=== PATIENT | female | born 1970 | race Caucasian/White ===

== ENCOUNTER → 2025-05-15 | Outpatient (CLI) | payer OTHER, SELFPAY ==
--- NOTE | 2025-05-15 14:20 | US_ITS ---
PROCEDURE: KIDNEY AND BLADDER 05/15/2025 REASON FOR EXAM: UTI TECHNIQUE: KIDNEY AND BLADDER COMPARISON: None FINDINGS: Kidneys: Normal renal sizes, parenchymal thicknesses, and echotextures. [place]: No hydronephrosis Cysts or Masses: No cysts or large solid renal masses. RIGHT Kidney Size: 11.2 cm x 5.5 cm x 4.2 cm Volume: 136.56 mL Cortical Thickness (if discernible): 11 mm (>6mm is normal) LEFT Kidney Size: 10.8 cm x 6.1 cm x 5.1 cm Volume: 174.59 mL Cortical Thickness (if discernible): 12.8 mm (>6mm is normal) The urinary bladder is unremarkable. US/Kidney and Bladder IMPRESSION: NORMAL RENAL ULTRASOUND. Reading Location: [id number]
--- OUTSIDE RECORDS SUMMARY | 2025-05-15 18:30 | XMS RPT_ITS | CCD ---
Author Organization [facility] Care Team Providers Care Report Programmer Name Role Phone Karengiovanni Brant Engle Unavailable Unavailable Newbill, Brnat Avilezel Unavailable Unavailable Klonaris, Sam A Unavailable Unavailable Newbill, Brant Engle Unavailable Unavailable Klonaris, Sam A Unavailable Unavailable Newbill, Brant Engle Unavailable Unavailable Tizzano, Jorge P Unavailable Unavailable Klonaris, Sam A Unavailable Unavailable Tizzano, Jorge P Unavailable Unavailable Klonaris, Sam A Unavailable Unavailable Tizzano, Jorge P Unavailable Unavailable Tizzano, Jorge P Unavailable Unavailable Klonaris, Sam A Unavailable Unavailable Tizzano, Jorge P Unavailable Unavailable Klonaris, Sam A Unavailable Unavailable Tizzano, Jorge P Unavailable Unavailable Tizzano, Jorge P Unavailable Unavailable Tizzano, Jorge P Unavailable Unavailable Klonaris, Sam A Unavailable Unavailable Newbill, Brant Engle Unavailable Unavailable Newbill, Brant Engle Unavailable Unavailable Klonaris, Sam A Unavailable Unavailable Newbill, Brant Engle Unavailable Unavailable Klonaris, Sam A Unavailable Unavailable Newbill, Brant Engle Unavailable Unavailable Tizzano, Jorge P Unavailable Unavailable Klonaris, Sam A Unavailable Unavailable Unavailable Primary Care Provider Unavailabl e Klonaris Sam TURPIN Primary Care Provider Tito SPOT WELDER LINE.Angy TURPIN Primary Care Provider Angy Francis CNP Primary Care Provider IAN MORTON Admitting Unavaila ble ANGY FRANCIS Primary Care UnavailIAN Maldonado Admitting Unavaila ble IAN MORTON Attending Unavaila ble KLSAM ELLISON Primary Care Unavailable Tito SPOT WELDER LINE.Angy TURPIN [facility] Primary Care Provider IAN MORTON Attending Unavaila ble KLONARIS, SAM Primary Care Unavailable IAN MORTON Attending Unavaila ble KLONARIS, SAM Primary Care Unavailable KLONARIS, SAM Primary Care Unavailable IAN MORTON Attending Unavaila ble IAN MORTON Attending Unavaila ble TITO, [facility] Primary Care Unavailabl e IAN MORTON Attending Unavaila ble TITO, [facility] Primary Care Unavailabl e IAN MORTON Referring Unavaila ble TITO, [facility] Primary Care Unavailabl e IAN MORTON Admitting Unavaila ble TITO, [facility] Primary Care Unavailabl e IAN MORTON Referring Unavaila ble IAN MORTON Admitting Unavaila ble IAN MORTON Referring Unavaila ble TITO, [facility] Primary Care Unavailabl e IAN MORTON Admitting Unavaila ble IAN MORTON Referring Unavaila ble KLONARIS, SAM Primary Care Unavailable IAN MORTON Attending Unavaila ble TITO, [facility] Primary Care Unavailabl e IAN MORTON Referring Unavaila ble TITO, [facility] Primary Care Unavailabl e IAN MORTON Attending Unavaila ble TITO, [facility] Primary Care Unavailabl e IAN MORTON Referring Unavaila ble TITO, [facility] Primary Care Unavailabl e IAN MORTON Attending Unavaila ble TITO, [facility] Primary Care Unavailabl e IAN MORTON Referring Unavaila ble TITO, [facility] Primary Care Unavailabl e IAN MORTON Attending Unavaila ble TITO, [facility] Primary Care Unavailabl e IAN MORTON Attending Unavaila ble TITO, [facility] Primary Care Unavailabl e IAN MORTON Admitting Unavaila ble IAN MORTON Referring Unavaila ble TITO, [facility] Primary Care Unavailabl e IAN MORTON Attending Unavaila ble TITO, ANGY CHANELL Primary Care Unavailabl e Tito SPOT WELDER LINE.BREAD WRAPPING MACHINE FEEDERAngy Primary Care Provider Tito SPOT WELDER LINE.BREAD WRAPPING MACHINE FEEDERAngy Primary Care Provider TITOHOLLEYE Cisco Primary Care Unavailable COOPERRIDER II, FARTUN H Attending Unavailabl e COOPERRIDER II, FARTUN H Referring Unavailabl e CLDYE BLANCO Attending Unavailable TITO, ANGY M Primary Care Unavailable CLYDE BLANCO Attending Unavailable TITO, ANGY M Primary Care Unavailable Tito SPOT WELDER LINE-BREAD WRAPPING MACHINE FEEDER, Angy Gary Primary Care Prov ider ANGY FRANCIS Attending Unavailable TITO, ANGY M Primary Care Unavailable TITO, ANGY M Attending Unavailable SELF Referring Unavailable TITO, ANGY M Primary Care Unavailable TITO, ANGY M Referring Unavailable TITO, ANGY M Primary Care Unavailable TITO, ANGY M Primary Care Unavailable LISA CONRAD Attending Unavailable TITO, ANGY M Primary Care Unavailable TITO, ANGY M Referring Unavailable TITO, ANGY M Primary Care Unavailable TITO, ANGY M Referring Unavailable TITO, ANGY M Referring Unavailable TITO, ANGY M Primary Care Unavailable TITO, ANGY CHANELL Primary Care Unavailabl e RICO EATON Attending Unavailable TITO, ANGY CHANELL Primary Care UnavailRICO Juarze Attending Unavailable [facility] Doctor, Out of Primary Care Provider Unavai lena [facility] Doctor, Out of Referring Provider Unavailab milly Encarnacion MD, Dr. Vizcarra Attending Provider [phone] Carmita Encarnacion Attending Unavailable [facility] Doctor, Out of Primary Care Unavailable [facility] Doctor, Out of Referring Unavailable Carmita Encarnacion Referring Unavailable [facility] Doctor, Out of Primary Care Unavailable Carmita Encarnacion Attending Unavailable Allergies Allergy Classification Reported Allergen(s) Allergy Type Date of Onset Reaction(s) Facility (1 source) meloxicam; Translations: [Mobic] Drug Allergy [facility] Repository (20 sources) meloxicam; Translations: [MELOXICAM] Drug Allergy 6 Swelling, Other (See Comments) [facility] Work Phone: (1 source) meloxicam Drug Allergy [facility] Repository Medications Current Medications Medication Drug Class(es) Dates Sig (Normalized) Sig (Original) amoxicillin 875 mg / clavulanate 125 mg oral tablet (1 source) Penicillin-class Antibacterial Start: 02-21-2025 End: 02-28-2025 take 1 tablet by mouth twice daily amoxicillin-clav ulanate (Augmentin) 875-125 mg tablet Indications: Acute cystitis with hematuria Take 1 tablet by mouth 2 times a day for 7 days. 14 tablet 02/21/2025 02/28/2025 Active ascorbic acid 500 mg oral tablet (9 sources) Vitamin C take 1 tablet by mouth once daily ascorbic acid, vitamin C, (VITAMIN C) 500 MG tablet Take 1 (one) tablet (500 mg total) by mouth daily Evening . 0 Active benoxinate hydrochloride 4 mg/ml / fluorescein sodium 3 mg/ml ophthalmic solution (2 sources) Diagnostic Dye Start: 11-15-2024 End: 11-15-2024 fluorescein-nelda xinate 0.3-0.4 % 1 Drop (FLURESS) Start: 11-15-2024 End: 11-15-2024 1 Drop, BOTH EYES, DIRECT ED, Starting on 11/15/24 at 1100, Until 11/15/24 at 2259, Administer for applanation tonometry. In the event of a Fluress shortage, administer Samantha-Fluor 1 drop into both eyes as directed for applanation tonometry cephalexin 250 mg oral capsule (1 source) Cephalosporin Antibacterial Start: 05-08-2025 take 1 capsule by mouth once Cephalexin 250 mg capsule Active 250 mg PO ONCE 30 May 08, 2025 12:00am immediately after intercourse cholecalciferol 0.025 mg oral tablet (11 sources) Vitamin D take 1 tablet by mouth once daily cholecalciferol, vitamin D3, 1,000 unit tablet Take 1 (one) tablet (1,000 Units total) by mouth daily Evening . 0 Active End: 02-09-2022 cholecalciferol, vitamin D3, 400 unit Tab Take by mouth daily . 0 02/09/2022 Discontinued collagen/biotin/ascorbic aci d (COLLAGEN 1500 PLUS C ORAL) (9 sources) collagen/biotin/ ascorbic acid (COLLAGEN 1500 PLUS C ORAL) Take by mouth Morning . 0 Active collagen/biotin/ ascorbic acid (COLLAGEN 1500 PLUS C ORAL) Take by mouth . 0 Active estradiol 0.1 mg/ml vaginal cream (1 source) Estrogen Start: 05-08-2025 Estradiol 0.01 % (0.1 mg/gram) cream Active 1 g VAGINAL 3 TIMES A WEEK 42.5 90 3 May 08, 2025 12:00am LORazepam 0.5 mg oral tablet (2 sources) Benzodiazepine Start: 12-17-2024 End: 12-24-2024 take 1 tablet by mouth twice daily as needed LORazepam (ATIVAN) 0.5 mg Indications: Anticipatory anxiety Take 1 tablet by mouth two times a day as needed (prior to flying) for up to 7 days. 12 tablet 12/17/2024 12/24/2024 Active Start: 05-30-2022 End: 06-01-2022 take 1 tablet by mouth twice daily as needed LORazepam (ATIVAN) 0.5 mg Indications: Anticipatory anxiety Take 1 tablet by mouth twice daily as needed (prior to flying) for up to 2 days. 4 tablet 0 05/30/2022 06/01/2022 Active Comment on above: Take 1 tablet by wilfredo twice daily as needed (prior to flying) for up to 2 days. multivitamin (THERAGRAN) per tablet (9 sources) take 1 tablet by mouth once daily multivitamin (THERAGRAN) per tablet Take 1 (one) tablet by mouth daily Evening . 0 Active take 1 tablet by mouth once andres y multivitamin (THERAGRAN) per tablet Take 1 tablet by mouth daily Evening . 0 Active take 1 tablet by mouth once andres y multivitamin (THERAGRAN) per tablet Take 1 tablet by mouth daily . 0 Active nitrofurantoin, macrocrystals 25 mg / nitrofurantoin, monohydrate 75 mg oral capsule (3 sources) Nitrofuran Antibacterial Start: 04-04-2025 End: 04-11-2025 take 1 capsule by mouth twice daily nitrofurantoin, macrocrystal-monohydrate, (Macrobid) 100 mg capsule Indications: Acute cystitis with hematuria Take 1 capsule (100 mg) by mouth 2 times a day for 7 days. 14 capsule 04/04/2025 04/11/2025 Active Start: 03-03-2025 End: 03-10-2025 take 1 capsule by mouth twice daily nitrofurantoin monohydrate and macrocrystal (MACROBID) 100 mg capsule Indications: Acute cystitis with hematuria Take 1 capsule by mouth two times a day for 7 days. 14 capsule 03/03/2025 03/10/2025 omega-3 fatty acids/fish oil (fish oil-omega-3 fatty acids) 300-1,000 mg capsule (9 sources) take 2 capsules by m outh once daily omega-3 fatty acids/fish oil (fish oil-omega-3 fatty acids) 300-1,000 mg capsule Take 2 (two) capsules by mouth daily evening . 0 Active take 1 capsule by mouth once hsirley ly omega-3 fatty acids/fish oil (fish oil-omega-3 fatty acids) 300-1,000 mg capsule Take 2 g by mouth daily evening . 0 Active take 1 capsule by mouth once shirley ly omega-3 fatty acids/fish oil (fish oil-omega-3 fatty acids) 300-1,000 mg capsule Take 2 g by mouth daily . 0 Active phenylephrine hydrochloride 25 mg/ml ophthalmic solution (2 sources) alpha-1 Adrenergic Agonist Start: 11-20-2024 End: 11-21-2024 PHENYLephrine 2.5 % 1 Drop (AK-DILATE, NOLA-SYNEPHRINE) proparacaine hydrochloride 5 mg/ml ophthalmic solution (3 sources) Local Anesthetic Start: 11-20-2024 End: 11-22-2024 proparacaine 0.5 % 1 Drop (ALCAINE) tropicamide 10 mg/ml ophthalmic solution (7 sources) Anticholinergic Start: 11-20-2024 End: 11-21-2024 tropicamide 1 % 1 Drop (MYDRIACYL) Start: 11-15-2024 End: 11-15-2024 tropicamide 1 % 1 Drop (MYDR IACYL) Start: 11-15-2024 End: 11-15-2024 1 Drop, BOTH EYES, DIRECT ED, Starting on 11/15/24 at 1100, Until 11/15/24 at 2259, Administer for dilation Start: 05-30-2024 End: 05-31-2024 tropicamide 0.5 % 1 Drop (MY DRIACYL) Start: 05-30-2024 End: 05-31-2024 1 Drop, BOTH EYES, DIRECT ED, Starting on 05/30/24 at 1630, Until 05/31/24 at 0429, Administer for dilation Start: 05-12-2022 End: 05-12-2022 tropicamide 0.5 % 1 Drop (OFELIA FRANCOIS) Completed/Discontinued Medications Medication Drug Class(es) Dates Sig (Normalized) Sig (Original) diclofenac sodium 0.01 mg/mg topical gel (20 sources) Nonsteroidal Anti-inflammatory Drug Start: 05-11-2020 End: 01-09-2024 apply 2 g topically four times daily diclofenac sodium (VOLTAREN) 1 % topical gel Indications: Pain in joint, multiple sites , Neck pain , Chronic left shoulder pain , Primary osteoarthritis of left shoulder APPLY 2 GRAMS TO AFFECTED AREA FOUR TIMES DAILY. 200 g 0 05/11/2020 01/09/2024 Discontinued Start: 05-11-2020 diclofenac sod ium 1 % Gel As needed . 0 05/11/2020 Active Comment on above: APPLY 2 GRAMS TO AFF ECTED AREA FOUR TIMES DAILY. ibuprofen 200 mg oral tablet (20 sources) Nonsteroidal Anti-inflammatory Drug End: 2024 take 1 tablet by mouth every six hours as needed ibuprofen (MOTRIN) 200 mg tablet Take 200 mg by mouth every 6 hours as needed. 01/29/2025 Discontinued Comment on above: Take 200 mg by mouth every 6 hours as needed. methylPREDNISolone (2 sources) Corticosteroid Start: 2021 End: 2021 methylPREDNISolone (MEDROL DOSEPACK) 4 mg tablet Follow package directions . 21 tablet 0 11/24/2021 11/30/2021 Start: 11-24-2021 End: 11-30-2021 methylPREDNISolone (MEDROL D OSEPACK) 4 mg tablet Follow package directions . 21 tablet 0 11/24/2021 11/30/2021 Active multivitamin tablet (17 sources) End: 01-29-2025 multivitamin tablet Take 1 t ablet by mouth. 01/29/2025 Discontinued multivitamin tab let Take 1 tablet by mouth. Active multivitamin tab let Take 1 tablet by mouth. 0 Active Comment on above: Take 1 tablet by . naproxen 500 mg oral tablet (14 sources) Nonsteroidal Anti-inflammatory Drug Start: 0 End: 4 take 1 tablet by mouth twice daily as needed for pain naproxen (NAPROSYN) 500 mg tablet Indications: Chronic left shoulder pain , Chronic neck pain Take 1 tablet by mouth twice daily as needed (FOR PAIN - TAKE WITH FOOD.). 60 tablet 1 10/22/2019 01/09/2024 Discontinued Comment on above: Take 1 tablet by wilfredo twice daily as needed (FOR PAIN - TAKE WITH FOOD.). omega-3 fatty acids/fish oil (FISH OIL-OMEGA-3 FATTY ACIDS) 300-1,000 mg cap (17 sources) End: 5 omega-3 fatty acids/fish oil (FISH OIL-OMEGA-3 FATTY ACIDS) 300-1,000 mg cap Take 2 capsules by mouth. 01/29/2025 Discontinued omega-3 fatty ac ids/fish oil (FISH OIL-OMEGA-3 FATTY ACIDS) 300-1,000 mg cap Take 2 capsules by mouth. Active omega-3 fatty ac ids/fish oil (FISH OIL-OMEGA-3 FATTY ACIDS) 300-1,000 mg cap Take 2 capsules by mouth. 0 Active Comment on above: Take 2 capsules by m out. polymyxin b 11298 unt/ml / trimethoprim 1 mg/ml ophthalmic solution (6 sources) Dihydrofolate Reductase Inhibitor Antibacterial, Polymyxin-class Antibacterial Start: 5 End: 5 take 1 drop(s) into the eye(s) four times daily polymyxin B-trimethoprim (POLYTRIM) 10,000 unit- 1 mg/mL ophthalmic solution Use 1 Drop in the right eye four times daily. 10 mL 11/21/2024 01/29/2025 Discontinued Start: 11-20-2024 End: 11-21-2024 take 1 drop(s) into the eye(s) every two hours polymyxin B-trimethoprim (POLYTRIM) 10,000 unit- 1 mg/mL ophthalmic solution Use 1 Drop in the right eye every 2 hours. 10 mL 11/20/2024 11/21/2024 Discontinued sertraline 50 mg oral tablet (1 source) Serotonin Reuptake Inhibitor Start: 02-07-2021 End: 12-15-2021 take 1 tablet by mouth once daily sertraline (ZOLOFT) 50 mg tablet Take 1 tablet by mouth once daily. 30 tablet 2 02/07/2021 12/15/2021 Discontinued Comment on above: Take 1 tablet by wilfredo once daily. triamcinolone acetonide 40 mg/ml injectable suspension (2 sources) Corticosteroid Start: 04-30-2017 End: 04-30-2017 triamcinolone acetonide (KENALOG-40) injection 20 mg Start: 04-30-2017 End: 04-30-2017 triamcinolone acetonide (SANDEE ALOG-40) injection 20 mg 20 mg, Intra-articular, Once, 04/30/17 at 1230, For 1 dose, [facility] [id number] Problems Active Problems Problem Classification Problem Date Documented Da te Episodic/Chronic Acquired foot deformities (20 sources) Hammer toe; Translations: [Other hammer toe(s) (acquired), left foot] Onset: 01-24-2022 Chronic Anxiety disorders (20 sources) Anxiety; Translations: [Anxiety disorder, unspecified] Onset: 09-27-2016 Chronic Genitourinary symptoms and ill-defined conditions (5 sources) Dysuria; Translations: [Dysuria] Onset: 03-03-2025 03-22-2025 Episodic Heart valve disorders (1 source) Abnormal cardiac rate; Translations: [Unspecified abnormalities of heart beat] Episodic Inflammation; infection of eye (except that caused by tuberculosis or sexually transmitteddisease) (2 sources) Acute infectious conjunctivitis; Translations: [Unspecified acute conjunctivitis, right eye] 11-20-2024 Episodic Malaise and fatigue (1 source) Fatigue; Translations: [Other fatigue] Episodic Nonmalignant breast conditions (2 sources) Large breast; Translations: [Hypertrophy of breast] Episodic Nutritional deficiencies (4 sources) Vitamin D deficiency; Translations: [Vitamin D deficiency, unspecified] Onset: 01-29-2025 Chronic Other bone disease and musculoskeletal deformities (3 sources) Osteopenia; Translations: [Other specified disorders of bone density and structure, unspecified site] 01-29-2025 Episodic Other bone disease and musculoskeletal deformities (1 source) Other specified disorders of bone density and structure, unspecified site; Translations: [Osteopenia, unspecified location] Onset: 01-29-2025 Episodic Other connective tissue disease (5 sources) Pain in left foot; Translations: [Pain in left foot] Episodic Other eye disorders (1 source) Optic disc cup finding; Translations: [Other disorders of optic disc, bilateral] Chronic Other eye disorders (3 sources) Posterior vitreous detachment of right eye; Translations: [Vitreous degeneration, right eye] 11-15-2024 Chronic Other eye disorders (2 sources) Bilateral vitreous floaters; Translations: [Other vitreous opacities, bilateral] 11-20-2024 Chronic Other eye disorders (1 source) Dry eyes; Translations: [Dry eye syndrome of bilateral lacrimal glands] 05-30-2024 Episodic Other gastrointestinal disorders (1 source) Other constipation; Translations: [Chronic constipation] Onset: 03-03-2025 Episodic Other gastrointestinal disorders (1 source) Chronic constipation; Translations: [Other constipation] 03-03-2025 Episodic Other non-traumatic joint disorders (2 sources) Hip pain; Translations: [Pain in right hip] 01-09-2024 Episodic Other nutritional; endocrine; and metabolic disorders (8 sources) Obese class I; Translations: [Obesity, unspecified] Onset: 02-09-2022 02-09-2022 Chronic Other nutritional; endocrine; and metabolic disorders (1 source) Obesity; Translations: [Class 2 obesity without serious comorbidity with body mass index (BMI) of 36.0 to 36.9 in adult, unspecified obesity type] 01-29-2025 Chronic Other screening for suspected conditions (not mental disorders or infectious disease) (20 sources) Patient encounter status; Translations: [Encounter for screening mammogram for malignant neoplasm of breast] Onset: 05-24-2024 Episodic Residual codes; unclassified (3 sources) General well-being finding; Translations: [Personal history of other specified conditions] Episodic Residual codes; unclassified (2 sources) Other specified postprocedural states; Translations: [Other specified postprocedural states] Onset: 08-24-2022 Episodic Residual codes; unclassified (3 sources) Postmenopausal state; Translations: [Asymptomatic menopausal state] 01-29-2025 Episodic Residual codes; unclassified (1 source) Acquired absence of both cervix and uterus; Translations: [S/P hysterectomy] Onset: 03-03-2025 Episodic Residual codes; unclassified (1 source) Asymptomatic menopausal state; Translations: [Post-menopausal] Onset: 01-29-2025 Episodic Spondylosis; intervertebral disc disorders; other back problems (1 source) Cervical radiculopathy Chronic Spondylosis; intervertebral disc disorders; other back problems (1 source) Backache; Translations: [Dorsalgia, unspecified] Episodic Urinary tract infections (10 sources) Acute cystitis; Translations: [Acute cystitis with hematuria] Onset: 02-21-2025 02-21-2025 Episodic Past or Other Problems Problem Classification Problem Date Documented Date Episodic/Chronic Blindness and vision defects (20 sources) Regular astigmatism; Translations: [Regular astigmatism, unspecified eye] Onset: 05-04-2014 05-03-2018 Episodic Other connective tissue disease (1 source) Soft tissue lesion of shoulder region Episodic Other connective tissue disease (4 sources) Metatarsalgia of left foot; Translations: [Metatarsalgia, left foot] Onset: 12-08-2021 Episodic Other connective tissue disease (20 sources) Spasm; Translations: [Other muscle spasm] Onset: 09-27-2016 09-27-2016 Episodic Other connective tissue disease (2 sources) Pain in left foot; Translations: [Pain in left foot] Onset: 03-02-2022 Episodic Other connective tissue disease (1 source) Metatarsalgia, left foot; Translations: [Metatarsalgia, left foot] Onset: 12-08-2021 Episodic Other non-traumatic joint disorders (2 sources) Shoulder pain Episodic Residual codes; unclassified (2 sources) Personal history of other specified conditions; Translations: [Personal history of other specified conditions] Onset: 03-02-2022 Episodic Unclassified (1 source) Patient encounter status 01-29-2025 Results Test Name Value Interpretation Reference Range Facility MR/Chyna 05-08-2025 /[facility] [address] [place] [address], [address] [place] [address] OFFICE VISIT Date of Service: 05/08/25 MR#: [id number] Acct: [id number] Name: NAN FREY Rep #: [id number] : 1970 Provider: Dr. Carmita Flores i, MD Age/Sex: 55/F Location: [facility] Status: Signed Intake Vital Signs 05/08/25 11:43 Height 5 ft 8.5 in Weight: 235 lb BMI 35.2 BP 148/80 H Pulse 80 Temp 98 F Intake Visit Reasons: new- pressure and discomfort Chief Complaint: Pressure and discomfort [employer] Required: No Is patient in pain?: No Allergies meloxicam Allergy (Mild, Verified 05/08/25 13:24) Swelling Have you fallen in the past year?: No [facility] Medical History (Updated 05/12/25 @ 00:[address] Carmita Encarnacion MD) Constipation Overactive bladder Vaginal atrophy Urinary tract infection Back problem Osteopenia Hammer toe History of gallium scan Surgical History (Updated 05/08/25 @ 11:59 by Mary Engle) History of tonsillectomy and adenoidectomy History of laparoscopy H/O section History of hysterectomy HPI HPI Urology Chief Complaint: Pressure and discomfort Details: NAN FREY, is a 55 F. She is here for evaluation and management of urinary tract infections and urgency/frequency. The frequency started prior to the infections. She is voiding about 10 times during the day, 0-1 times at night. There is no urge incontinence where she cannot make it to the bathroom. There is no stress incontinence with cough, laugh, sneeze, lifting, etc. She is using no pads in 24 hours. She has had 3 urinary tract infections in the 3 months. She had recurrent symptoms a week or 2 after finishing antibiotics. She has not had visible blood in her urine. She is sexually active. She does think the infections are related to intercourse. There is no sensation of vaginal bulging. There is a heaviness and achey feeling. She has the following issues with chronic bowel function: chronic constipation. There is no pelvic pain. ROS Const Constitutional: No chills, fatigue, fever(s), headache(s), night sweats, weakness, weight change, abnormal sleep pattern or change in appetite Eyes Eyes: No change in vision ENT ENT: No headache(s) or dry mouth Resp Respiratory: No cough, chest congestion, shortness of breath or wheezing Cardio Cardiology: Positive for other (No chest pain.); No shortness of breath, irregular heart rhythm or lightheadedness Gastro GI: Positive for other (No nausea.); No abdominal pain, change in bowel habits, constipation, diarrhea or vomiting Musc Musculoskeletal: No abnormal gait Skin Skin: No yellowing of the eye, lesions, itchy eyes, rash or skin ulcer Neuro Neurology: No abnormal gait, confusion, dizziness, weakness, headache(s) or memory loss Psych Psychiatric: No abnormal sleep pattern, No change in appetite, No confusion and No memory loss Endo Endocrine: No fatigue, increased thirst/drinking or weight change Aller/Imm Allergy/Immunologic: No itchy eyes or wheezing Eleazar/Lymp Hematologic/Lymphatic: No easy bleeding, easy bruising or enlarged lymph nodes Exam Const General: cooperative, healthy appearing, comfortable and no acute distress [facility] Head: normocephalic and atraumatic Ears: hearing grossly normal bilaterally and external ears normal Nose: external nose normal Eyes General: appearance normal, both eyes and all related structures Neck Neck: normal visual inspection and trachea midline Chest Chest palpation inspection: normal inspection of the chest Resp Effort Inspection: normal respiratory effort, able to speak in complete sentences and symmetric chest movement Cardio Rate: regular rate GI Inspection: normal to inspection Palpation: soft and nontender General: No CVA tenderness Skin General: no rashes or lesions noted Neuro General: patient alert, patient awake, patient oriented x3 and CN's II-XI intact bilaterally Extrem General: normal to inspection Psych Appearance: grossly normal and well kempt Mental Status: mental status grossly normal Results POC UA Auto w/o Microscopy Office Urine Color YELLOW Last Edit by Mary Engle on 05/08/25 13:25 Office Urine Clarity Clear Last Edit by Mary Engle on 05/08/25 13:25 Office Urine Glucose Negative Last Edit by Mary Engle on 05/08/25 13:25 Office Urine Ketones Negative Last Edit by Mary Engle on 05/08/25 13:25 Office Urine Bilirubin Negative Last Edit by Mary Engle on 05/08/25 13:25 Office Urine Urobilinogen Negative Last Edit by Mary Engle on 05/08/25 13:25 Off Ur Spec Otto 1.015 Last Edit by Mary Engle on 05/08/25 13:25 Office Urine pH Last Edit by Mary Engle on 05/08/25 13:25 Office Urine Protein Last Edit by Mary Engle on 05/08/25 13:25 Office Urine Blood Negative Last Ed (more content not included)... Normal [facility] CULTURE, URINE, ROUTINEon CULTURE, URINE, ROUTINE SEE NOTE Normal [facility] Comment on above: Result Comment: CULTURE, URINE, ROUTINE Micro Number: [id number] Test Status: Final Specimen Source: Not given Specimen Quality: Adequate Result: No Growth Performed By: #### 3 95 #### [facility] [address] [facility], [address] [place] [address] Rifle Case Repairer: Tonio Crespo MD POCT UA (nonautomated w/o mi croscopy) manually resultedon 04-04-2025 Appearance (U) Cloudy Abnormal Clear [facility] Work Phone: [phone] Glucose Test strip (U) [Mass/Vol] Negative NEGATIVE mg/dl [facility] Work Phone: [phone] Hemoglobin Ql (U) SMALL (1+) Abnormal NEGATIVE [facility] Work Phone: [phone] Interpretation and review of laboratory results Abnormal [facility] Work Phone: [phone] Leukocyte esterase Test strip Ql (U) SMALL (1+) Abnormal NEGATIVE [facility] Work Phone: [phone] Nitrite Ql (U) Negative NEGATIVE [facility] Work Phone: [phone] pH (U) 6.0 [pH] No Reference Range Established [facility] Work Phone: [phone] POC Bilirubin, Urine Negative NEGATIVE [facility] Work Phone: [phone] POC Color, Urine Light-Yellow Straw, Yellow, Light-Yellow [facility] Work Phone: [phone] POC Ketones, Urine Negative NEGATIVE mg/dl [facility] Work Phone: [phone] POC Protein, Urine Negative NEGATIVE mg/dl [facility] Work Phone: [phone] POC Specific Otto, Urine <=1.005 1.005 - 1.035 [facility] Work Phone: [phone] POC Urobilinogen, Urine 0.2 0.2, 1.0 EU/DL [facility] Work Phone: [phone] [facility] Work Phone: [phone] BACTERIAL CULTURE, URINEOrde red By: Li Wong on 03-05-2025 Bacteria identified Cx Nom (U) No growth (<1,000 CFU/ml) [facility] Bacteria identified Cx Nom ( U)Ordered By: Li Wong on 03-05-2025 Interpretation and review of laboratory results Normal [facility] Bacteria Ur Culton 5 Bacteria identified Cx Nom (U) CULTURE, URINE: No growth (<1,000 CFU/ml) Normal [facility] Comment on above: Performed By: #### 6 30-4 ####[facility] [id number] [address] [facility] CNOVon 03-03-2025 CNOV Office Visit (FRANCHESKA WILKINSON) NAN FREY ([id number]) 1970 [facility] Date Time Provider Department 03/03/25 3:40 PM LISA CONRAD During your visit today, we recorded the following information about you: Temperature Pulse Respiration Blood pressure 97.4 degrees 65/minute 19/minute 122/68 Weight Height 106.6 kg 1.702 m Lisa Conrad APRN.BREAD WRAPPING MACHINE FEEDER 03/22/2025 8:59 PM Signed Subjective The patient consented to the use of Okan software for draft documentation of the visit consistent with [facility]?s Notice of Privacy Practices. UTI Nan Frey is a 54-year-old female presenting with dysuria and urinary frequency. Nan was diagnosed with a UTI at Urgent Care in [place] approximately 10 days ago and was prescribed Augmentin for 7 days, which she completed. She reports feeling well until this morning when she experienced dysuria and urinary frequency. She describes the pain as occurring towards the end of micturition and notes a sensation of bladder pressure. She denies hematuria, abdominal pain, nausea, or emesis. She reports chronic lower back pain and constipation, with no recent changes in these symptoms. She has a history of recurrent UTIs, with the last episode occurring in March of the previous year. She also reports pelvic pressure and dyspareunia, which she attributes to a hysterectomy performed 25 years ago. She has an upcoming appointment with a urogynecologist in April to address these concerns. She denies current use of prophylactic antibiotics post-coitus, a regimen she found effective in the past. She recently underwent a colonoscopy in August, which was reportedly normal. She occasionally uses Miralax for constipation but does not take it regularly. She also reports sporadic episodes of postprandial cramping and diarrhea, occurring 3-4 times after eating certain foods, but denies consistent symptoms. I reviewed past medical, surgical, social, and family histories today and updated chart. Allergies, chronic medications, and supplements were also reviewed. PAST MEDICAL HISTORY Diagnosis Date Anxiety state NEGATIVE HISTORY OF No TB, DM, CA, heart dis, pnuemonia PAST SURGICAL HISTORY Procedure Laterality Date CHOLECYSTECTOMY HYSTEROSCOPY, DIAGNOSTIC (SEPARATE 1998 Hysteroscopy PAST SURGICAL HISTORY OF 1995, 1999 C-Sect x 2 TONSILLECTOMY HX Bilateral 09/24/2003 TOTAL ABDOMINAL HYSTERECT W/WO RMVL TUBE OVARY 2000 Hysterectomy, LEVI ALLERGIES Mobic [Meloxicam] MEDICATIONS No prescriptions on file. FAMILY HISTORY Problem Relation Age of Onset Hypertension Mother Hypertension Father Lipids Father other (stomach cancer) Father Esoph Ca (?) other (barretts es) Father Tremor Father other (memory probl) Father Hypertension Brother Dementia Paternal Grandmother 90s Heart Attack Paternal Grandfather 58 Social History Tobacco Use Smoking status: Former Current packs/day: 0.00 Types: Cigarettes Quit date: 04/29/2006 Years since quittin.9 Smokeless tobacco: Never Tobacco comments: quit 2006 Vaping Use Vaping status: Never Used Substance Use Topics Alcohol use: Not Currently Comment: very rarely Drug use: Never Review of Systems Genitourinary: Positive for dysuria. Gastrointestinal: (+) constipation, (+) abdominal cramping, (+) diarrhea, (-) abdominal pain, (-) nausea, (-) vomiting Genitourinary: (+) dysuria, (+) urinary frequency, (+) suprapubic pressure, (+) postcoital discomfort, (-) gross hematuria Musculoskeletal: (+) low back pain Objective BP 122/68 Pulse 65 Temp (Src) 97.4 (Oral) Resp 19 Ht 5' 7 (1.70m) Wt 235 lb (106.6kg) SpO2 96% BMI 36.80 kg/(m2). Physical Exam Constitutional: Appearance: Normal appearance. She is not toxic-appearing. HENT: Mouth/Throat: Lips: [place]. Mouth: Mucous membranes are moist. Pharynx: Oropharynx is clear. Eyes: General: No scleral icterus. Cardiovascular: Rate and Rhythm: Normal rate and regular rhythm. Heart sounds: Normal heart sounds. No murmur heard. Pulmonary: Effort: Pulmonary effort is normal. Breath sounds: Normal breath sounds. No wheezing or rales. Abdominal: General: Bowel sounds are normal. There is no distension or abdominal bruit. Palpations: Abdomen is soft. There is no hepatomegaly, splenomegaly or mass. Tenderness: There is no abdominal tenderness. There is no right CVA tenderness or left CVA tenderness. Musculoskeletal: Right lower leg: No edema. Left lower leg: No edema. Skin: General: Skin is warm and dry. Findings: No bruising or rash. Neurological: General: No focal deficit present. Mental Status: She is alert and oriented to person, place, and time. Sensory: Sensation is intact. Motor: Motor function is intact. Coordination: Coordination is intact. Psychiatric: Attention and Pe (more content not included)... Normal [facility] UA DIP, URINE (POC)on 2024 BILIRUBIN UA (POCT) Negative Negative [facility] CLARITY UA (POCT) Clear [facility] COLOR UA (POCT) Light yellow [facility] GLUCOSE UA (POCT) Negative Negative mg/dL [facility] Hemoglobin Ql (U) Large Abnormal Negative [facility] Interpretation and review of laboratory results Abnormal [facility] KETONE UA (POCT) Negative Negative mg/dL [facility] LEUKOCYTES UA (POCT) Small Abnormal Negative [facility] NITRITE UA (POCT) Negative [facility] PH UA (POCT) 6 4.5 - 8.0 [facility] Protein Ql (U) Negative Negative mg/dL [facility] SPECIFIC GRAVITY UA (POCT) <=1.005 Abnormal 1.005 - 1.030 [facility] UROBILINOGEN UA (POCT) 0.2 Normal E.U./dL [facility] Location:[facility], [address] [place] [address], [id number] [place] [address] POINT OF CARE [facility] BD DXA - AXIAL SKELETONon BD DXA - AXIAL SKELETON * * *Final Report* * * DATE OF EXAM: Feb 25 2025 4:48PM LDX 0804 - BD DXA - AXIAL SKELETON / PROCEDURE REASON: multiple diagnoses * * * * Physician Interpretation * * * * EXAMINATION: DXA BONE DENSITOMETRY BD DXA - AXIAL SKELETON PATIENT DEMOGRAPHICS: Age: 54 years, Gender: Female SCANNER INFORMATION: DXA Model: [facility] [employer] [id number] Date Scanned: 02/25/2025 4:48 PM CLINICAL HISTORY: DIAGNOSTIC Osteopenia, unspecified location Post-menopausal . RISK FACTORS FOR OSTEOPOROSIS AND ASSOCIATED FRACTURES REPORTED BY THIS PATIENT: Please refer to Bone Health Questionnaire in the EMR CURRENT THERAPY: Please refer to Bone Health Questionnaire in the EMR TECHNICAL LIMITATIONS: Degenerative disease of the spine RESULTS: Lumbar spine (L1, L2): 1.082 g/cm2, T-score -0.7, Z-score -1.0 Lumbar spine: 2022: 1.069 g/cm2 No statistically significant change Left Femoral Neck: 0.820 g/cm2, T-score -1.6, Z-score -1.3 Left Total Hip: 0.913 g/cm2, T-score -0.7, Z-score -0.9 Left Total Hip: 2022: 0.907 g/cm2 No statistically significant change CHANGE IS STATISTICALLY SIGNIFICANT IN THE SPINE OR HIP IF GREATER THAN OR EQUAL TO 0.04 g/cm2 VERTEBRAL FRACTURE ASSESSMENT Not performed. TRABECULAR BONE ASSESSMENT TBS not performed: not ordered IMPRESSION: THE LOWEST T-SCORE IS -1.6 IN THE RIGHT HIP 1) DIAGNOSIS (based on BMD alone): OSTEOPENIA Caution: Medical conditions other than osteoporosis may cause low bone density, such as osteomalacia or renal osteodystrophy. Clinical correlation is necessary. 2) FRACTURE RISK (based on FRAX): 10-year absolute fracture risk: - major osteoporotic fracture = 6.4 % - hip fracture = 0.5 % - A diagnosis of Osteoporosis, a 10 year probability of hip fracture greater than or equal to 3% or a 10 year probability of any major osteoporosis-related fracture greater than or equal to 20% should be considered for treatment. - DXA scanner generated FRAX calculations may slightly differ from online FRAX calculations due to differences in software versions. - All recommendations and calculations are to be considered as guidelines and should not replace sound clinical judgement - Caution: Fracture risk may be increased independent of BMD in patients with corticosteroid use, age greater than 65 years, or a history of prior fragility fracture. RECOMMENDATIONS: Follow-up in 2 years or as clinically indicated. Patients that are taking corticosteroids, are transplant recipients or have hyperparathyroidism should have annual follow-up. Follow-up scans should always be done on the same machine for accurate comparison. FOR MORE INFORMATION ABOUT DIAGNOSIS AND TREATMENT: [facility] Center for Osteoporosis and Metabolic Bone Disease:? www.ccf.org/arthritis/osteo National Osteoporosis Foundation:? www.nof.org International Society of Clinical Densitometry www.iscd.org Risk Assessor: JIM Transcribe Date/Time: Feb 28 2025 5:34P Dictated by : CHARO SCHMIDT MD This examination was interpreted and the report reviewed and electronically signed by: CHARO SCHMIDT MD on Feb 28 2025 5:35PM EST [id number] -1.6 Normal [facility] NANCY SCREENING W TOMOon 02-25 NANCY SCREENING W GINGER * * *Final Report* * * DATE OF EXAM: Feb 25 2025 4:45PM LDW 0582 - NANCY SCREENING W GINGER / PROCEDURE REASON: Encounter for screening mammogram for malignant neoplasm of breast * * * * Physician Interpretation * * * * [place] [address] #[id number] - NANCY SCREENING W GINGER HISTORY: 54 year-old patient seen for screening. No current complaints. Patient states no personal history of breast cancer. COMPARISON STUDIES: The present examination has been compared to prior imaging studies dated 07/06/2020 (mammogram), 12/21/2021 (mammogram), 01/10/2023 (mammogram) and 01/23/2024 (mammogram). MAMMOGRAM TECHNIQUE: The study was acquired using full field digital technology and interpreted from soft copy. Digital Breast Tomosynthesis (DBT) images were obtained and used to assist in the interpretation of this examination. MAMMOGRAM FINDINGS: There are scattered areas of fibroglandular density. No suspicious masses, calcifications or other abnormalities are seen in either breast. There are no significant interval changes. IMPRESSION: There is no mammographic evidence of malignancy in either breast. Routine screening mammogram is recommended. Annual mammogram will be due in 1 year. BI-RADS Category 1: Negative RISK: Based on the Tyrer-Cuzick (TC) risk assessment model, this patient has a 3.0% lifetime risk of developing breast cancer, meaning they are at average risk for developing breast cancer. However, this is only an estimate based on available history provided on the patient's questionnaire. We encourage all patients to talk with their providers about these results, further recommendations for managing breast health, and appropriate supplemental screening options if the patient has dense breast tissue. Interpreting Radiologist: Lilian Isaac M.D. Electronically signed on: 02/26/2025 Risk Assessor: MISSY Transcribe Date/Time: Feb 25 2025 4:11P Dictated by : LILIAN ISAAC MD This examination was interpreted and the report reviewed and electronically signed by: LILIAN ISAAC MD on Feb 26 2025 7:30AM EST [id number] Normal [facility] POCT UA (nonautomated w/o mi croscopy) manually resultedon 02-21-2025 Appearance (U) Cloudy Abnormal Clear [facility] Work Phone: Glucose Test strip (U) [Mass/Vol] Negative NEGATIVE mg/dl [facility] Work Phone: Hemoglobin Ql (U) LARGE (3+) Abnormal NEGATIVE [facility] Work Phone: Interpretation and review of laboratory results Abnormal [facility] Work Phone: Leukocyte esterase Test strip Ql (U) LARGE (3+) Abnormal NEGATIVE [facility] Work Phone: Nitrite Ql (U) Negative NEGATIVE [facility] Work Phone: pH (U) 5.5 [pH] No Reference Range Established [facility] Work Phone: POC Bilirubin, Urine Negative NEGATIVE [facility] Work Phone: POC Color, Urine Yellow Straw, Yellow, Light-Yellow [facility] Work Phone: POC Ketones, Urine Negative NEGATIVE mg/dl [facility] Work Phone: POC Protein, Urine 30 (1+) Abnormal NEGATIVE mg/dl [facility] Work Phone: POC Specific Otto, Urine 1.010 1.005 - 1.035 [facility] Work Phone: POC Urobilinogen, Urine 0.2 0.2, 1.0 EU/DL [facility] Work Phone: [facility] Work Phone: 25(OH)D3 [facility] 2024 25-hydroxyvitamin D3 [Mass/Vol] 62.4 ng/mL Normal >=30.0 [facility] Comment on above: Order Comment: Speci men Type: BLOOD SPECIMEN Ordering Facility: [facility] Address: [address] [place] [address] Result Comment: Clas sification of 25 [place] Vitamin D status: Deficiency: <= 20.0 ng/ml. Insufficiency: 21.0-29.0 ng/ml. Sufficiency: >= 30.0 ng/ml. Performed By: #### 1 989-3 #### [facility] CLIA [id number] [address] [place] [address] [place] CBC panel Auto (Bld)on 02-06 Erythrocyte distribution width (RBC) [Ratio] 12.5 % Normal 11.5-15.0 [facility] Comment on above: Order Comment: Speci men Type: BLOOD SPECIMEN Ordering Facility: [facility] Address: [address] [place] [address] Performed By: #### 5 8410-2 #### [facility] CLIA [id number] [address] [place] [address] [place] Hematocrit (Bld) [Volume fraction] 40.1 % Normal 36.0-46.0 [facility] Comment on above: Order Comment: Speci men Type: BLOOD SPECIMEN Ordering Facility: [facility] Address: [address] [place] [address] Performed By: #### 5 8410-2 #### [facility] CLIA [id number] [address] [place] [address] [place] Hemoglobin (Bld) [Mass/Vol] 13.3 g/dL Normal 11.5-15.5 [facility] Comment on above: Order Comment: Speci men Type: BLOOD SPECIMEN Ordering Facility: [facility] Address: [address] [place] [address] Performed By: #### 5 8410-2 #### [facility] CLIA [id number] [address] [place], [place] [address] [place] [address] [place] MCH (RBC) [Entitic mass] 29.0 pg Normal 26.0-34.0 [facility] Comment on above: Order Comment: Speci men Type: BLOOD SPECIMEN Ordering Facility: [facility] Address: [address] [place] [address] Performed By: #### 5 8410-2 #### [facility] CLIA [id number] [address] [place] [address] [place] MCHC (RBC) [Mass/Vol] 33.2 g/dL Normal 30.5-36.0 [facility] Comment on above: Order Comment: Speci men Type: BLOOD SPECIMEN Ordering Facility: [facility] Address: [address] [place] [address] Performed By: #### 5 8410-2 #### [facility] CLIA [id number] [address] [place] [id number] [place] MCV (RBC) [Entitic vol] 87.6 fL Normal 80.0-100.0 [facility] Comment on above: Order Comment: Speci men Type: BLOOD SPECIMEN Ordering Facility: [facility] Address: [address] [place] [address] Performed By: #### 5 8410-2 #### [facility] CLIA [id number] [address] [place] [address] [place] Platelet mean volume (Bld) [Entitic vol] 9.3 fL Normal 9.0-12.7 [facility] Comment on above: Order Comment: Speci men Type: BLOOD SPECIMEN Ordering Facility: [facility] Address: [address] [place] [address] Performed By: #### 5 8410-2 #### [facility] CLIA [id number] [address] [place] [address] [place] Platelets (Bld) [#/Vol] 270 10*3/uL Normal 150-400 [facility] Comment on above: Order Comment: Speci men Type: BLOOD SPECIMEN Ordering Facility: [facility] Address: [address] [place] [address] Performed By: #### 5 8410-2 #### [facility] CLIA [id number] [address] [place] [address] [place] RBC (Bld) [#/Vol] 4.58 10*6/uL Normal 3.90-5.20 [facility] Comment on above: Order Comment: Speci men Type: BLOOD SPECIMEN Ordering Facility: [facility] Address: [address] [place] [address] Performed By: #### 5 8410-2 #### [facility] CLIA [id number] [address] [place] [address] [place] WBC (Bld) [#/Vol] 6.38 10*3/uL Normal 3.70-11.00 [facility] Comment on above: Order Comment: Speci men Type: BLOOD SPECIMEN Ordering Facility: [facility] Address: [address] [place] [address] Performed By: #### 5 8410-2 #### [facility] CLIA [id number] [address] [place] [address] [facility] [place] Comprehensive metabolic 2000 panelon 02-06-2025 Albumin [Mass/Vol] 4.2 g/dL Normal 3.9-4.9 [facility] Comment on above: Order Comment: Speci men Type: BLOOD SPECIMEN Ordering Facility: [facility] Address: [address] [place] [address] Performed By: #### 2 4323-8, 54768-4 #### [facility] CLIA [id number] [address] [place] [address] [place] ALP [Catalytic activity/Vol] 107 U/L Normal 34-123 [facility] Comment on above: Order Comment: Speci men Type: BLOOD SPECIMEN Ordering Facility: [facility] Address: [address] [place], [place] [address] Performed By: #### 2 4323-8, 77648-8 #### [facility] CLIA [id number] [address] [place] [address] [place] ALT With P-5'-P [Catalytic activity/Vol] 25 U/L Normal 7-38 [facility] Comment on above: Order Comment: Speci men Type: BLOOD SPECIMEN Ordering Facility: [facility] Address: [address] [place], [place] [address] Performed By: #### 2 4323-8, 12999-9 #### [facility] CLIA [id number] [address] [place] [address] [place] Anion gap [Moles/Vol] 11 mmol/L Normal 8-15 [facility] Comment on above: Order Comment: Speci men Type: BLOOD SPECIMEN Ordering Facility: [facility] Address: [address] [place] [address] Performed By: #### 2 4323-8, 91573-7 #### [facility] CLIA [id number] [address] [place] [address] [place] AST With P-5'-P [Catalytic activity/Vol] 27 U/L Normal 13-35 [facility] Comment on above: Order Comment: Speci men Type: BLOOD SPECIMEN Ordering Facility: [facility] Address: [address] [place] [address] Performed By: #### 2 4323-8, 52036-9 #### [facility] CLIA [id number] [address] [place] [address] [place] Bilirubin [Mass/Vol] 0.4 mg/dL Normal 0.2-1.3 [facility] Comment on above: Order Comment: Speci men Type: BLOOD SPECIMEN Ordering Facility: [facility] Address: [address] [place] [address] Performed By: #### 2 4323-8, 80407-2 #### [facility] CLIA [id number] [address] [place] [address] [place] Calcium [Mass/Vol] 9.7 mg/dL Normal 8.5-10.2 [facility] Comment on above: Order Comment: Speci men Type: BLOOD SPECIMEN Ordering Facility: [facility] Address: [address] [place] [address] Performed By: #### 2 4323-8, 64203-2 #### [facility] CLIA [id number] [address] [place] [address] [place] Chloride [Moles/Vol] 105 mmol/L Normal 98-107 [facility] Comment on above: Order Comment: Speci men Type: BLOOD SPECIMEN Ordering Facility: [facility] Address: [address] [place] [address] Performed By: #### 2 4323-8, 75824-3 #### [facility] CLIA [id number] [address] [place] [address] [place] CO2 [Moles/Vol] 26 mmol/L Normal 22-30 [facility] Comment on above: Order Comment: Speci men Type: BLOOD SPECIMEN Ordering Facility: [facility] Address: [address] [place] [address] Performed By: #### 2 4323-8, 65026-7 #### [facility] [facility] CLIA [id number] [address] [place] [address] [place] Creatinine [Mass/Vol] 0.90 mg/dL Normal 0.58-0.96 [facility] Comment on above: Order Comment: Candi sosa Type: BLOOD SPECIMEN Ordering Facility: [facility] Address: [address] [place] [address] Performed By: #### 2 4323-8, 19442-0 #### [facility] CLIA [id number] [address] [place] [address] [place] Creatinine and Glomerular filtration rate.predicted panel (S/P/Bld) 76 mL/min/1.73m??? Normal >=60 [facility] Comment on above: Order Comment: Candi sosa Type: BLOOD SPECIMEN Ordering Facility: [facility] Address: [address] [place] [address] Result Comment: Lucrecia mated Glomerular Filtration Rate (eGFR) is calculated using the 2020 CKD-EPI creatinine equation. This equation utilizes serum creatinine, sex, and age as parameters. The creatinine assay has traceable calibration to isotope dilution-mass spectrometry. Refer to KDIGO guidelines for clinical interpretation. In patients with unstable renal function, e.g. those with acute kidney injury, the eGFR may not accurately reflect actual GFR. Performed By: #### 2 4323-8, 21998-9 #### [facility] CLIA [id number] [address] [place] [address] [place] Glucose [Mass/Vol] 94 mg/dL Normal 74-99 [facility] Comment on above: Order Comment: Candi sosa Type: BLOOD SPECIMEN Ordering Facility: [facility] Address: [address] [place] [address] Result Comment: The [place] Diabetes Association (ADA) provides guidance for cutoff values for fasting glucose and random glucose. The ADA defines fasting as no caloric intake for at least 8 hours. Fasting plasma glucose results between 100 to 125 mg/dL indicate increased risk for diabetes (prediabetes). Fasting plasma glucose results greater than or equal to 126 mg/dL meet the criteria for diagnosis of diabetes. In the absence of unequivocal hyperglycemia, results should be confirmed by repeat testing. In a patient with classic symptoms of hyperglycemia or hyperglycemic crisis, random plasma glucose results greater than or equal to 200 mg/dL meet the criteria for diagnosis of diabetes. Reference: Standards of Medical Care in Diabetes 2016, [place] Diabetes Association. Diabetes Care. 2016.39(Suppl 1). Performed By: #### 2 4323-8, 83146-9 #### [facility] CLIA [id number] [address] [place] [address] [place] Potassium [Moles/Vol] 4.8 mmol/L Normal 3.7-5.1 [facility] Comment on above: Order Comment: Speci men Type: BLOOD SPECIMEN Ordering Facility: [facility] Address: [address] [place] [address] Performed By: #### 2 4323-8, 08489-1 #### [facility] CLIA [id number] [address] [place] [address] [place] Protein [Mass/Vol] 7.1 g/dL Normal 6.3-8.0 [facility] Comment on above: Order Comment: Speci men Type: BLOOD SPECIMEN Ordering Facility: [facility] Address: [address] [place] [address] Performed By: #### 2 4323-8, 88593-1 #### [facility] CLIA [id number] [address] [place] [address] [place] Sodium [Moles/Vol] 142 mmol/L Normal 136-144 [facility] Comment on above: Order Comment: Speci men Type: BLOOD SPECIMEN Ordering Facility: [facility] Address: [address] [place] [address] Performed By: #### 2 4323-8, 25825-4 #### [facility] CLIA [id number] [address] [place] [address] [place] Urea nitrogen [Mass/Vol] 13 mg/dL Normal 7-21 [facility] Comment on above: Order Comment: Speci men Type: BLOOD SPECIMEN Ordering Facility: [facility] Address: [address] [place] [address] Performed By: #### 2 4323-8, 21310-0 #### [facility] CLIA [id number] [address] [place] [address] [facility] Lipid 1996 panelon 5 Cholesterol [Mass/Vol] 188 mg/dL Normal <200 [facility] Comment on above: Order Comment: Candi sosa Type: BLOOD SPECIMEN Ordering Facility: [facility] Address: [address] [place] [address] Result Comment: <200 mg/dL, Desirable 200-239 mg/dL, Borderline high >239 mg/dL, High Performed By: #### 2 4323-8, 04480-7 #### [facility] CLIA [id number] [address] [place] [address] [facility] Cholesterol in HDL [Mass/Vol] 64 mg/dL Normal >39 [facility] Comment on above: Order Comment: Candi sosa Type: BLOOD SPECIMEN Ordering Facility: [facility] Address: [address] [place] [address] Result Comment: 40-5 9 mg/dL, Acceptable >59 mg/dL, High: Negative risk factor for coronary heart disease <40 mg/dL, Low: Positive risk factor for coronary heart disease Performed By: #### 2 4323-8, 29285-6 #### [facility] CLIA [id number] [address] [place], [place] [address] [place] [address] Cholesterol in LDL [Mass/Vol] 112 mg/dL High <100 [facility] Comment on above: Order Comment: Candi ian Type: BLOOD SPECIMEN Ordering Facility: [facility] Address: [address] [place] [address] Result Comment: <100 mg/dL, Optimal 100-129 mg/dL, Near optimal/above optimal 130-159 mg/dL, Borderline high 160-189 mg/dL, High >189 mg/dL, Very high Secondary prevention optimal LDL Cholesterol levels are recommended to be <70 mg/dL LDL cholesterol is calculated using the Aldana-NIH equation. Performed By: #### 2 4323-8, 60274-5 #### [facility] CLIA [id number] [address] [place] [address] [facility] Cholesterol in LDL/Cholesterol in HDL [Mass ratio] 1.75 {ratio} Normal <2.54 [facility] Comment on above: Order Comment: Candi sosa Type: BLOOD SPECIMEN Ordering Facility: [facility] Address: [address] [place] [address] Result Comment: Debi castillo: 1. National Cholesterol Education Program ATP III Guideline At-A-Glance Quick Desk Reference: National Heart, Lung, and Blood [place]. National Institutes of Health. 2001: NIH Publication No. 01-3305. 2. An International Atherosclerosis Society position paper: global recommendations for the management of dyslipidemia: executive summary, Atherosclerosis. 2014: 232(2):410-413. Performed By: #### 2 4323-8, 36104-0 #### [employer] [facility] CLIA [id number] [address] [place] [address] [place] Cholesterol in VLDL [Mass/Vol] 11 mg/dL Normal <30 [facility] Comment on above: Order Comment: Candi sosa Type: BLOOD SPECIMEN Ordering Facility: [facility] Address: [address] [place] [address] Performed By: #### 2 4323-8, 54982-4 #### [employer] [facility] CLIA [id number] [address] [place] [address] [place] Cholesterol non HDL [Mass/Vol] 124 mg/dL Normal <130 [facility] Comment on above: Order Comment: Candi sosa Type: BLOOD SPECIMEN Ordering Facility: [facility] Address: [address] [place] [address] Result Comment: <130 mg/dL, Optimal 130-159 mg/dL, Near optimal/above optimal 160-189 mg/dL, Borderline high 190-219 mg/dL, High >219 mg/dL, Very high Secondary prevention optimal non HDL Cholesterol levels are recommended to be <100 mg/dL Performed By: #### 2 4323-8, 03542-2 #### [employer] [facility] CLIA [id number] [address] [place] [address] [place] Cholesterol.total /Cholesterol in HDL [Mass ratio] 2.94 {ratio} Normal <5.10 [facility] Comment on above: Order Comment: Candi sosa Type: BLOOD SPECIMEN Ordering Facility: [facility] Address: [address] [place] [id number] Performed By: #### 2 4323-8, 28375-5 #### [facility] CLIA [id number] [address] [place] [address] [facility] [place] FASTING TIME 12 hrs Normal [facility] Comment on above: Order Comment: Speci men Type: BLOOD SPECIMEN Ordering Facility: [facility] Address: [address] [place] [address] Performed By: #### 2 4323-8, 91097-8 #### [facility] CLIA [id number] [address] [place] [address] [facility] Triglyceride [Mass/Vol] 67 mg/dL Normal <150 [facility] Comment on above: Order Comment: Candi sosa Type: BLOOD SPECIMEN Ordering Facility: [facility] Address: [address] [place] [address] Result Comment: <150 mg/dL, Normal 150-199 mg/dL, Borderline high 200-499 mg/dL, High >499 mg/dL, Very high Performed By: #### 2 4323-8, 03909-6 #### [facility] CLIA [id number] [address] [place] [address] [facility] CNOVon 01-29-2025 CNOV Office Visit (AGINTM LW) NAN FREY ([id number]) 1970 F [facility] Date Time Provider Department 01/29/25 2:40 PM ANGY FRANCIS During your visit today, we recorded the following information about you: Temperature Pulse Blood pressure Weight 97.9 degrees 73/minute 118/78 105.9 kg Height 1.702 m Angy Francis, SPOT WELDER [employer].BREAD WRAPPING MACHINE FEEDER 01/29/2025 4:16 PM Signed This note was created using [email or web address]. Subjective Nan Frey is a 54 year old female here today for WAE. Patient denies changes in health since last office visit. Reports feeling well. Denies concerns or complaints today. I reviewed patients past medical, surgical, social, and family histories today and updated chart. Allergies, chronic medications, and supplements were also reviewed and list is now up to date. Annual Wellness Exam: - No changes in health since last visit. - Recent trip to [place]. - Plans to visit [place] and [place] in June. - Denies fevers, chills, cough, dyspnea, chest pain, palpitations, edema, headaches, dizziness, skin lesions, bruising, bleeding, nausea, emesis, diarrhea, hematochezia, hematuria, abdominal pain, dysphagia, heartburn, sore throat, voice changes, or night sweats. - Denies varicose veins. - No longer taking multivitamin or omega-3 fish oil. - Takes ibuprofen PRN. Allergies: - Takes Xyzal daily for sneezing and pruritus oculi. Colonoscopy: - Last colonoscopy in August; polyps removed by Dr. Neely. Skin Cancer Screening: - Last screening was last year; needs to reschedule upcoming appointment. DEXA Scan: - Last DEXA scan in December 2022 showed osteopenia. Hysterectomy: - Total hysterectomy at age 30 due to endometriosis; ovaries removed. Weight Management: - Weight: 233 lbs. - Gained back 60 lbs of the 80 lbs lost 7-8 years ago. - Previously ran 15 miles/week; no longer running due to joint pain in feet and hips. - Increased steps and monitored diet in September; lost 5 lbs in 3 months but became discouraged. - Currently not exercising regularly; only walking and doing house cleaning and mowing. Neck Pain: - Chronic neck pain managed with animal care worker and monthly massage therapy. - Occasional numbness and tingling associated with neck pain. Hip Pain: - Persistent hip pain; previous X-ray showed no abnormalities. - No significant changes in health status since last visit. - No fevers, chills, cough, shortness of breath, chest pain, palpitations, or edema. - No headaches, dizziness, or unusual skin lesions. - No bruising, bleeding, nausea, vomiting, diarrhea, or hematuria. - No dysphagia, heartburn, sore throat, or voice changes. - No night sweats. - No significant joint pain; managed with chiropractic and massage therapy. - No significant edema; advised use of compression socks if needed. Preventative; she is due for her mammogram. She is not exercising. She reports she is trying to walk. Colonoscopy 08/29/24, follow up [address] Neely. ALLERGIES Allergen Reactions Mobic [Meloxicam] Swelling legs Current Outpatient Medications Medication Sig Dispense Refill polymyxin B-trimethoprim (POLYTRIM) 10,000 unit- 1 mg/mL ophthalmic solution Use 1 Drop in the right eye four times daily. (Patient not taking: Reported on 12/17/2024) 10 mL 0 multivitamin tablet Take 1 tablet by mouth. (Patient not taking: Reported on 05/30/2024) omega-3 fatty acids/fish oil (FISH OIL-OMEGA-3 FATTY ACIDS) 300-1,000 mg cap Take 2 capsules by mouth. (Patient not taking: Reported on 05/30/2024) ibuprofen (MOTRIN) 200 mg tablet Take 200 mg by mouth every 6 hours as needed. (Patient not taking: Reported on 05/30/2024) No current facility-administered medications for this visit. ACTIVE PROBLEM LIST Regular Astigmatism Presbyopia Hypermetropia Anxiety Spasm of Muscle PAST MEDICAL HISTORY Diagnosis Date Anxiety state NEGATIVE HISTORY OF No TB, DM, CA, heart dis, pnuemonia PAST SURGICAL HISTORY Procedure Laterality Date CHOLECYSTECTOMY HYSTEROSCOPY, DIAGNOSTIC (SEPARATE 1998 Hysteroscopy PAST SURGICAL HISTORY OF 1995, 1999 C-Sect x 2 TONSILLECTOMY HX Bilateral 09/24/2003 TOTAL ABDOMINAL HYSTERECT W/WO RMVL TUBE OVARY 2001 Hysterectomy, LEVI Social History Tobacco Use Smoking status: Former Current packs/day: 0.00 Types: Cigarettes Quit date: 04/29/2006 Years since quittin.7 Smokeless tobacco: Never Tobacco comments: quit 2006 Vaping Use Vaping status: Never Used Substance Use Topics Alcohol use: No Comment: very rarely Drug use: No Family History Problem Relation Age of Onset Hypertension Mother Hypertension Father Lipids Father other (stomach cancer) Father Esoph Ca (?) other (barretts es) Father Tremor Father other (memory probl) Father Hypertension Brother Dementia Paternal Grandmother 90s Heart Attack (more content not included)... Normal [facility] CNOVon 12-17-2024 [facility] Office Visit (AGINTM LW) NAN FREY ([id number]) 1970 F [facility] Date Time Provider Department 12/17/24 2:20 PM ANGY FRANCIS AGINTMLW During your visit today, we recorded the following information about you: Pulse Respiration Blood pressure Weight 83/minute 18/minute 124/78 106.3 kg Height 1.74 m Angy Francis, GORGE.BREAD WRAPPING MACHINE FEEDER 12/17/2024 2:43 PM Signed This note was created using [employer]imated [employer]. Subjective Nan Frey is a 54 year old female here today for acute visit for requesting medication for upcoming flight. In the past she was given ativan that she takes prior to flying. She will be flying to [place] which is a 11 hours. She is leaving 12/25/24. She reports getting very anxious when flying. States she is normally anxious but worsens when flying. ALLERGIES Allergen Reactions Mobic [Meloxicam] Swelling legs Current Outpatient Medications Medication Sig Dispense Refill polymyxin B-trimethoprim (POLYTRIM) 10,000 unit- 1 mg/mL ophthalmic solution Use 1 Drop in the right eye four times daily. 10 mL 0 multivitamin tablet Take 1 tablet by mouth. (Patient not taking: Reported on 05/30/2024) omega-3 fatty acids/fish oil (FISH OIL-OMEGA-3 FATTY ACIDS) 300-1,000 mg cap Take 2 capsules by mouth. (Patient not taking: Reported on 05/30/2024) ibuprofen (MOTRIN) 200 mg tablet Take 200 mg by mouth every 6 hours as needed. (Patient not taking: Reported on 05/30/2024) No current facility-administered medications for this visit. ACTIVE PROBLEM LIST Regular Astigmatism Presbyopia Hypermetropia Anxiety Spasm of Muscle PAST MEDICAL HISTORY Diagnosis Date Anxiety state NEGATIVE HISTORY OF No TB, DM, CA, heart dis, pnuemonia PAST SURGICAL HISTORY Procedure Laterality Date CHOLECYSTECTOMY HYSTEROSCOPY, DIAGNOSTIC (SEPARATE 1998 Hysteroscopy PAST SURGICAL HISTORY OF 1995, 1999 C-Sect x 2 TONSILLECTOMY HX Bilateral 09/24/2003 TOTAL ABDOMINAL HYSTERECT W/WO RMVL TUBE OVARY 2000 Hysterectomy, LEVI Social History Tobacco Use Smoking status: Former Current packs/day: 0.00 Types: Cigarettes Quit date: 04/29/2006 Years since quittin.6 Smokeless tobacco: Never Tobacco comments: quit 2006 Vaping Use Vaping status: Never Used Substance Use Topics Alcohol use: No Comment: very rarely Drug use: No Family History Problem Relation Age of Onset Hypertension Mother Hypertension Father Lipids Father other (stomach cancer) Father Esoph Ca (?) other (barretts es) Father Tremor Father other (memory probl) Father Hypertension Brother Dementia Paternal Grandmother 90s Heart Attack Paternal Grandfather 58 Review of Systems Constitutional: Negative for chills, fatigue and fever. Respiratory: Negative for cough, shortness of breath and wheezing. Cardiovascular: Negative for chest pain, palpitations and leg swelling. Neurological: Negative for dizziness and headaches. Psychiatric/Behavioral: Negative for dysphoric mood. The patient is nervous/anxious. Objective 12/17/24 1416 BP: 124/78 Pulse: 83 Resp: 18 SpO2: 100% Weight: 106.3 kg (234 lb 6.4 oz) Height: 174 cm (5' 8.5) There were no vitals taken for this visit. Physical Exam Vitals and nursing note reviewed. Constitutional: General: She is not in acute distress. Appearance: She is not ill-appearing. HENT: Head: Normocephalic and atraumatic. Cardiovascular: Rate and Rhythm: Normal rate and regular rhythm. Pulses: Normal pulses. Heart sounds: Normal heart sounds. No murmur heard. Pulmonary: Effort: Pulmonary effort is normal. No respiratory distress. Breath sounds: Normal breath sounds. No wheezing or rhonchi. Skin: General: Skin is warm and dry. Neurological: Mental Status: She is alert and oriented to person, place, and time. Psychiatric: Mood and Affect: Mood normal. Behavior: Behavior normal. Thought Content: Thought content normal. Judgment: Judgment normal. Assessment and Plan ASSESSMENT/PLAN: 1. 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 Will given ativan for flight - [facility] All prescriptions have been APPROPRIATELY filled. No suspicious activity was identified. 12/17/2024 by Angy Francis APRN.BREAD WRAPPING MACHINE FEEDER - LORAZEPAM 0.5 MG TABLET Angy Francis APRN.BREAD WRAPPING MACHINE FEEDER Referring Provider: SELF [200] Allergies As of Date: 12/17/2024 Noted Allergy Reaction MOBIC (MELOXICAM) 05/19/2016 7 - Swelling Comments: legs Date Reviewed: 12/17/2024 Reviewed by: Angy Francis APRN.DYANA - Fully Assessed Reason for Visit: Medication Request [138] Cmt: Pt here for Ativan for flight Visit Diagnosis:Anticipatory anxiety [F41.8] Order(s):LORazepam (ATIVAN) 0.5 mgTake 1 tablet by mouth two times a day as needed (prior to flying) for up to 7 days.Disp: 12 tabletRfl: 0 Prescriptions as of 12/17 (more content not included)... Normal [facility] OCT MACULA CIRRUS OU (BOTH E YES)on 11-20-2024 [facility] Radiology Study observation (narrative) [facility] CNPNon 05-29-2024 ESTELA Telephone (ANY) NAN FREY ([id number]) 1970 F [facility] Date Time Provider Department 05/29/24 ANGY FRANCIS During your visit today, we recorded the following information about you: Fatoumata Palomares MA 05/29/2024 9:55 AM Signed ----- Message from Angy Francis APRN.BREAD WRAPPING MACHINE FEEDER sent at 05/26/2024 9:06 AM EDT ----- Creatinine continues to improve. Recommend we continue to monitor. She soul continue to avoid NSAIDS. Tylenol products only for QIU, pain etc. We recheck again with routine labs in Feb Fatoumata Palomares MA 05/29/2024 9:56 AM Signed Patient is informed Fatoumata Palomares MA Allergies As of Date: 05/29/2024 Noted Allergy Reaction MOBIC (MELOXICAM) 05/19/2016 7 - Swelling Comments: legs Date Reviewed: 05/04/2023 Reviewed by: Martine Pelaez COA - Fully Assessed Reason for Visit: Results [95] Prescriptions as of 05/29/2024 - multivitamin tablet Take 1 tablet by mouth. - omega-3 fatty acids/fish oil (FISH OIL-OMEGA-3 FATTY ACIDS) 300-1,000 mg cap Take 2 capsules by mouth. - ibuprofen (MOTRIN) 200 mg tablet Take 200 mg by mouth every 6 hours as needed. Problem List As Of Date 05/29/2024 Noted Resolved Regular astigmatism [H52.229] 05/04/2014 Presbyopia [H52.4] 05/04/2014 Hypermetropia [H52.00] 04/29/2015 Anxiety [F41.9] 09/27/2016 Spasm of muscle [M62.838] 09/27/2016 Encounter Status:Closed by FATOUMATA PALOMARES on 05/29/24 Normal [facility] Basic metabolic 2000 panelon 05-24-2024 Anion gap [Moles/Vol] 9 mmol/L Normal 8-15 [facility] Comment on above: Order Comment: Specfabiola sosa Type: BLOOD SPECIMEN Ordering Facility: [facility] Address: [address] [place] [address] Performed By: #### 2 4321-2 #### [facility] CLIA [id number] [address] [place] [address] [place] Calcium [Mass/Vol] 9.4 mg/dL Normal 8.5-10.2 [facility] Comment on above: Order Comment: Candi sosa Type: BLOOD SPECIMEN Ordering Facility: [facility] Address: [address] [place] [address] Performed By: #### 2 4321-2 #### [facility] CLIA [id number] [address] [place] [address] [place] Chloride [Moles/Vol] 107 mmol/L Normal 98-107 [facility] Comment on above: Order Comment: Candi men Type: BLOOD SPECIMEN Ordering Facility: [facility] Address: [address] [place] [address] Performed By: #### 2 4321-2 #### [facility] CLIA [id number] [address] [place] [address] [place] CO2 [Moles/Vol] 29 mmol/L Normal 22-30 [facility] Comment on above: Order Comment: Speci men Type: BLOOD SPECIMEN Ordering Facility: [facility] Address: [address] [place] [address] Performed By: #### 2 4321-2 #### [facility] CLIA [id number] [address] [place] [address] [place] Creatinine [Mass/Vol] 0.97 mg/dL High 0.58-0.96 [facility] Comment on above: Order Comment: Speci men Type: BLOOD SPECIMEN Ordering Facility: [facility] Address: [address] [place] [address] Performed By: #### 2 4321-2 #### [facility] CLIA [id number] [address] [place] [address] [facility] Creatinine and Glomerular filtration rate.predicted panel (S/P/Bld) 69 mL/min/1.73m??? Normal >=60 [facility] Comment on above: Order Comment: Speci men Type: BLOOD SPECIMEN Ordering Facility: [facility] Address: [address] [place] [address] Result Comment: Lucrecia mated Glomerular Filtration Rate (eGFR) is calculated using the 2020 CKD-EPI creatinine equation. This equation utilizes serum creatinine, sex, and age as parameters. The creatinine assay has traceable calibration to isotope dilution-mass spectrometry. Refer to KDIGO guidelines for clinical interpretation. In patients with unstable renal function, e.g. those with acute kidney injury, the eGFR may not accurately reflect actual GFR. Performed By: #### 2 4321-2 #### [facility] CLIA [id number] [address] [place] [address] [place] Glucose [Mass/Vol] 87 mg/dL Normal 74-99 [facility] Comment on above: Order Comment: Candi sosa Type: BLOOD SPECIMEN Ordering Facility: [facility] Address: [address] [place] [address] Result Comment: The [place] Diabetes Association (ADA) provides guidance for cutoff values for fasting glucose and random glucose. The ADA defines fasting as no caloric intake for at least 8 hours. Fasting plasma glucose results between 100 to 125 mg/dL indicate increased risk for diabetes (prediabetes). Fasting plasma glucose results greater than or equal to 126 mg/dL meet the criteria for diagnosis of diabetes. In the absence of unequivocal hyperglycemia, results should be confirmed by repeat testing. In a patient with classic symptoms of hyperglycemia or hyperglycemic crisis, random plasma glucose results greater than or equal to 200 mg/dL meet the criteria for diagnosis of diabetes. Reference: Standards of Medical Care in Diabetes 2016, [place] Diabetes [employer]. Diabetes Care. 2016.39(Suppl 1). Performed By: #### 2 4321-2 #### [facility] CLIA [id number] [address] [place] [address] [place] Potassium [Moles/Vol] 4.7 mmol/L Normal 3.7-5.1 [facility] Comment on above: Order Comment: Candi sosa Type: BLOOD SPECIMEN Ordering Facility: [facility] Address: [address] [place] [address] Performed By: #### 2 4321-2 #### [facility] CLIA [id number] [address] [place] [address] [place] Sodium [Moles/Vol] 145 mmol/L High 136-144 [facility] Comment on above: Order Comment: Candi sosa Type: BLOOD SPECIMEN Ordering Facility: [facility] Address: [address] [place] [address] Performed By: #### 2 4321-2 #### [facility] CLIA [id number] [address] [place] [address] [place] Urea nitrogen [Mass/Vol] 14 mg/dL Normal 7-21 [facility] Comment on above: Order Comment: Speci men Type: BLOOD SPECIMEN Ordering Facility: [facility] Address: [address] [place] [address] Performed By: #### 2 4321-2 #### [facility] CLIA [id number] [address] [place] [id number] [facility] 05-16-2024 [facility] NAN FREY ([id number]) 1970 [facility] Date Time Provider Department 05/16/24 ANGY FRANCIS During your visit today, we recorded the following information about you: Fatoumata Palomares MA 05/16/2024 7:13 AM Signed ----- Message from Katie Vieyra MA sent at 02/14/2024 3:10 PM EDT ----- Kidneys stable. Recheck in 3 months. DEBRA Perry Charlene M, APRN.[facility] 05/16/2024 3:54 PM Signed Addended by: ANGY FRANCIS on: 05/16/2024 03:54 PM Modules accepted: Orders Fatoumata Palomares MA 05/16/2024 5:17 PM Signed Patient is informed Fatoumata Palomares MA Allergies As of Date: 05/16/2024 Noted Allergy Reaction MOBIC (MELOXICAM) 05/19/2016 7 - Swelling Comments: legs Date Reviewed: 05/04/2023 Reviewed by: Martine Pelaez COA - Fully Assessed Reason for Visit: Lab Orders [8768] Primary Visit Diagnosis:Elevated serum creatinine [R79.89] Order(s):BASIC METABOLIC PANEL [SQBMP] Order #: [id number] FUTURE Prescriptions as of 05/16/2024 - multivitamin tablet Take 1 tablet by mouth. - omega-3 fatty acids/fish oil (FISH OIL-OMEGA-3 FATTY ACIDS) 300-1,000 mg cap Take 2 capsules by mouth. - ibuprofen (MOTRIN) 200 mg tablet Take 200 mg by mouth every 6 hours as needed. Problem List As Of Date 05/16/2024 Noted Resolved Regular astigmatism [H52.229] 05/04/2014 Presbyopia [H52.4] 05/04/2014 Hypermetropia [H52.00] 04/29/2015 Anxiety [F41.9] 09/27/2016 Spasm of muscle [M62.838] 09/27/2016 Encounter Status:Closed by FATOUMATA PALOMARES on 05/16/24 Normal [facility] NANCY SCREENING W Akanksha 01-10 [facility] CBC panel Auto (Bld)on 11-06 Erythrocyte distribution width (RBC) [Ratio] 12.2 % 11.5 - 15.0 % [facility] Hematocrit (Bld) [Volume fraction] 40.9 % 36.0 - 46.0 % [facility] Hemoglobin (Bld) [Mass/Vol] 13.6 g/dL 11.5 - 15.5 g/dL [facility] MCH (RBC) [Entitic mass] 29.1 pg 26.0 - 34.0 pg [facility] MCHC (RBC) [Mass/Vol] 33.3 g/dL 30.5 - 36.0 g/dL [facility] MCV (RBC) [Entitic vol] 87.6 fL 80.0 - 100.0 fL [facility] Platelet mean volume (Bld) [Entitic vol] 9.9 fL 9.0 - 12.7 fL [facility] Platelets (Bld) [#/Vol] 253 10*3/uL 150 - 400 k/uL [facility] RBC (Bld) [#/Vol] 4.67 10*6/uL 3.90 - 5.2 0 m/uL [facility] WBC (Bld) [#/Vol] 5.49 10*3/uL 3.70 - 11. 00 k/uL [facility] Comprehensive metabolic 2000 panelon 11-06-2022 Albumin [Mass/Vol] 4.7 g/dL 3.9 - 4.9 g/dL [facility] ALP [Catalytic activity/Vol] 79 U/L 34 - 123 U/L [facility] ALT With P-5'-P [Catalytic activity/Vol] 15 U/L 7 - 38 U/L [facility] Anion gap [Moles/Vol] 10 mmol/L 9 - 18 mmol/L [facility] AST With P-5'-P [Catalytic activity/Vol] 26 U/L 13 - 35 U/L [facility] Bilirubin [Mass/Vol] 0.3 mg/dL 0.2 - 1.3 mg/dL [facility] Calcium [Mass/Vol] 9.8 mg/dL 8.5 - 10.2 mg/dL [facility] Chloride [Moles/Vol] 105 mmol/L 97 - 105 mmol/L [facility] CO2 [Moles/Vol] 27 mmol/L 22 - 30 mmol/L [facility] Creatinine [Mass/Vol] 0.89 mg/dL 0.58 - 0.96 mg/dL [facility] Estimated Glomerular Filtration Rate 78 mL/min/1.73m >=60 mL/min/1.73m [facility] Glucose [Mass/Vol] 99 mg/dL 74 - 99 mg/dL [facility] Potassium [Moles/Vol] 4.2 mmol/L 3.7 - 5.1 mmol/L [facility] Protein [Mass/Vol] 7.1 g/dL 6.3 - 8.0 g/dL [facility] Sodium [Moles/Vol] 142 mmol/L 136 - 144 mmol/L [facility] Urea nitrogen [Mass/Vol] 14 mg/dL 7 - 21 mg/dL [facility] Lipid 1996 panelon 3 Cholesterol [Mass/Vol] 172 mg/dL <200 mg/dL [facility] Cholesterol in HDL [Mass/Vol] 67 mg/dL >39 mg/dL [facility] Cholesterol in LDL [Mass/Vol] 92 mg/dL <100 mg/dL [facility] Cholesterol in LDL/Cholesterol in HDL [Mass ratio] 1.37 {ratio} <2.54 [facility] Cholesterol in VLDL [Mass/Vol] 13 mg/dL <30 mg/dL [facility] Cholesterol non HDL [Mass/Vol] 105 mg/dL <130 mg/dL [facility] Cholesterol.total /Cholesterol in HDL [Mass ratio] 2.57 {ratio} <5.10 [facility] Fasting Time 10 hrs [facility] Triglyceride [Mass/Vol] 66 mg/dL <150 mg/dL [facility] TSH BLDon 11-06-2022 TSH Qn 2.200 m[IU]/L 0.270 - 4.200 mIU/L [facility] XR FOOT LEFT 3+ VIEWS (STAND MISTY)on 08-24-2022 XR FOOT LEFT 3+ VIEWS (STANDARD) Xray 3 views left - There is arthrodesis of the 2nd proximal interphalangeal joint that has occured Dictated by: IAN MORTON on [place] Aug 24, 2022 4:22:36 PM EST Transcribed by: IAN MORTON on [facility] Aug 24, 2022 4:22:36 PM EST Finalized by: IAN MORTON on [facility] Aug 24, 2022 4:22:36 PM EST [facility] Comment on above: Order Comment: Injur y/Trauma or Illness?:Illness/Other How long have you had these symptoms (acute/chronic)?:Acute Reason for exam?:post op History of cancer?:no Surgeries, chemotherapy, or radiation?:no Type of Exam?:Subsequent/Follow-up Additional signs and symptoms?:no XR FOOT LEFT 3+ VIEWS (STAND MISTY)on 06-29-2022 XR FOOT LEFT 3+ VIEWS (STANDARD) Xray 3 view - the 2nd toe proximal phalangeal joint is 60 % fused Dictated by: IAN MORTON on [facility] Jun 29, 2022 4:39:38 PM EDT Transcribed by: IAN MORTON on [facility] Jun 29, 2022 4:39:38 PM EDT Finalized by: IAN MORTON on [facility] Jun 29, 2022 4:39:38 PM EDT Normal [facility] Comment on above: Order Comment: Injur y/Trauma or Illness?:Illness/Other How long have you had these symptoms (acute/chronic)?:Chronic Reason for exam?:post op pain History of cancer?:no Surgeries, chemotherapy, or radiation?:no Type of Exam?:Subsequent/Follow-up Additional signs and symptoms?:no XR FOOT LEFT 3+ VIEWS (STAND MISTY)on 05-18-2022 XR FOOT LEFT 3+ VIEWS (STANDARD) Xray 3 views left - There is partially fused 2nd proximal interphalangeal joint . Dictated by: IAN MORTON on [place] May 18, 2022 4:30:40 PM EDT Transcribed by: IAN MORTON on SunMay 18, 2022 4:30:40 PM EDT Finalized by: IAN MORTON on [place] May 18, 2022 4:30:40 PM EDT [facility] Comment on above: Order Comment: Injur y/Trauma or Illness?:Injury/Trauma How long have you had these symptoms (acute/chronic)?:Acute Reason for exam?:LEFT FOOT PAIN History of cancer?:no Surgeries, chemotherapy, or radiation?:no Type of Exam?:Initial Mechanism of injury?:UNK XR Foot Left 3+ Views (Stand misty)on 05-18-2022 Xray 3 views left - There is partially fused 2nd proximal interphalangeal joint . [employer] [facility] Radiology Study observation (narrative) [facility] XR FOOT LEFT 3+ VIEWS (STAND MISTY)on 04-20-2022 XR FOOT LEFT 3+ VIEWS (STANDARD) Xray 3 views - The 2nd PIPJ fusion is partial healed Dictated by: IAN MORTON on SunApr 20, 2022 4:13:45 PM EDT Transcribed by: IAN MORTON on SunApr 20, 2022 4:13:45 PM EDT Finalized by: IAN MORTON on [place] Apr 20, 2022 4:13:45 PM EDT [facility] Comment on above: Order Comment: Injur y/Trauma or Illness?:Illness/Other How long have you had these symptoms (acute/chronic)?:Chronic Reason for exam?:left foot pain History of cancer?:no Surgeries, chemotherapy, or radiation?:no Type of Exam?:Subsequent/Follow-up Additional signs and symptoms?:unk XR Foot Left 3+ Views (Stand misty)on 04-20-2022 Xray 3 views - The 2 nd PIPJ fusion is partial healed [employer] [facility] Radiology Study observation (narrative) [facility] XR FOOT LEFT 3+ VIEWS (STAND MISTY)on 03-23-2022 XR FOOT LEFT 3+ VIEWS (STANDARD) X-rays 3 views left foot: There is a fusion occurring at the second proximal interphalangeal joint with pin fixation. Dictated by: IAN MORTON on SunMar 23, 2022 4:54:33 PM EDT Transcribed by: IAN MORTON on SunMar 23, 2022 4:54:33 PM EDT Finalized by: IAN MORTON on SunMar 23, 2022 4:54:33 PM EDT [facility] Comment on above: Order Comment: Injur y/Trauma or Illness?:Illness/Other How long have you had these symptoms (acute/chronic)?:Acute Reason for exam?:post op left foot History of cancer?:no Surgeries, chemotherapy, or radiation?:no Type of Exam?:Subsequent/Follow-up Additional signs and symptoms?:post op pain XR Foot Left 3+ Views (Stand misty)on 03-23-2022 X-rays 3 views left foot: There is a fusion occurring at the second proximal interphalangeal joint with pin fixation. [employer] [facility] Radiology Study observation (narrative) [facility] XR FOOT LEFT 3+ VIEWS (STAND MISTY)on 03-09-2022 XR FOOT LEFT 3+ VIEWS (STANDARD) X-rays 3 views left foot: There is a second proximal interphalangeal joint fusion with pin fixation healing. Dictated by: IAN MORTON on SunMar 09, 2022 5:30:15 PM EDT Transcribed by: IAN MORTON on SunMar 09, 2022 5:30:15 PM EDT Finalized by: IAN MORTON on [place] Mar 09, 2022 5:30:15 PM EDT [facility] Comment on above: Order Comment: Injur y/Trauma or Illness?:Illness/Other How long have you had these symptoms (acute/chronic)?:Chronic Reason for exam?:POST OP LEFT FOOT History of cancer?:no Surgeries, chemotherapy, or radiation?:no Type of Exam?:Subsequent/Follow-up Additional signs and symptoms?:UNK XR Foot Left 3+ Views (Stand misty)on 03-09-2022 X-rays 3 views left foot: There is a second proximal interphalangeal joint fusion with pin fixation healing. [employer] [facility] Radiology Study observation (narrative) [facility] XR FOOT LEFT 3+ VIEWS (STAND MISTY)on 03-02-2022 XR FOOT LEFT 3+ VIEWS (STANDARD) Xray 3 views left foot- there has been a 2nd toe arthrodesis with k wire fixation Dictated by: IAN MORTON on SunMar 02, 2022 11:40:09 AM EDT Transcribed by: IAN MORTON on SunMar 02, 2022 11:40:09 AM EDT Finalized by: IAN MORTON on SunMar 02, 2022 11:40:09 AM EDT Normal [facility] Comment on above: Order Comment: Injur y/Trauma or Illness?:Illness/Other How long have you had these symptoms (acute/chronic)?:Chronic Reason for exam?:post op left foot History of cancer?:no Surgeries, chemotherapy, or radiation?:no Type of Exam?:Subsequent/Follow-up Additional signs and symptoms?:unk XR Foot Left 3+ Views (Stand misty)on 03-02-2022 Xray 3 views left fo ot- there has been a 2nd toe arthrodesis with k wire fixation [facility] Radiology Study observation (narrative) [facility] XR OR FOOT LEFT 2 VIEWSon XR OR FOOT LEFT 2 VIEWS EXAMINATION: XR OR FOOT LEFT 2 VIEWS HISTORY: ORDERING SYSTEM PROVIDED HISTORY: Repair hammertoe 2nd toe left foot, TECHNOLOGIST PROVIDED HISTORY: Illness/Other Reason for exam: Repair hammertoe 2nd toe left foot Encounter Type: Initial Additional signs and symptoms: Fluoro dose in mGy: .03 ORDERING SYSTEM PROVIDED DIAGNOSIS CODES: Z01.818 Preop testing M20.42 Hammertoe of left foot COMPARISON: Left foot radiographs 11/24/2021 TECHNIQUE: Fluoro Dose Ka,r mGy: Fluoro dose in Ka,r mGy: 0.03 2 images were submitted. FINDINGS: Operative fluoroscopy/radiography was utilized during arthrodesis of left foot 2nd hammertoe with K-wire fixation. 2 images were submitted. Please see operative report for full details. IMPRESSION: Operative fluoroscopy/radiography was utilized during arthrodesis of left foot 2nd hammertoe with K-wire fixation. 2 images were submitted. Please see operative report for full details. Workstation ID: [id number] Dictated by: TORI WILSON on SunFeb 22, 2022 1:59:51 PM EDT Transcribed by: TOIR WILSON on SunFeb 22, 2022 1:59:51 PM EDT Finalized by: TORI WILSON on SunFeb 22, 2022 1:59:51 PM EDT Normal [facility] Comment on above: Order Comment: Injur y/Trauma or Illness?:Illness/Other How long have you had these symptoms (acute/chronic)?:Acute Reason for exam?:Repair hammertoe 2nd toe left foot Type of Exam?:Initial Additional signs and symptoms?: Fluoro time in minutes:.03 .03 minute or 2 seconds Fluoro dose in mGy?:.03 .031 mGy/min CBC panel Auto (Bld)on 12-21 Erythrocyte distribution width (RBC) [Ratio] 12.5 % 11.5 - 15.0 % [facility] Hematocrit (Bld) [Volume fraction] 41.0 % 36.0 - 46.0 % [facility] Hemoglobin (Bld) [Mass/Vol] 13.6 g/dL 11.5 - 15.5 g/dL [facility] MCH (RBC) [Entitic mass] 29.3 pg 26.0 - 34.0 pg [facility] MCHC (RBC) [Mass/Vol] 33.2 g/dL 30.5 - 36.0 g/dL [facility] MCV (RBC) [Entitic vol] 88.4 fL 80.0 - 100.0 fL [facility] Platelet mean volume (Bld) [Entitic vol] 9.6 fL 9.0 - 12.7 fL [facility] Platelets (Bld) [#/Vol] 250 10*3/uL 150 - 400 k/uL [facility] RBC (Bld) [#/Vol] 4.64 10*6/uL 3.90 - 5.2 0 m/uL [facility] WBC (Bld) [#/Vol] 6.55 10*3/uL 3.70 - 11. 00 k/uL [facility] Comprehensive metabolic 2000 panelon 12-21-2021 Albumin [Mass/Vol] 4.6 g/dL 3.9 - 4.9 g/dL [facility] ALP [Catalytic activity/Vol] 79 U/L 34 - 123 U/L [facility] ALT With P-5'-P [Catalytic activity/Vol] 20 U/L 7 - 38 U/L [facility] Anion gap [Moles/Vol] 9 mmol/L 9 - 18 mmol/L [facility] AST With P-5'-P [Catalytic activity/Vol] 26 U/L 13 - 35 U/L [facility] Bilirubin [Mass/Vol] 0.5 mg/dL 0.2 - 1.3 mg/dL [facility] Calcium [Mass/Vol] 9.8 mg/dL 8.5 - 10.2 mg/dL [facility] Chloride [Moles/Vol] 104 mmol/L 97 - 105 mmol/L [facility] CO2 [Moles/Vol] 28 mmol/L 22 - 30 mmol/L [facility] Creatinine [Mass/Vol] 0.89 mg/dL 0.58 - 0.96 mg/dL [facility] Estimated Glomerular Filtration Rate 78 mL/min/1.73m >=60 mL/min/1.73m [facility] Glucose [Mass/Vol] 94 mg/dL 74 - 99 mg/dL [facility] Potassium [Moles/Vol] 4.5 mmol/L 3.7 - 5.1 mmol/L [facility] Protein [Mass/Vol] 7.2 g/dL 6.3 - 8.0 g/dL [facility] Sodium [Moles/Vol] 141 mmol/L 136 - 144 mmol/L [facility] Urea nitrogen [Mass/Vol] 12 mg/dL 7 - 21 mg/dL [facility] LIPID PANEL BASICon 12-22-19 Cholesterol [Mass/Vol] 178 mg/dL <200 mg/dL [facility] Cholesterol in HDL [Mass/Vol] 63 mg/dL >39 mg/dL [facility] Cholesterol in LDL [Mass/Vol] 101 mg/dL High <100 mg/dL [facility] Cholesterol in LDL/Cholesterol in HDL [Mass ratio] 1.60 {ratio} <2.54 [facility] Cholesterol in VLDL [Mass/Vol] 14 mg/dL <30 mg/dL [facility] Cholesterol non HDL [Mass/Vol] 115 mg/dL <130 mg/dL [facility] Cholesterol.total /Cholesterol in HDL [Mass ratio] 2.83 {ratio} <5.10 [facility] Fasting Time 12 hrs [facility] Triglyceride [Mass/Vol] 71 mg/dL <150 mg/dL [facility] TSH BLDon 12-21-2021 TSH Qn 2.420 m[IU]/L 0.270 - 4.200 mIU/L [facility] XR FOOT LEFT 3+ VIEWS (STAND MISTY)on 11-24-2021 XR FOOT LEFT 3+ VIEWS (STANDARD) X-rays 3 views left foot: Patient is got a contracted second metatarsal phalangeal joint and proximal interphalangeal joint consistent with hammertoe deformity. No signs of fracture or tumor or arthritis Dictated by: IAN MORTON on [facility] Nov 24, 2021 5:08:36 PM EST Transcribed by: IAN MORTON on [facility] Nov 24, 2021 5:08:36 PM EST Finalized by: IAN MORTON on [facility] Nov 24, 2021 5:08:36 PM EST Normal [facility] Comment on above: Order Comment: Injur y/Trauma or Illness?:Illness/Other How long have you had these symptoms (acute/chronic)?:Chronic Reason for exam?:pain History of cancer?:no Surgeries, chemotherapy, or radiation?:no Type of Exam?:Initial Additional signs and symptoms?:no XR FOOT 3V AP/LAT/OBL RTon 0 12-13-2020 XR FOOT 3V AP/LAT/OBL RT Final Report DATE OF EXAM: Dec 13 2020 4:47PM LDX 5337 - XR FOOT 3V AP/LAT/OBL RT / PROCEDURE REASON: Right foot pain Physician Interpretation EXAM TITLE: XR FOOT 3V AP/LAT/OBL RT DATE: 12/14/2020 8:41 AM INDICATION: Right foot pain secondary to injury COMPARISON: None. FINDINGS: There is no fracture or dislocation. Joint spaces are maintained and the soft tissues appear normal. IMPRESSION: Within normal limits. Risk Assessor: PSCB Transcribe Date/Time: Dec 14 2020 8:41A Dictated by : FAN JONES MD This examination was interpreted and the report reviewed and electronically signed by: FAN JONES MD on Dec 14 2020 8:43AM EST Normal [facility] NANCY SCREENINGon 07-06-2020 [facility] SCREENING Final Report SEE BOTTOM OF REPORT FOR ADDENDED TEXT DATE OF EXAM: Jul 06 2020 4:17PM LDW 0581 - [facility] SCREENING / PROCEDURE REASON: Encounter for screening mammogram for malignant neoplasm of breast Physician Interpretation THIS REPORT HAS BEEN AMENDED. #[id number] - [facility] SCREENING BILATERAL DIGITAL SCREENING MAMMOGRAM WITH CAD: 07/06/2020 HISTORY: /Screening Mammogram-patient reports no symptoms. RESULT: TECHNIQUE: The study was acquired using full field digital technology and interpreted from soft copy. Current study was also evaluated with a Computer Aided Detection (CAD). No prior exams were available for comparison. There are scattered fibroglandular elements in both breasts. There is an asymmetry in the left breast upper outer aspect anterior depth. No other significant masses, calcifications, or other findings are seen in either breast. IMPRESSION: INCOMPLETE: NEEDS ADDITIONAL IMAGING EVALUATION The asymmetry in the left breast is indeterminate. Additional views and a comparison to prior exams are recommended. SUMMARY: If the patient's prior breast imaging studies are obtained for comparison, an addendum will be made to the above report with updated BIRADS. Rosie damon/jorge:07/07/2020 08:36:53 Full Stack Engineer(s): Uli Boggs (Cathi)(M), [facility] letter sent: Comparison Films Needed Mammogram BI-RADS: 0 Incomplete: needs additional imaging evaluation If this report indicates you need additional imaging, and it has NOT yet been performed, please call , to schedule. We sincerely thank you for choosing the [facility] for your breast imaging needs. Multiple national specialty organizations have released breast cancer screening guidelines for women at average risk for developing breast cancer - guidelines that are based on both evidence and opinion, yet differ on when to start and how often to screen for breast cancer. With representation from Breast Imaging, Internal Medicine, Women's Health, Family Medicine, and Medical/Surgical Oncology, the [facility] has carefully reviewed the data and reached the following consensus: 1) All women should engage in shared decision-making with their providers to decide when to start and how often to screen; 2) All women should have the opportunity to start screening mammography at age 40; 3) For women ages 45-55, we recommend annual screening mammograms; 4) For women ages 55 and over, we support both the transition from an annual to a biennial interval if this aligns more with patient's values and preferences, or continuation with annual screening; 5) All women should discuss with their providers when to stop screening mammograms. AMENDMENT: 07/13/2020 Mary Shepardson, M.D. Comparison is made to the previous mammogram(s) dated 07/03/19 which are now available. No significant interval change is seen. Routine annual screening mammography is recommended. The patient does not require additional imaging. Amended BI-RADS: 1 Negative letter sent: Normal - Films Compared Risk Assessor: Jorge Transcribe Date/Time: Jul 06 2020 3:56P Dictated by : ROSIE MAYA MD This examination was interpreted and the report reviewed and electronically signed by: ROSIE MAYA MD on Jul 07 2020 8:36AM EST This document has been addended by: ROSIE MAYA MD on Jul 13 2020 9:28AM EST Normal [facility] US KIDNEY/BLADDERon 06-09-20 US KIDNEY/BLADDER Final Report DATE OF EXAM: Jun 09 2020 4:49PM LDU 1055 - US KIDNEY/BLADDER / PROCEDURE REASON: Abnormal x-ray Physician Interpretation EXAMINATION: RENAL ULTRASOUND CLINICAL HISTORY: Lumbar spinal radiograph indicated intra-abdominal calcifications concerning for renal calculi. TECHNIQUE: Sonography of the kidneys and urinary bladder was performed. Images were obtained and stored in a permanent archive. MQ: [id number] COMPARISON: None RESULT: Right Kidney: -Renal length: 11.1 cm -Parenchyma: Normal parenchymal echogenicity. Normal parenchymal thickness. The average thickness is 1.9 cm. -Collecting system: No hydronephrosis. -Calculus: No echogenic, shadowing calculus. -Lesion: None. Left Kidney: -Renal length: 11.1 cm -Parenchyma: Normal parenchymal echogenicity. Normal parenchymal thickness. The average thickness is 1.5 cm. -Collecting system: No hydronephrosis. -Calculus: No echogenic, shadowing calculus. -Lesion: None. Bladder: Normal sonographic appearance. The prevoid bladder volume is 236 cc's. Postvoid residual is 53 cc. IMPRESSION: Mild post void residual within the bladder. No sonographic evidence for hydronephrosis or intrarenal calculus. Risk Assessor: JIM Transcribe Date/Time: Jun 10 2020 7:09A Dictated by : FAN JONES MD This examination was interpreted and the report reviewed and electronically signed by: FAN JONES MD on Jun 10 2020 7:10AM EST Normal [facility] SPINE, LUMBOSACRAL CMPLT(FREDERICK WOLFE)on 04-21-2020 SPINE, LUMBOSACRAL CMPLT(BENDING) Patient Name: NAN FREY STUDY: SPINE, LUMBOSACRAL CMPLT(BENDING); ; 04/21/2020 11:14 am INDICATION: Spondylosis without myelopathy or radiculopathy, lumbosacral region. COMPARISON: None. ACCESSION NUMBER(S): [id number] ORDERING CLINICIAN: CASTILLO STAFFORD FINDINGS: 5 images of lumbar spine including flexion and extension lateral views show minimal grade 1 retrolisthesis of L5 on S1, measuring about 5 mm on flexion and extension lateral views. There is moderate narrowing of the L4-5 and L5-S1 intervertebral disc space. There are no acute fracture or subluxation. There is 8 to 9 mm calcific density in the right paraspinal area at the level of the L4, suggesting calcified lymph node. There is a large calcific density posterior to the spinous process of the L3 and L4. There are few surgical clips in the right upper abdomen. IMPRESSION: Minimal grade 1 retrolisthesis of L5 on S1, measuring 5 mm on flexion and extension lateral views. Moderate degenerative disc disease at L4-5 and L5-S1. 8-9 mm right paraspinal calcified lymph node. However, right ureteral calculus cannot be completely ruled out. Recommend clinical correlation. Electronically signed by: AJNELICA ENRIQUEZ MD Normal [facility] HEPATITIS B CORE AB;IGMon HEPATITIS B CORE AB,IGM Canceled Normal [facility] Comment on above: Order Comment: TEST HEPATITIS B CORE AB;IGM WAS CANCELLED, 11/07/2019 09:57 DUPLICATE ORDER. Result Comment: Jessica ents receiving more than 5 mg/day of biotin may have interference in test results. A sample should be taken no sooner than eight hours after previous dose. Contact the testing laboratory for additional information. Performed By: #### H [facility] #### [facility] [address] [address] HEPATITIS B CORE AB,IGM NON-REACTIVE Normal NONREACTIVE [facility] Comment on above: Result Comment: Jessica ents receiving more than 5 mg/day of biotin may have interference in test results. A sample should be taken no sooner than eight hours after previous dose. Contact the testing laboratory for additional information. Performed By: #### H BCRM #### [facility] [address] [place] [id number] HEPATITIS B SURF ABon 2019 HEP B SURF AB Canceled [facility] Comment on above: Order Comment: TEST HEPATITIS B SURF AB WAS CANCELLED, 11/07/2019 09:57 DUPLICATE ORDER. Result Comment: INTE RPRETIVE CRITERIA: <10 mIU/mL....NONREACTIVE >=10 mIU/mL...REACTIVE . Patients receiving more than 5 mg/day of biotin may have interference in test results. A sample should be taken no sooner than eight hours after previous dose. Contact the testing laboratory for additional information. Performed By: #### H BAB3 #### [facility] [address] [place] [address] HEP B SURF AB 7.7 mIU/mL Normal <10 [facility] Comment on above: Result Comment: INTE RPRETIVE CRITERIA: <10 mIU/mL....NONREACTIVE >=10 mIU/mL...REACTIVE . Patients receiving more than 5 mg/day of biotin may have interference in test results. A sample should be taken no sooner than eight hours after previous dose. Contact the testing laboratory for additional information. Performed By: #### H BAB3 #### [facility] [address] [place] [id number] HEPATITIS B SURFACE AGon HEP.B SURFACE AG Canceled [facility] Comment on above: Order Comment: TEST HEPATITIS B SURFACE AG WAS CANCELLED, 11/07/2019 09:57 DUPLICATE ORDER. Result Comment: Jessica ents receiving more than 5 mg/day of biotin may have interference in test results. A sample should be taken no sooner than eight hours after previous dose. Contact the testing laboratory for additional information. Performed By: #### H BSAG #### [facility] [address] [place] [id number] HEP.B SURFACE AG NONREACTIVE Normal NONREACTIVE [facility] Comment on above: Result Comment: Jessica ents receiving more than 5 mg/day of biotin may have interference in test results. A sample should be taken no sooner than eight hours after previous dose. Contact the testing laboratory for additional information. Performed By: #### H BSAG #### [facility] [address] [place] [address] HEPATITIS C ABon 11-07-2019 HEPATITIS C AB Canceled [facility] Comment on above: Order Comment: TEST HEPATITIS C AB WAS CANCELLED, 11/07/2019 09:57 DUPLICATE ORDER. Result Comment: Jessica ents receiving more than 5 mg/day of biotin may have interference in test results. A sample should be taken no sooner than eight hours after previous dose. Contact the testing laboratory for additional information. Performed By: #### H CVAB #### [facility] [address] [place], [place] HEPATITIS C AB NON-REACTIVE Normal NONREACTIVE [facility] Comment on above: Result Comment: Jessica ents receiving more than 5 mg/day of biotin may have interference in test results. A sample should be taken no sooner than eight hours after previous dose. Contact the testing laboratory for additional information. Performed By: #### H BAB3 #### [facility] [address] [place] [id number] HEPATITIS B SURF ABon 2019 Lab Specimen Source [facility] Comment on above: Performed By: #### H BAB3 #### [facility] [address] [place] [address] Performed By: #### H BSAG #### [facility] [address] [place], [place] Performed By: #### H BCRM #### [facility] [address] [place] [id number] CBC AND DIFFERENTIALon 11-03 Basophils (Bld) [#/Vol] 0.00 10*3/uL Normal 0.00 - 0.10 [facility] Comment on above: Performed By: #### H BAB3 #### [facility] [address] [place] [id number] Basophils/100 WBC (Bld) 0.7 % Normal 0.0 - 2.0 [facility] Comment on above: Performed By: #### H BAB3 #### [facility] [address] [place] [address] Eosinophils (Bld) [#/Vol] 0.00 10*3/uL Normal 0.00 - 0.70 [facility] Comment on above: Performed By: #### H BAB3 #### [facility] [address] [place] [address] Eosinophils/100 WBC (Bld) 0.9 % Normal 0.0 - 6.0 [facility] Comment on above: Performed By: #### H BAB3 #### [facility] [address] [place] [address] Erythrocyte distribution width (RBC) [Ratio] 12.8 % Normal 11.5 - 14.5 [facility] Comment on above: Performed By: #### H BAB3 #### [facility] [address] [place] [address] Hematocrit (Bld) [Volume fraction] 40.0 % Normal 36.0 - 46.0 [facility] Comment on above: Performed By: #### H BAB3 #### [facility] [address] [place] [address] Hemoglobin (Bld) [Mass/Vol] 13.6 g/dL Normal 12.0 - 16.0 [facility] Comment on above: Performed By: #### H BAB3 #### [facility] [address] [place] [address] Lymphocytes (Bld) [#/Vol] 1.20 10*3/uL Normal 1.20 - 4.80 [facility] Comment on above: Performed By: #### H BAB3 #### [facility] [address] [place] [address] Lymphocytes/100 WBC (Bld) 26.3 % Normal 13.0 - 44.0 [facility] Comment on above: Performed By: #### H BAB3 #### [facility] [address] [place] [address] MCHC (RBC) [Mass/Vol] 34.1 g/dL Normal 32.0 - 36.0 [facility] Comment on above: Performed By: #### H BAB3 #### [facility] [address] [place] [address] MCV (RBC) [Entitic vol] 88 fL Normal 80 - 100 [facility] Comment on above: Performed By: #### H BAB3 #### [facility] [address] [place] [address] Monocytes (Bld) [#/Vol] 0.20 10*3/uL Normal 0.10 - 1.00 [facility] Comment on above: Performed By: #### H BAB3 #### [facility] [address] [place] [address] Monocytes/100 WBC (Bld) 4.5 % Normal 2.0 - 10.0 [facility] Comment on above: Performed By: #### H BAB3 #### [facility] [address] [place] [address] Neutrophils (Bld) [#/Vol] 3.00 10*3/uL Normal 1.20 - 7.70 [facility] Comment on above: Performed By: #### H BAB3 #### [facility] [address] [place] [address] Neutrophils/100 WBC (Bld) 67.6 % Normal 40.0 - 80.0 [facility] Comment on above: Performed By: #### H BAB3 #### [facility] [address] [place] [address] Platelets (Bld) [#/Vol] 230 10*3/uL Normal 150 - 450 [facility] Comment on above: Performed By: #### H BAB3 #### [facility] [address] [place] [address] RBC (Bld) [#/Vol] 4.53 x10E12/L Normal 4.00 - 5.20 [facility] Comment on above: Performed By: #### H BAB3 #### [facility] [address] [place] [address] WBC (Bld) [#/Vol] 4.5 10*3/uL Normal 4.4 - 11.3 [facility] Comment on above: Performed By: #### H BAB3 #### [facility] [address] [place] [address] COMPREHENSIVE PANEL 2019 Albumin [Mass/Vol] 4.4 g/dL Normal 3.4 - 5.0 [facility] Comment on above: Performed By: #### H BAB3 #### [facility] [address] [place] [address] ALP [Catalytic activity/Vol] 65 U/L Normal 33 - 110 [facility] Comment on above: Performed By: #### H BAB3 #### [facility] [address] [place] [address] ALT [Catalytic activity/Vol] 18 U/L Normal 7 - 45 [facility] Comment on above: Result Comment: Jessica ents treated with Sulfasalazine may generate falsely decreased results for ALT. Performed By: #### H BAB3 #### [facility] [address] [place] [address] Anion gap [Moles/Vol] 11 mmol/L Normal 10 - 20 [facility] Comment on above: Performed By: #### H BAB3 #### [facility] [address] [place] [address] AST [Catalytic activity/Vol] 23 U/L Normal 9 - 39 [facility] Comment on above: Performed By: #### H BAB3 #### [facility] [address] [place] [address] Bilirubin [Mass/Vol] 0.5 mg/dL Normal 0.0 - 1.2 [facility] Comment on above: Performed By: #### H BAB3 #### [facility] [address] [place] [address] Calcium [Mass/Vol] 9.3 mg/dL Normal 8.6 - 10.3 [facility] Comment on above: Performed By: #### H BAB3 #### [facility] [address] [place] [address] Chloride [Moles/Vol] 106 mmol/L Normal 98 - 107 [facility] Comment on above: Performed By: #### H BAB3 #### [facility] [address] [place] [address] Creatinine [Mass/Vol] 0.92 mg/dL Normal 0.50 - 1.05 [facility] Comment on above: Performed By: #### H BAB3 #### [facility] [address] [place] [address] GFR- AM. >60 Normal >60 [facility] Comment on above: Result Comment: CALC ULATIONS OF ESTIMATED GFR ARE PERFORMED USING THE MDRD STUDY EQUATION FOR THE IDMS-TRACEABLE CREATININE METHODS. CLIN CHEM 2007;53:766-72 Performed By: #### H BAB3 #### [place] [address] [place] [address] GFR-NON AM. >60 Normal >60 [facility] Comment on above: Performed By: #### H BAB3 #### [place] [address] [place] [address] Glucose [Mass/Vol] 88 mg/dL Normal 74 - 99 [facility] Comment on above: Performed By: #### H BAB3 #### [facility] [address] [place] [address] HCO3 (Bld) [Moles/Vol] 27 mmol/L Normal 21 - 32 [facility] Comment on above: Performed By: #### H BAB3 #### [facility] [address] [place] [address] Potassium [Moles/Vol] 4.0 mmol/L Normal 3.5 - 5.3 [facility] Comment on above: Performed By: #### H BAB3 #### [facility] [address] [place] [address] Protein [Mass/Vol] 6.8 g/dL Normal 6.4 - 8.2 [facility] Comment on above: Performed By: #### H BAB3 #### [facility] [address] [place] [address] Sodium [Moles/Vol] 140 mmol/L Normal 136 - 145 [facility] Comment on above: Performed By: #### H BAB3 #### [facility] [address] [place] [address] Urea nitrogen [Mass/Vol] 12 mg/dL Normal 6 - 23 [facility] Comment on above: Performed By: #### H BAB3 #### [facility] [address] [place] [id number] HEPATITIS C ABon 11-03-2019 Lab Specimen Source Normal [facility] Comment on above: Order Comment: TEST HEPATITIS C AB WAS CANCELLED, 11/07/2019 09:57 DUPLICATE ORDER. Performed By: #### H CVAB #### [facility] [address] [place] [address] Order Comment: TEST HEPATITIS B SURFACE AG WAS CANCELLED, 11/07/2019 09:57 DUPLICATE ORDER. Performed By: #### H BSAG #### [facility] [address] [place] [address] Order Comment: TEST HEPATITIS B CORE AB;IGM WAS CANCELLED, 11/07/2019 09:57 DUPLICATE ORDER. Performed By: #### H BCRM #### [facility] [address] [place] [address] Order Comment: TEST HEPATITIS B SURF AB WAS CANCELLED, 11/07/2019 09:57 DUPLICATE ORDER. Performed By: #### H BAB3 #### [facility] [address] [place] [id number] TOTAL PROTEIN, URINE SPOTon 11-03-2019 CREATININE,URINE 27.0 mg/dL Normal 20.0 - 320.0 [facility] Comment on above: Performed By: #### T PS2 #### [address] [address] T. PROTEIN/CREAT RATIO SEE COMMENT Normal 0.00 - 0.17 [facility] Comment on above: Result Comment: One or more analytes used in this calculation is outside of the analytical measurement range. Calculation cannot be performed. Performed By: #### T PS2 #### [address] [address] TOTAL PROT,URINE SPOT <4 Low 5 - 24 [facility] Comment on above: Performed By: #### T PS2 #### [address] [address] UA MICROSCOPICon 11-03-2019 BACTERIA 1+ /HPF Abnormal [facility] Comment on above: Performed By: #### U AMIC #### [place] [address] RBC 1 /HPF Abnormal 0-5 [facility] Comment on above: Performed By: #### U AMIC #### [place] [address] SQUAMOUS EPITH. CELLS 4 /HPF Normal [facility] Comment on above: Performed By: #### U AMIC #### [place] [address] WBC 4 /HPF Abnormal 0-5 [facility] Comment on above: Performed By: #### U AMIC #### [place] [address] URINALYSISon 11-03-2019 Appearance (U) CLEAR Normal CLEAR [facility] Comment on above: Performed By: #### U A #### [place] [address] Bilirubin (U) [Mass/Vol] Negative Normal NEGATIVE [facility] Comment on above: Performed By: #### U A #### [place] [address] BLOOD SMALL(1+) Abnormal NEGATIVE [facility] Comment on above: Performed By: #### U A #### [place] [address] Color (U) Straw Normal STRAW,YELLOW [facility] Comment on above: Performed By: #### U A #### [place] [address] Glucose [Mass/Vol] Negative Normal NEGATIVE [facility] Comment on above: Performed By: #### U A #### [place] [address] Ketones Ql (U) Negative Normal NEGATIVE [facility] Comment on above: Performed By: #### U A #### [place] [address] Leukocyte esterase Test strip Ql (U) Negative Normal NEGATIVE [facility] Comment on above: Performed By: #### U A #### [place] [address] Nitrite Ql (U) Negative Normal NEGATIVE [facility] Comment on above: Performed By: #### U A #### [address] [address] pH (Bld) 6.0 Normal 5.0 - 8.0 [facility] Comment on above: Performed By: #### U A #### [address] [address] Protein (U) [Mass/Vol] Negative Normal NEGATIVE [facility] Comment on above: Performed By: #### U A #### [address] [address] Specific gravity (U) [Rel density] 1.006 Normal 1.005 - 1.035 [facility] Comment on above: Performed By: #### U A #### [address] [address] Urobilinogen Qn (U) <2.0 Normal 0.0 - 1.9 [facility] Comment on above: Performed By: #### U A #### [address] [address] Initial Visit (Orthopaedic S urgery)on 10-08-2019 Initial Visit (Orthopaedic Surgery) Chief Complaint PT HERE FOR INITIAL VISIT OF LEFT SHOULDER PAIN. STATES HAVING PAIN FROM NECK RADIATING TO SHOULDER AND DOWN TO ELBOW. FEELS LIKE A TOOTH ACHE AND IT'S TENDER. GETTING MASSAGES AND USING CHIROPRACTOR. ROM DECREASED. HAD CORTISONE INJECTION FROM DR. GREEN IN 2017. HAS SOME WEAKNESS CLEMENS SHE TRIES TO LIFT THINGS. XRAYS BEFORE. History of Present Illness Patient is here today for evaluation of her left shoulder pain. 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 She states she's been having neck/shoulder pain since about 2009. She's had a lot of workup on the neck to include MRI which did show herniated disks but was not instructed that any surgical intervention was warranted at this time. She has done physical therapy for the neck along with massages and chiropractic treatments. She is seen in painting trades worker for the neck. Over the past year she feels as though the pain is increasing more and her left shoulder located to the anterior posterior lateral and around the clavicle. There is a sensation of weakness with radiation towards the neck pains over activities numbness and tingling she has not done any formal therapy focused on the shoulder she did have an injection about a year ago with minimal relief. Review of Systems Constitutional: no fever, no chills, not feeling tired, no recent weight gain and no recent weight loss. ENT: no nosebleeds. Cardiovascular: no chest pain. Respiratory: no shortness of breath and no cough. Gastrointestinal: no abdominal pain, no nausea, no diarrhea and no vomiting. Musculoskeletal: no arthralgias. Integumentary: no rashes and no skin wound. Neurological: no headache. Psychiatric: no sleep disturbances and no depression. Endocrine: no muscle weakness and no muscle cramps. Hematologic/Lymphatic: no swollen glands and no tendency for easy bruising. Active Problems Abnormal MRI (793.99) (R93.89) Herniated cervical disc (722.0) (M50.20) Shoulder pain, left (719.41) (M25.512) Past Medical History History of BPPV (benign paroxysmal positional vertigo) (386.11) (H81.10) History of Cervical radiculopathy, chronic (723.4) (M54.12) History of Chronic neck pain (723.1,338.29) (M54.2,G89.29) History of Elevated LFTs (790.6) (R94.5) Surgical History History of Section History of Cholecystectomy History of Hysterectomy History of Tonsillectomy Family History Family history of hypertension (V17.49) (Z82.49) Family history of hypertension (V17.49) (Z82.49) Family history of malignant neoplasm (V16.9) (Z80.9) Social History Former smoker (V15.82) (Z87.891) quit in 2007 No advance directives (V49.89) (Z78.9) Allergies Mobic Allergy; Edema; Updated By: Nazanin Peña; 10/07/2019 4:30:38 PM Current Meds Fish Oil OIL; Therapy: (Recorded:07Oct2019) to Recorded Dispense: 0 Days ; #: Sufficient; Refill: 0; YOLANDA = N; Record; Last Updated By: Nazanin Peña; 10/07/2019 4:30:38 PM Ibuprofen 200 MG Oral Tablet; TAKE 1 TABLET 3-4 TIMES DAILY NEEDED; Therapy: (Recorded:08Oct2019) to Recorded Dispense: 0 Days ; #: Sufficient Tablet; Refill: 0; YOLANDA = N; Record; Last Updated By: Laney Fox; 10/08/2019 8:31:11 AM Magnesium Oxide TABS; Therapy: (Recorded:07Oct2019) to Recorded Dispense: 0 Days ; #: Sufficient Tablet; Refill: 0; YOLANDA = N; Record; Last Updated By: Nazanin Peña; 10/07/2019 4:30:38 PM Multi-Vitamin Daily Oral Tablet; TAKE 1 TABLET DAILY; Therapy: (Recorded:07Oct2019) to Recorded Dispense: 0 Days ; #: Sufficient Tablet; Refill: 0; YOLANDA = N; Record; Last Updated By: Nazanin Peña; 10/07/2019 4:30:38 PM Vitals Vital Signs Recorded: 08Oct2019 08:25AM [id number] [id number] Height5 ft 8 in Ahoqxh422 lb BMI Cuwcyiqjzg69.84 BSA Calculated2.11 Physical Exam c spine evaluation shows negative point tenderness on the spine, mild local C-spine pain with flexion extension rotation to the right and left. Positive Spurling to the left. Full range of motion of the shoulder in forward flexion negative impingement signs positive tenderness at the AC joint positive bicipital tenderness negative speed negative crank tenderness along the trapezius and surrounding the posterior scapula. Rotator cuff strength is 5 minus/5 in supraspinatus external rotation and internal rotation is 5/5 right upper extremity shows full range of motion nontender at the AC joint rotator cuff strength is 5/5 supraspinatus external and internal rotation Results/Data Xray Shoulder Complete Min 2 [id number] 12:00AMFatoumata Jackson [Oct 08, 2019 8:19AM Fatoumata Jackson] Reason: Unspecified for Xray Shoulder Complete Min 2 Views Test NameResultFlagReference Xray Shoulder Complete Min 2 Views Please click on the link to view the study images X-ray performed today shows no obvious signs of fractures or dislocations Diagnoses/Problems Shoulder pain, left (719.41) (M25.512) Orders Shoulder pain, left Xray Shoulder Complete Min 2 Views; Status:Resulted - Preliminary,Retrospective Authorization; Done: 08Oct2019 12:00AM Due:[id number];Ordered; For:Shoulder pain, left; Ordered By:Fatoumata Jackson; Reason: Unspecified for Xray Shoulder Complete Min 2 Views Laterality : Left Radiologist to Determine Optimal Study : Y What are the patient's signs and symptoms? : shoulder pain Provider Impressions Assessment: Left shoulder pain, C-spine radiculopathy Plan: Today, we discussed different treatment options for her shoulder and there is some positive findings for pathology in the shoulder but nothing significant. There is some slight weakness but no significant weakness to indicate rotator cuff tear. I do not feel any injections would be appropriate with the shoulder and I would start with formal physical therapy. Overall, I feel that C-spine pathology is more likely however we have not worked on the shoulder specifically therefore we will start to rule this out with the therapy. We may consider MRI in the future. Follow-up in 6-8 weeks Signatures Electronically signed by : Fatoumata Jackson PA-C; Oct 08 2019 9:18AM EST (Author) Normal [employer] C Urineon 03-11-2018 C Urine Final Report: Few Mi xed skin contaminants Normal [facility] Comment on above: Performed By: #### 2 [id number] ####DAVID Microbiology [id number] [place] [address] MA Mamm Screen w/CAD if perf ormed bilaton 11-06-2017 MA Mamm Screen w/CAD if performed bilat Exam Date/Time:11/02/2017 11:08 ESTReason for Exam:SCREENING;ScreeningRep ortMA MAMM SCREEN W/CAD IF PERFORMED BILAT, 11/02/2017 10:53 AMCLINICAL STATEMENT: Screening.COMPARISON: 08/03/2016. 06/11/2012.TECHNIQUE: Standard MLO and CC projections of the right and left breast wereobtained on a digital system. Computer-assisted detection was used.FINDINGS:BREAST TISSUE COMPOSITION: Scattered fibroglandular densities.A few benign-appearing calcifications are present.No dominant mass, suspicious microcalcifications, or architectural distortion.CONCLUSION:BI-RA DS 2 - Benign, no evidence of malignancy. Normal interval followup isrecommended in 12 months.OVERALL ASSESSMENT- BENIGNA letter of notification will be sent to the patient regarding the results.Assessment / Recommendation: 2-1 Normal interval follow-upBreast density: Scattered Fibroglandular DensityRecall interval: 012 months FINAL REPORT Dictated: 11/06/2017 11:18 am Hayden Rodriguez MDigned (Electronic Signature): 11/06/2017 11:18 amSigned by: Hayden Rodriguez MD Technologist: CECAssessment: BI-RADS Category 2-Benign findingRecommendation: Normal interval follow-up Normal [facility] HPV High Riskon 11-05-2017 HPV High Risk See Ref Lab Rpt Normal [facility] Comment on above: Performed By: #### 1 [id number] ####DAVID [employer] [id number] [place] [address] IG PAP [id number] 11-01-2017 Diagnosis: See Ref Lab Report Normal [facility] Comment on above: Performed By: #### [id number] ####DAVID Send Outs [id number] [place] [address] C Urineon 10-27-2017 C Urine Final Report: Rare N ormal skin adarsh isolated Normal [facility] Comment on above: Performed By: #### 2 [id number] ####DAVID Microbiology [id number] [place] [address] FSHon 10-27-2017 FSH 50.0 mIU/mL Normal [facility] Comment on above: Result Comment: Male : 1.5 - 12.4 Female: Follicular phase 3.5 - 12.5 Ovulation phase 4.7 - 21.5 Luteal phase 1.7 - 7.7 Postmenopausal 25.8 - 134.8Performed At: [facility] [id number] [place], [place] [id number] Vincent PhD Ph:[phone] Performed By: #### 2 [id number] ####DAVID Send Outs [id number] [place] [address] TSHon 10-26-2017 Thyrotropin Qn 2.20 mIU/m Normal 0.30-5.60 [facility] Comment on above: Performed By: #### 2 [id number] ####DAVID [id number] [place] [address] Pathology (EM)on 10-25-2017 Pathology ([facility]) FINAL GYNECOLOGIC CY TOLOGY [id number] ADEQUACYSatisfactory for EvaluationEndocervical component absent but acceptable due to patient age/historyGENERAL CATEGORIZATIONNegative for Intraepithelial Lesion or MalignancyCOMMENTAtrophic cellular pattern.High Risk HPV was ordered and performed at [facility] Laboratory. Results arereported below in this report. A negative result is a normal result. Apositive result is an abnormal result.HPV HIGH RISK NEGATIVE: The results of this test indicate the patient'sspecimen is NEGATIVE for the following high-risk HPV types:16/18/31/33/35/39/45/ 51/52/56/58/59/66/68. RELATED LABORATORY RESULTSOrdered by: Nahomi Date: 10/25/2017 Ord Time: 07:46Test Collected Result Abnormal Range Units SpecimenName D&T TypeHPV Negative NA MSCRNA, 8HighRiskThe HPV test detects E6/E7 viral messenger RNA (mRNA) high-risk HPV iiqytwrar29,18,31,33,35,39, 45,51,55,58,59,66, and 68 which are associated with cervicalcancer and its precursor lesions. However, cross-reactions with othergenotypes may occur. Results should be correlated with cytologic andhistologic findings. Sensitivity may be affected by cellularity of specimen.CLINICAL HISTORYComment: No LMP provided.SPECIMEN(A) SCREENING CERVICAL/ENDOCERVICAL LIQUID-BASED PAPPerformed at [facility], [address] [place] [id number] by: Signed Out by: PADDY TEJEDA Funeral Pre Arrangement Counselor Reported: 10/31/2017 Normal [facility] Healthcare Comment on above: Performed By: #### G ANTHONY ####[facility] [address] [place] [address] C Urineon 10-08-2017 C Urine Final Report: >100,0 00 cfu/ml Escherichia coliORGANISM: ECSUSCEPTIBILITY RESULTSAntibiotic JALYN Dilutn JALYN InterpORGANISM: ECAmox/Cla : <=8/4 SAmp : <=8 SAmp/Sul : <=8/4 SCefaz : <=8 SCefo : <=2 SCipro : <=1 SGent : <=4 SLevo : <=2 SMero : <=1 SNitro : <=32 SPip/Josiah : <=16 STetra : <=4 STobra : <=4 SSXT : <=2/38 S Normal [facility] Comment on above: Performed By: #### 2 [id number] ####DAVID Microbiology [id number] [place] [id number] XR Shoulder Left 2+ Views (S tandard)on 04-30-2017 INR Coag RelTime (Bld) X-ray of the left shoulder 3 views due to pain reveals a normal-appearing left shoulder FUJI SYNAPSE [facility] No Panel Information [facility] Vital Signs Date Time Vital Sign Value Performing Clinician Facility 05-08-2025 11:43-0400 Body height 173.[address] [facility] 05-08-2025 11:43-0400 Body mass index (BMI) [Ratio] 35.2 kg/m2 Out [facility] 05-08-2025 11:43-0400 Body temperature 98 [degF] Out [facility] 05-08-2025 11:43-0400 Body weight 106.59 kg [address] [facility] 05-08-2025 11:43-0400 Diastolic blood pressure 80 mm[Hg] Out [facility] 05-08-2025 11:43-0400 Heart rate 80 /min Out [facility] 05-08-2025 11:43-0400 Systolic blood pressure 148 mm[Hg] Out [facility] 04-04-2025 09:41-0400 Body temperature 97.39 [degF] Rico Eaton APRN-BREAD WRAPPING MACHINE FEEDER Work Phone: [facility] 04-04-2025 09:41-0400 Diastolic blood pressure 92 mm[Hg] Rico Eaton APRN-BREAD WRAPPING MACHINE FEEDER Work Phone: [facility] 04-04-2025 09:41-0400 Heart rate 73 /min Rico Eaton SP[employer] WELDER [employer]-BREAD WRAPPING MACHINE FEEDER Work Phone: [facility] 04-04-2025 09:41-0400 Respiratory rate 14 /min Rico Eaton SPOT WELDER LINE-BREAD WRAPPING MACHINE FEEDER Work Phone: [facility] 04-04-2025 09:41-0400 SaO2% (BldA) [Mass fraction] 99 % Rico Eaton SPOT WELDER LINE-BREAD WRAPPING MACHINE FEEDER Work Phone: [facility] 04-04-2025 09:41-0400 Systolic blood pressure 142 mm[Hg] Rico Eaton SPOT WELDER LINE-BREAD WRAPPING MACHINE FEEDER Work Phone: [facility] 03-03-2025 15:39-0400 Body height 170.2 cm Lisa Conrad SPOT WELDER LINE.BREAD WRAPPING MACHINE FEEDER Work Phone: [facility] 03-03-2025 15:39-0400 Body mass index (BMI) [Ratio] 36.81 kg/m2 Lisa Triricki SPOT WELDER LINE.BREAD WRAPPING MACHINE FEEDER Work Phone: [facility] 03-03-2025 15:39-0400 Body temperature 97.39 [degF] Lisa Conrad SPOT WELDER LINE.BREAD WRAPPING MACHINE FEEDER Work Phone: [facility] 03-03-2025 15:39-0400 Body weight 106.59 kg Lisa Triricki SPOT WELDER LINE.BREAD WRAPPING MACHINE FEEDER Work Phone: [facility] 03-03-2025 15:39-0400 Diastolic blood pressure 68 mm[Hg] Lisa Conrad SPOT WELDER LINE.BREAD WRAPPING MACHINE FEEDER Work Phone: [facility] 03-03-2025 15:39-0400 Heart rate 65 /min Lisa Triricki SPOT WELDER LINE.BREAD WRAPPING MACHINE FEEDER Work Phone: [facility] 03-03-2025 15:39-0400 Respiratory rate 19 /min Lisa Triricki SPOT WELDER LINE.BREAD WRAPPING MACHINE FEEDER Work Phone: [facility] 03-03-2025 15:39-0400 SaO2% (BldA) [Mass fraction] 96 % Lisa Triricki SPOT WELDER LINE.BREAD WRAPPING MACHINE FEEDER Work Phone: [facility] 03-03-2025 15:39-0400 Systolic blood pressure 122 mm[Hg] Lisa Conrad SPOT WELDER LINE.BREAD WRAPPING MACHINE FEEDER Work Phone: [facility] 02-21-2025 09:17-0400 Body temperature 98.4 [degF] Rico Eaton SPOT WELDER LINE-BREAD WRAPPING MACHINE FEEDER Work Phone: [facility] 02-21-2025 09:17-0400 Diastolic blood pressure 91 mm[Hg] Rico Eaton SPOT WELDER LINE-BREAD WRAPPING MACHINE FEEDER Work Phone: [facility] 02-21-2025 09:17-0400 Heart rate 93 /min Rico Aldenwhitney SPOT WELDER LINE-BREAD WRAPPING MACHINE FEEDER Work Phone: [facility] 02-21-2025 09:17-0400 Respiratory rate 15 /min Rico Eaton SPOT WELDER LINE-BREAD WRAPPING MACHINE FEEDER Work Phone: [facility] 02-21-2025 09:17-0400 SaO2% (BldA) [Mass fraction] 100 % Rico Aldenwhitney SPOT WELDER LINE-BREAD WRAPPING MACHINE FEEDER Work Phone: [facility] 02-21-2025 09:17-0400 Systolic blood pressure 150 mm[Hg] Rico Eaton SPOT WELDER LINE-BREAD WRAPPING MACHINE FEEDER Work Phone: [facility] 01-29-2025 15:13-0400 Body height 170.2 cm Angy Francis SP[employer] WELDER LINE.BREAD WRAPPING MACHINE FEEDER Work Phone: [facility] 01-29-2025 15:13-0400 Body mass index (BMI) [Ratio] 36.56 kg/m2 Angy Francis [employer]DER [employer].BREAD WRAPPING MACHINE FEEDER Work Phone: [facility] 01-29-2025 15:13-0400 Body temperature 97.9 [degF] Angy Francis SP[employer] WELDER LINE.BREAD WRAPPING MACHINE FEEDER Work Phone: [facility] 01-29-2025 15:13-0400 Body weight 105.87 kg Angy Francis SPOT WELDER LINE.BREAD WRAPPING MACHINE FEEDER Work Phone: [facility] 01-29-2025 15:13-0400 Diastolic blood pressure 78 mm[Hg] Angy Tito SPOT WELDER LINE.BREAD WRAPPING MACHINE FEEDER Work Phone: [facility] 01-29-2025 15:13-0400 Heart rate 73 /min Angy Tito SP[employer] WELDER LINE.BREAD WRAPPING MACHINE FEEDER Work Phone: [facility] 01-29-2025 15:13-0400 SaO2% (BldA) [Mass fraction] 99 % Angy Tito SPOT WELDER LINE.BREAD WRAPPING MACHINE FEEDER Work Phone: [facility] 01-29-2025 15:13-0400 Systolic blood pressure 118 mm[Hg] Angy Tito SPOT WELDER LINE.BREAD WRAPPING MACHINE FEEDER Work Phone: [facility] 12-17-2024 14:16-0400 Body height 174 cm Angy Tito SP[employer] WELDER LINE.BREAD WRAPPING MACHINE FEEDER Work Phone: [facility] 12-17-2024 14:16-0400 Body mass index (BMI) [Ratio] 35.12 kg/m2 Angy Tito [employer].BREAD WRAPPING MACHINE FEEDER Work Phone: [facility] 12-17-2024 14:16-0400 Body weight 106.32 kg Angy Tito [employer] W[employer]DER [employer].BREAD WRAPPING MACHINE FEEDER Work Phone: [facility] 12-17-2024 14:16-0400 Diastolic blood pressure 78 mm[Hg] Angy Tito SP[employer] WELDER [employer].BREAD WRAPPING MACHINE FEEDER Work Phone: [facility] 12-17-2024 14:16-0400 Heart rate 83 /min Angy Tito [employer].BREAD WRAPPING MACHINE FEEDER Work Phone: [facility] 12-17-2024 14:16-0400 Respiratory rate 18 /min Angy Tito SP[employer] W[employer]DER [employer].BREAD WRAPPING MACHINE FEEDER Work Phone: [facility] 12-17-2024 14:16-0400 SaO2% (BldA) [Mass fraction] 100 % Angy Tito SP[employer] WELDER [employer].BREAD WRAPPING MACHINE FEEDER Work Phone: [facility] 12-17-2024 14:16-0400 Systolic blood pressure 124 mm[Hg] Angy Tito SP[employer] WELDER [employer].BREAD WRAPPING MACHINE FEEDER Work Phone: [facility] 01-09-2024 08:55-0400 Body height 174 cm Angy Tito SP[employer] WELDER [employer].BREAD WRAPPING MACHINE FEEDER Work Phone: [facility] 01-09-2024 08:55-0400 Body temperature 97.81 [degF] Angy Tito SP[employer] WELDER LINE.BREAD WRAPPING MACHINE FEEDER Work Phone: [facility] 01-09-2024 08:55-0400 Body weight 104.78 kg Angy Tito [employer] W[employer]DER [employer].BREAD WRAPPING MACHINE FEEDER Work Phone: [facility] 01-09-2024 08:55-0400 Diastolic blood pressure 78 mm[Hg] Angy Tito SP[employer] WELDER [employer].BREAD WRAPPING MACHINE FEEDER Work Phone: [facility] 01-09-2024 08:55-0400 Heart rate 79 /min Angy Tito [employer] W[employer].BREAD WRAPPING MACHINE FEEDER Work Phone: [facility] 01-09-2024 08:55-0400 Respiratory rate 18 /min Angy Tito [employer] W[employer]DER [employer].BREAD WRAPPING MACHINE FEEDER Work Phone: [facility] 01-09-2024 08:55-0400 SaO2% (BldA) [Mass fraction] 100 % Angy Tito SP[employer] W[employer]DER [employer].BREAD WRAPPING MACHINE FEEDER Work Phone: [facility] 01-09-2024 08:55-0400 Systolic blood pressure 128 mm[Hg] Angy Tito SP[employer] W[employer]DER [employer].BREAD WRAPPING MACHINE FEEDER Work Phone: [facility] 11-06-2022 07:42-0500 Body height 174 cm Angy Tito SP[employer] WELDER [employer].BREAD WRAPPING MACHINE FEEDER Work Phone: [facility] 11-06-2022 07:42-0500 Body temperature 97.59 [degF] Angy Tito SP[employer] WELDER LINE.BREAD WRAPPING MACHINE FEEDER Work Phone: [facility] 11-06-2022 07:42-0500 Body weight 101.97 kg Angy Tito SP[employer] W[employer]DER [employer].BREAD WRAPPING MACHINE FEEDER Work Phone: [facility] 11-06-2022 07:42-0500 Diastolic blood pressure 78 mm[Hg] Angy Tito SPOT WELDER LINE.BREAD WRAPPING MACHINE FEEDER Work Phone: [facility] 11-06-2022 07:42-0500 Heart rate 87 /min Angy Tito [employer]DER [employer].BREAD WRAPPING MACHINE FEEDER Work Phone: [facility] 11-06-2022 07:42-0500 Respiratory rate 18 /min Angy Tito SP[employer] W[employer]DER [employer].BREAD WRAPPING MACHINE FEEDER Work Phone: [facility] 11-06-2022 07:42-0500 SaO2% (BldA) [Mass fraction] 98 % Angy Tito SP[employer] WELDER [employer].BREAD WRAPPING MACHINE FEEDER Work Phone: [facility] 11-06-2022 07:42-0500 Systolic blood pressure 128 mm[Hg] Angy Tito SP[employer] WELDER LINE.BREAD WRAPPING MACHINE FEEDER Work Phone: [facility] 08-24-2022 15:59-0500 Diastolic blood pressure 89 mm[Hg] Ian Morton DPM Work Phone: [facility] 08-24-2022 15:59-0500 Heart rate 83 /min Ian Morton DPM Work Phone: [facility] 08-24-2022 15:59-0500 Systolic blood pressure 138 mm[Hg] Ian Morton DPM Work Phone: [facility] 08-24-2022 15:55-0500 Body temperature 97.7 [degF] Ian Morton DPM Work Phone: [facility] 06-29-2022 16:06-0400 Body temperature 98.4 [degF] Ian Morton DPM Work Phone: [facility] 06-29-2022 16:06-0400 Diastolic blood pressure 85 mm[Hg] Ian Morton DPM Work Phone: [facility] 06-29-2022 16:06-0400 Heart rate 76 /min Ian Morton DPM Work Phone: [facility] 06-29-2022 16:06-0400 Systolic blood pressure 138 mm[Hg] Ian Morton DPM Work Phone: [facility] 05-18-2022 15:47-0400 Body temperature 98.2 [degF] Ian Shoemakerman DPM Work Phone: [facility] 05-18-2022 15:47-0400 Diastolic blood pressure 87 mm[Hg] Ian Morton DPM Work Phone: [facility] 05-18-2022 15:47-0400 Heart rate 73 /min Ian Shoemakerman DPM Work Phone: [facility] 05-18-2022 15:47-0400 Systolic blood pressure 130 mm[Hg] Ian Shoemakerman DPM Work Phone: [facility] 04-20-2022 15:19-0400 Body temperature 97.11 [degF] Ian Morton DPM Work Phone: [facility] 04-20-2022 15:19-0400 Diastolic blood pressure 86 mm[Hg] Ian Shoemakerman DPM Work Phone: [facility] 04-20-2022 15:19-0400 Heart rate 79 /min Ian Morton DPM Work Phone: [facility] 04-20-2022 15:19-0400 Systolic blood pressure 136 mm[Hg] Ian Morton DPM Work Phone: [facility] 03-23-2022 15:37-0400 Diastolic blood pressure 84 mm[Hg] Ian Shoemakerman DPM Work Phone: [facility] 03-23-2022 15:37-0400 Heart rate 87 /min Ian Morton DPM Work Phone: [facility] 03-23-2022 15:37-0400 Systolic blood pressure 137 mm[Hg] Ian Shoemakerman DPM Work Phone: [facility] 03-23-2022 15:31-0400 Body temperature 97.9 [degF] Ian Morton DPM Work Phone: [facility] 03-09-2022 16:46-0400 Body temperature 98.4 [degF] Ian Morton DPM Work Phone: [facility] 03-09-2022 16:46-0400 Diastolic blood pressure 82 mm[Hg] Ian Morton DPM Work Phone: [facility] 03-09-2022 16:46-0400 Heart rate 76 /min Ian Morton DPM Work Phone: [facility] 03-09-2022 16:46-0400 Systolic blood pressure 133 mm[Hg] Ian Morton DPM Work Phone: [facility] 03-02-2022 11:49-0400 Diastolic blood pressure 81 mm[Hg] Ian Morton DPM Work Phone: [facility] 03-02-2022 11:49-0400 Heart rate 76 /min Ian Morton DPM Work Phone: [facility] 03-02-2022 11:49-0400 Systolic blood pressure 141 mm[Hg] Ian Morton DPM Work Phone: [facility] 03-02-2022 11:26-0400 Body temperature 98.2 [degF] Ian Morton DPM Work Phone: [facility] 02-09-2022 11:04-0400 Body temperature 99.19 [degF] Ian Morton DPM Work Phone: [facility] 02-09-2022 11:04-0400 Diastolic blood pressure 84 mm[Hg] Ian Morton DPM Work Phone: [facility] 02-09-2022 11:04-0400 Heart rate 86 /min Ian Morton DPM Work Phone: [facility] 02-09-2022 11:04-0400 Systolic blood pressure 131 mm[Hg] Ian Morton DPM Work Phone: [facility] 01-23-2022 14:52-0400 Body height 174 cm MIKA Lawson MD Work Phone: [facility] 01-23-2022 14:52-0400 Body weight 103.87 kg MIKA Lawson MD Work Phone: [facility] 12-21-2021 14:42-0400 Body height 174 cm Angy Tito [employer].BREAD WRAPPING MACHINE FEEDER Work Phone: [facility] 12-21-2021 14:42-0400 Body temperature 98.01 [degF] Angy Tito SP[employer] WELDER [employer].BREAD WRAPPING MACHINE FEEDER Work Phone: [facility] 12-21-2021 14:42-0400 Body weight 103.87 kg Angy Tito SP[employer] W[employer].BREAD WRAPPING MACHINE FEEDER Work Phone: [facility] 12-21-2021 14:42-0400 Diastolic blood pressure 70 mm[Hg] Angy Tito SP[employer] WELDER [employer].BREAD WRAPPING MACHINE FEEDER Work Phone: [facility] 12-21-2021 14:42-0400 Heart rate 71 /min Angy Tito [employer] W[employer].BREAD WRAPPING MACHINE FEEDER Work Phone: [facility] 12-21-2021 14:42-0400 Respiratory rate 18 /min Angy Tito SP[employer] W[employer]DER [employer].BREAD WRAPPING MACHINE FEEDER Work Phone: [facility] 12-21-2021 14:42-0400 SaO2% (BldA) [Mass fraction] 99 % Angy Ttio SP[employer] WELDER LINE.BREAD WRAPPING MACHINE FEEDER Work Phone: [facility] 12-21-2021 14:42-0400 Systolic blood pressure 122 mm[Hg] Angy Tito SP[employer] WELDER LINE.BREAD WRAPPING MACHINE FEEDER Work Phone: [facility] 12-15-2021 16:10-0400 Diastolic blood pressure 74 mm[Hg] Angy Tito SP[employer] WELDER LINE.BREAD WRAPPING MACHINE FEEDER Work Phone: [facility] 12-15-2021 16:10-0400 Systolic blood pressure 124 mm[Hg] Angy Tito SP[employer] WELDER LINE.BREAD WRAPPING MACHINE FEEDER Work Phone: [facility] 12-15-2021 15:58-0400 Body height 174 cm Angy Tito SP[employer] WELDER LINE.BREAD WRAPPING MACHINE FEEDER Work Phone: [facility] 12-15-2021 15:58-0400 Body temperature 98.2 [degF] Angy Tito SP[employer] WELDER [employer].BREAD WRAPPING MACHINE FEEDER Work Phone: [facility] 12-15-2021 15:58-0400 Body weight 104.24 kg Angy Tito SP[employer] W[employer].BREAD WRAPPING MACHINE FEEDER Work Phone: [facility] 12-15-2021 15:58-0400 Heart rate 72 /min Angy Tito SP[employer] W[employer]DER [employer].BREAD WRAPPING MACHINE FEEDER Work Phone: [facility] 12-15-2021 15:58-0400 Respiratory rate 18 /min Angy Tito [employer] W[employer]DER [employer].BREAD WRAPPING MACHINE FEEDER Work Phone: [facility] 12-15-2021 15:58-0400 SaO2% (BldA) [Mass fraction] 100 % Angy Tito SP[employer] W[employer]DER LINE.BREAD WRAPPING MACHINE FEEDER Work Phone: [facility] 12-08-2021 14:04-0400 Diastolic blood pressure 76 mm[Hg] Ian Morton DPM Work Phone: [facility] 12-08-2021 14:04-0400 Heart rate 78 /min Ian Morton DPM Work Phone: [facility] 12-08-2021 14:04-0400 Systolic blood pressure 112 mm[Hg] Ian Morton DPM Work Phone: [facility] 12-08-2021 13:58-0400 Body temperature 98.1 [degF] Ian Morton DPM Work Phone: [facility] 11-24-2021 15:33-0500 Diastolic blood pressure 80 mm[Hg] Ian Morton DPM Work Phone: [facility] 11-24-2021 15:33-0500 Heart rate 76 /min Ian Morton DPM Work Phone: [facility] 11-24-2021 15:33-0500 Systolic blood pressure 125 mm[Hg] Ian Wangmerman DPM Work Phone: [facility] 11-24-2021 15:27-0500 Body temperature 98.1 [degF] Ian Morton DPM Work Phone: [facility] 04-30-2017 08:10-0400 BMI (Body Mass Index) 28.13 kg/m2 Shankar Howard [facility] Work Phone: 04-30-2017 08:10-0400 BP Diastolic 86 mm[Hg] Shankar Howard [facility] Work Phone: 04-30-2017 08:10-0400 BP Systolic 136 mm[Hg] Shankar Howard [facility] Work Phone: 04-30-2017 08:10-0400 Height 172.7 cm Shankar Howard [facility] Work Phone: 04-30-2017 08:10-0400 Pulse (Heart Rate) 86 /min Shankar Howard [facility] Work Phone: 04-30-2017 08:10-0400 Weight 83.92 kg Shankar Howard [facility] Work Phone: Encounters Encounter Date Encounter Type Care Provider Facility Start: 05-15-2025 ambulatory Carmita Encarnacion Facility: [facility] Start: 05-08-2025 End: 05-08-[address] Carmita Encarnacion MD -[facility] Work Phone: Start: 05-08-2025 End: 05-08-2025 ambulatory Out of Town Doctor -[facility] Start: 04-04-2025 End: 04-04-2025 Patient encounter procedure Rico Eaton APRN-BREAD WRAPPING MACHINE FEEDER Work Phone: [facility] Comment on above: Acute cystitis with hematuria (Primary Dx); Urinary frequency Start: 04-04-2025 End: 04-04-2025 ambulatory ANGY [facility] Start: 03-04-2025 End: 05-04-2025 Follow-up encounter Lisa Conrad APRN.CNP Work Phone: [facility] Comment on above: Results Start: 03-03-2025 End: 03-03-2025 Patient encounter procedure Lisa Conrad APRN.BREAD WRAPPING MACHINE FEEDER Work Phone: [facility] Comment on above: Acute cystitis with hematuria (Primary Dx); Dysuria; Chronic constipation; S/P hysterectomy Start: 03-03-2025 End: 03-03-2025 ambulatory Jeniffer Laird RN NURSE CALL CENTER ASSOCIATE Comment on above: UTI Start: 02-25-2025 ambulatory [facility] FRANCIS [facility] ty:[facility] Start: 02-25-2025 End: 02-25-2025 Subsequent hospital visit by physician Mammo/Bone Density [facility] Comment on above: Osteopenia, unspecif ied location [M85.80] Encounter for screen ing mammogram for malignant neoplasm of breast [Z12.31] Start: 02-21-2025 End: 02-21-2025 Patient encounter procedure Rico Eaton APRN-BREAD WRAPPING MACHINE FEEDER Work Phone: [facility] Comment on above: Acute cystitis with hematuria (Primary Dx) Start: 02-21-2025 End: 02-21-2025 ambulatory [facility] Start: 02-09-2025 End: 02-09-2025 Follow-up encounter Angy Francis APRN.BREAD WRAPPING MACHINE FEEDER Work Phone: [facility] Comment on above: Results Start: 02-06-2025 End: 02-06-2025 ambulatory ANGY FRANCIS Facility:[facility] Start: 01-29-2025 End: 01-29-2025 Patient encounter procedure Angy Francis APRN.BREAD WRAPPING MACHINE FEEDER Work Phone: [facility] Comment on above: Wellness examination (Primary Dx); Osteopenia, unspecified location; Post-menopausal; Vitamin D deficiency; Encounter for screening for diabetes mellitus; Screening for deficiency anemia; Screening for lipid disorders; Screening for thyroid disorder; Encounter for screening mammogram for malignant neoplasm of breast; Class 2 obesity without serious comorbidity with body mass index (BMI) of 36.0 to 36.9 in adult, unspecified obesity type Start: 01-29-2025 End: 01-29-2025 Patient encounter status Angy Francis SP[employer].BREAD WRAPPING MACHINE FEEDER Work Phone: [facility] Start: 01-29-2025 End: 01-29-2025 ambulatory ANGY FRANCIS Facility:[facility] Start: 01-29-2025 Encounter for genera l adult medical examination without abnormal findings ANGY FRANCIS [facility] Start: 12-17-2024 End: 12-17-2024 Patient encounter procedure Angy Francis [employer].BREAD WRAPPING MACHINE FEEDER Work Phone: [facility] Comment on above: Anticipatory anxiety Start: 12-17-2024 End: 12-17-2024 ambulatory ANGY FRANCIS Facility:[facility] Start: 12-15-2024 End: 12-15-2024 ambulatory Angy Francis [employer].BREAD WRAPPING MACHINE FEEDER Work Phone: [facility] Comment on above: Ativan for upcoming flight Start: 11-21-2024 End: 11-21-2024 ambulatory CLYDE BLANCO Facility:[facility] Start: 11-21-2024 End: 11-21-2024 Patient encounter procedure Clyde Blanco MD Work Phone: Ophthalmology Comment on above: Acute bacterial conj unctivitis of right eye (Primary Dx); Posterior vitreous detachment of right eye; Vitreous floaters of both eyes Start: 11-20-2024 End: 11-20-2024 ambulatory CLYDE BLANCO Facility:[facility] Start: 11-20-2024 End: 11-20-2024 Patient encounter procedure Clyde Blanco MD Work Phone: Ophthalmology Comment on above: Posterior vitreous d etachment of right eye (Primary Dx); Vitreous floaters of both eyes; Acute bacterial conjunctivitis of right eye Start: 11-15-2024 End: 11-15-2024 Patient encounter procedure Fartun Damon OD Work Phone: Optometry Comment on above: Posterior vitreous d etachment of right eye (Primary Dx) Start: 05-30-2024 End: 05-30-2024 ambulatory ANGY FRANCIS Facility:[facility] Start: 05-30-2024 End: 05-30-2024 Patient encounter procedure Fartun Damon OD Work Phone: Optometry Comment on above: Hyperopia of both ey es (Primary Dx); Presbyopia; Chronic dryness of both eyes Start: 05-29-2024 End: 05-29-2024 Telephone encounter Angy Francis APRN.BREAD WRAPPING MACHINE FEEDER Work Phone: [facility] Comment on above: Results Start: 05-24-2024 End: 05-24-2024 ambulatory ANGY FRANCIS Facility:[facility] Start: 05-16-2024 End: 05-16-2024 Telephone encounter Angy Francis APRN.BREAD WRAPPING MACHINE FEEDER Work Phone: [facility] Comment on above: Lab Orders Start: 02-14-2024 Telephone encounter Angy Francis APRN.BREAD WRAPPING MACHINE FEEDER Work Phone: [facility] Comment on above: Results Start: 02-12-2024 Telephone encounter Angy Francis APRN.BREAD WRAPPING MACHINE FEEDER Work Phone: [facility] Comment on above: Orders Start: 01-28-2024 Telephone encounter Angy Francis APRN.BREAD WRAPPING MACHINE FEEDER Work Phone: [facility] Comment on above: Results Start: 01-24-2024 Documentation procedure Mammog meri Coordinator [facility] ANCILLARY AREA NOT LISTED Start: 01-24-2024 Letter encounter [facility] Start: 01-23-2024 End: 01-23-2024 Subsequent hospital visit by physician Mammo/Bone Density [facility] Start: 01-15-2024 Telephone encounter Angy Francis APRN.BREAD WRAPPING MACHINE FEEDER Work Phone: [facility] Comment on above: Results Start: 01-09-2024 End: 01-09-2024 Subsequent hospital visit by physician Xr [facility] Comment on above: Bilateral hip pain [ M25.551, M25.552] Start: 01-09-2024 End: 01-09-2024 Patient encounter procedure Angy Francis APRN.CNP Work Phone: [facility] Comment on above: Wellness examination (Primary Dx); Bilateral hip pain; Encounter for screening mammogram for malignant neoplasm of breast; Vitamin D deficiency; Encounter for screening for diabetes mellitus; Screening for deficiency anemia; Screening for lipid disorders Start: 01-09-2024 End: 01-09-2024 Patient encounter status Angy Francis APRN.CNP Work Phone: [facility] Work Phone: Start: 01-11-2023 Documentation procedure Mammog meri Coordinator [facility] Start: 01-11-2023 Letter encounter Mammography Coordinator [facility] ANCILLARY AREA NOT LISTED Start: 01-11-2023 Telephone encounter Angy Francis APRN.CNP Work Phone: [facility] Comment on above: Results Start: 01-10-2023 End: 01-10-2023 Subsequent hospital visit by physician Mammo/Bone Density [facility] Comment on above: Post-menopausal [Z78 .0] Start: 11-07-2022 Telephone encounter Angy Francis APRN.CNP Work Phone: [facility] Comment on above: Results Start: 11-06-2022 End: 11-06-2022 Patient encounter procedure Angy Francis APRN.CNP Work Phone: [facility] Comment on above: Other fatigue (Prima ry Dx); Abnormal heart rate; Vitamin D deficiency; Screening for deficiency anemia; Encounter for screening for diabetes mellitus; Screening for lipid disorders Start: 08-24-2022 End: 08-28-2022 ambulatory [facility] Start: 08-24-2022 End: 08-24-2022 Postop follow up visit related to original px Ian Morton DPM Work Phone: [facility] Comment on above: No post-op complicat ions (Primary Dx); Hammer toe of second toe of left foot [M20.42 (ICD-10-CM)] Start: 06-29-2022 End: [facility]: 06-29-2022 End: 06-29-2022 Postop follow up visit related to original px Ian Morton DPM Work Phone: [facility] Comment on above: Hammer toe of left f oot [M20.42 (ICD-10-CM)] (Primary Dx) Start: 05-26-2022 ambulatory Angy nguyen APRN.BREAD WRAPPING MACHINE FEEDER Work Phone: [facility] Comment on above: Requesting Ativan HEAL[employer] r airline flight Start: 05-18-2022 End: 05-22-2022 [facility] Start: 05-18-2022 End: 05-18-2022 Follow-up encounter Ian Morton DPM Work Phone: [facility] Comment on above: Left foot pain (Prim joana Dx) Start: 05-12-2022 End: 05-12-2022 Patient encounter procedure Fartun Damon OD Work Phone: Optometry Comment on above: Hyperopia of both ey es (Primary Dx); Presbyopia; Optic nerve cupping of both eyes Start: 04-20-2022 End: 04-24-2022 ambulatory IAN BROWN [facility] Start: 04-20-2022 End: 04-20-2022 Follow-up encounter aIn Morton DPM Work Phone: [facility] Comment on above: Left foot pain (Prim joana Dx) Start: 03-23-2022 End: 03-27-2022 ambulatory IAN BROWN [facility] Start: 03-23-2022 End: 03-23-2022 Postop follow up visit related to original px Ian Morton DPM Work Phone: [facility] Comment on above: Left foot pain (Prim joana Dx); No post-op complications; Hammertoe of left foot Start: 03-09-2022 End: 03-13-2022 ambulatory IAN BROWN [facility] Start: 03-09-2022 End: 03-09-2022 Follow-up encounter Ian Morton DPM Work Phone: [facility] Comment on above: Left foot pain (Prim joana Dx) Start: 03-02-2022 End: 03-06-2022 ambulatory IAN BROWN [facility] Start: 03-02-2022 End: 03-02-2022 Postop follow up visit related to original px Ian Morton DPM Work Phone: [facility] Comment on above: Left foot pain (Prim joana Dx); No post-op complications; Hammer toe of second toe of left foot Start: 02-22-2022 End: 02-22-2022 ambulatory IAN [facility] Start: 02-09-2022 End: 02-13-2022 ambulatory [facility] Start: 02-09-2022 Preprocedural examin ation done Ian Morton DPM Work Phone: [facility] Work Phone: Start: 02-09-2022 End: 02-09-2022 ambulatory IAN [facility] Start: 02-09-2022 End: 02-09-2022 Office outpatient visit 15 minutes Ian Morton DPM Work Phone: [facility] Comment on above: Hammer toe of left f oot (Primary Dx) Start: 01-24-2022 Patient encounter status Ian Morton DPM Work Phone: [facility] Work Phone: Start: 01-23-2022 End: 01-23-2022 Patient encounter procedure Makenzie Laswon MD Work Phone: Plastic Surgery Comment on above: Breast ptosis (Prima ry Dx); Back pain, unspecified back location, unspecified back pain laterality, unspecified chronicity Start: 01-12-2022 End: 01-12-2022 ambulatory IANTOBIAS BROWN [facility] Start: 12-22-2021 Documentation procedure Mammog meri Coordinator [facility] Start: 12-22-2021 Letter encounter Mammography Coordinator [facility] ANCILLARY AREA NOT LISTED Start: 12-22-2021 Telephone encounter Angy Francis APRN.CNP Work Phone: [facility] Comment on above: Results Start: 12-21-2021 End: 12-21-2021 Patient encounter procedure Angy Francis APRN.CNP Work Phone: [facility] Comment on above: Wellness examination (Primary Dx); Encounter for screening for diabetes mellitus; Screening for deficiency anemia; Screening for lipid disorders; Screening for thyroid disorder; Screening for HIV (human immunodeficiency virus) Start: 12-21-2021 End: 12-21-2021 Patient encounter status Angy Francis APRN.CNP Work Phone: [facility] Start: 12-15-2021 End: 12-15-2021 Patient encounter procedure Angy Francis APRN.CNP Work Phone: [facility] Comment on above: Large breasts (Prima ry Dx); Anxiety; Encounter for screening mammogram for malignant neoplasm of breast Start: 12-08-2021 End: 12-08-2021 ambulatory IAN BROWN [facility] Start: 12-08-2021 End: 12-08-2021 Office outpatient visit 10 minutes Ian Morton DPCisco Work Phone: [facility] Comment on above: Metatarsalgia, left foot (Primary Dx); Hammer toe of second toe of left foot Start: 11-24-2021 End: 11-28-2021 ambulatory IAN MORTON [facility] Start: 11-24-2021 End: 11-24-2021 Office outpatient new 30 minutes Ian Morton DPM Work Phone: [facility] Comment on above: Hammer toe of second toe of left foot (Primary Dx); Metatarsalgia, left foot Start: 09-26-2018 Patient encounter procedure Jorge Oropeza Facility:[facility] Start: 03-09-2018 End: 03-10-2018 Patient encounter procedure Brant Engle Alexei Facility:[facility] Start: 03-09-2018 End: 03-10-2018 Patient encounter procedure Brant Engle Alexei Facility:[facility] Start: 03-09-2018 Patient encounter Facil [id number] Start: 11-02-2017 End: 11-03-2017 Patient encounter procedure Jorge Oropeza Facility:[facility] Start: 10-27-2017 End: 10-27-2017 Patient encounter procedure Jorge Oropeza Facility:[facility] Start: 10-26-2017 End: 10-27-2017 Patient encounter procedure Jorgebeatris Oropeza Facility:[facility] Start: 10-25-2017 End: 10-26-2017 Patient encounter procedure Jorge Oropeza Facility:[facility] Start: 10-25-2017 End: 10-26-2017 Patient encounter procedure Jorge Oropeza Facility:[facility] Start: 10-05-2017 End: 10-06-2017 Patient encounter procedure Brant Onielpatrick Linda Facility:[facility] Start: 10-05-2017 End: 10-06-2017 Patient encounter procedure Brant Jonesgiovanni Facility:[facility] Start: 04-30-2017 End: 04-30-2017 Office outpatient new 20 minutes Bud Dudley Work Phone: [facility] Comment on above: Bursitis/tendonitis, shoulder (Primary Dx);Right shoulder pain, unspecified chronicity;Left shoulder pain, unspecified chronicity;Cervical radiculopathy at C6 Procedures Date Procedure Procedure Detail Performing Clinician Start: 04-04-2025 Urnls dip stick/tabl et rgnt non-auto w/o micrscp Rico Winkler Roverto [employer]READ WRAPPING MACHINE FEEDER Work Phone: Start: 03-03-2025 Culture bacterial quanttative colony count urine Lisa Conrad [employer].BREAD WRAPPING MACHINE FEEDER Work Phone: Start: 03-03-2025 Urnls dip stick/tabl et rgnt auto w/o microscopy Lisa Conrad [employer].BREAD WRAPPING MACHINE FEEDER Work Phone: Start: 02-25-2025 Mammography Rico olson [employer]-BREAD WRAPPING MACHINE FEEDER Work Phone: Start: 02-21-2025 Urnls dip stick/tabl et rgnt non-auto w/o micrscp Rico Ruanoayshaashley [employer]-BREAD WRAPPING MACHINE FEEDER Work Phone: Start: 02-06-2025 Lipid 1996 panel - S hilton or Plasma Angy Francis [employer].BREAD WRAPPING MACHINE FEEDER Work Phone: Start: 11-20-2024 Computerized ophthal jalyn imaging retina Clyde Blanco MD Work Phone: Start: 08-29-2024 Colonoscopy Fartun bender II, OD Work Phone: Start: 01-23-2024 Mammography Rico olson [employer] WRAPPING MACHINE FEEDER Work Phone: Start: 01-12-2024 Lipid 1996 panel - S hilton or Plasma Angy Francis [employer].BREAD WRAPPING MACHINE FEEDER Work Phone: Start: 01-09-2024 Adult depression scr eening assessment Angy Francis [employer].BREAD WRAPPING MACHINE FEEDER Work Phone: Start: 01-10-2023 NANCY SCREENING W GINGER Ch erika Francis [employer].BREAD WRAPPING MACHINE FEEDER Work Phone: Start: 01-10-2023 Mammography Mammo/Bone Hosp Start: 11-06-2022 Lipid 1996 panel - S hilton or Plasma Angy Francis APRN.BREAD WRAPPING MACHINE FEEDER Work Phone: Start: 05-18-2022 Radex foot complete minimum 3 views Ian Morton DPM Work Phone: Start: 05-12-2022 End: 05-12-2022 Fundus photography w/interpretation & report Fartun Damon OD Work Phone: Start: 04-20-2022 Radex foot complete minimum 3 views Ian Morton DPM Work Phone: Start: 03-23-2022 Radex foot complete minimum 3 views Ian Morton DPM Work Phone: Start: 03-09-2022 Radex foot complete minimum 3 views Iantobias Morton DPM Work Phone: Start: 03-02-2022 Radex foot complete minimum 3 views Ian Morton DPM Work Phone: Start: 12-21-2021 Mammography Angy brewster [employer].BREAD WRAPPING MACHINE FEEDER Work Phone: Start: 12-15-2021 Adult depression scr eening assessment Angy Francis [employer].BREAD WRAPPING MACHINE FEEDER Work Phone: Start: 07-06-2020 Mammography Ian nielson DPM Work Phone: Start: 08-04-2019 Colonoscopy Angy brewster [employer].BREAD WRAPPING MACHINE FEEDER Work Phone: H/O: hysterectomy S/P hysterectomy Winter n C Trill [employer].BREAD WRAPPING MACHINE FEEDER Work Phone: Plan of Treatment Date Care Activity Detail Author Start: 02-06-2030 Lipid panel Lipid Screening [facility] Start: 08-29-2029 Screening for malign ant neoplasm of colon [facility] Start: 01-11-2029 Lipid panel Lipid Screening [facility] Start: 02-07-2028 Diabetes Screening Diabetes Screenin g [facility] Start: 11-06-2027 Lipid panel Lipid Screening [facility] Start: 11-06-2027 LIPID SCREEN LIPID SCREEN [facility] Start: 05-24-2027 Diabetes Screening Diabetes Screenin g [facility] Start: 01-11-2027 Diabetes Screening Diabetes Screenin g [facility] Start: 12-21-2026 LIPID SCREEN LIPID SCREEN [facility] Start: 02-25-2026 Screening for malign ant neoplasm of breast [facility] Start: 01-29-2026 Depression Screening Depression Scre ening [facility] Comment on above: Postponed from 01/08 (Postponed To Appropriate Date) Start: 01-29-2026 Pneumococcal Vaccine : 50+ (1 of 1 - PCV) Pneumococcal Vaccine: 50+ (1 of 1 - PCV) [facility] Comment on above: Postponed from 04/08 (Declined at this time) Start: 01-29-2026 Urine microalbumin profile DTaP,Tdap,Td Vaccine (2 - Td or Tdap) [facility] Comment on above: Postponed from 10/01 (Declined at this time) Start: 01-24-2026 LIPID SCREEN LIPID SCREEN [facility] Start: 11-06-2025 DIABETES SCREEN DIABETES SCREEN [facility] Start: 11-06-2025 Diabetes Screening Diabetes Screenin g [facility] Start: 06-05-2025 End: 06-05-2025 Patient encounter procedure 06/05/2025 1:00 PM EDT Office Visit [facility] Optometry [address] [place] [address] Fartun Damon II, OD [address] [place] [address] Eye Exam (MMO / VSP through [id number]) Optometry Comment on above: Eye Exam (MMO / VSP through [id number]) Start: 05-25-2025 Influenza vaccination Influenza Vacc ine (#1) [facility] Start: 02-25-2025 End: 02-25-2025 Patient encounter procedure [facility] Comment on above: Encounter for screen ing mammogram for malignant neoplasm of breast [Z12.31] Osteopenia, unspecif ied location [M85.80]; Post-menopausal [Z78.0] Start: 01-29-2025 End: 01-29-2025 Patient encounter procedure 01/29/2025 2:40 PM EDT Office Visit [address] [address] Angy Francis, [employer].[facility] [address] [facility] [place] [address] Yearly [facility] Comment on above: Yearly Start: 01-29-2025 End: 04-30-2025 25-hydroxyvitamin D3 [Mass/volume] in Serum or Plasma VITAMIN D 25 HYDROXY Lab Routine Vitamin D deficiency Expected: 01/29/2025, Expires: 04/30/2025 [facility] Comment on above: Expected: 01/29/2025 , Expires: 04/30/2025 Start: 01-29-2025 End: 04-30-2025 CBC panel - Blood by Automated count COMPLETE BLOOD COUNT Lab Routine Screening for deficiency anemia Expected: 01/29/2025, Expires: 04/30/2025 [facility] Work Phone: Comment on above: Expected: 01/29/2025 , Expires: 04/30/2025 Start: 01-29-2025 End: 04-30-2025 Comprehensive metabolic 2000 panel - Serum or Plasma COMPREHENSIVE METABOLIC PANEL Lab Routine Encounter for screening for diabetes mellitus Expected: 01/29/2025, Expires: 04/30/2025 [facility] Comment on above: Expected: 01/29/2025 , Expires: 04/30/2025 Start: 01-29-2025 End: 04-30-2025 Lipid 1996 panel - Serum or Plasma LIPID PANEL, FASTING Lab Routine Screening for lipid disorders Expected: 01/29/2025, Expires: 04/30/2025 [facility] Comment on above: Expected: 01/29/2025 , Expires: 04/30/2025 Start: 01-22-2025 Screening for malign ant neoplasm of breast [facility] Start: 01-08-2025 Depression Screening Depression Scre ening [facility] Start: 01-08-2025 Hepatitis B Vaccine (1 of 3 - 19+ 3-dose series) Hepatitis B Vaccine (1 of 3 - 19+ 3-dose series) [facility] Comment on above: Postponed from 04/08 (Declined at this time) Start: 01-08-2025 Urine microalbumin profile DTaP,Tdap,Td Vaccine (2 - Td or Tdap) [facility] Comment on above: Postponed from 10/01 (Declined at this time) Start: 12-21-2024 DIABETES SCREEN DIABETES SCREEN [facility] Start: 11-21-2024 End: 11-21-2024 Patient encounter procedure 11/21/2024 4:15 PM EST Office Visit [facility] [address] [place] [address] Clyde Blanco MD [address] [place] [address] CONJ-RE Ophthalmology Comment on above: CONJ-RE Start: 08-04-2024 Colonoscopy COLONOSCOPY [facility] Start: 08-04-2024 COLORECTAL CANCER SCREENING COLORECTAL CANCER SCREENING [facility] Start: 08-04-2024 Screening for malign ant neoplasm of colon [facility] Start: 05-30-2024 End: 05-30-2024 Patient encounter procedure 05/30/2024 4:00 PM EDT Office Visit [facility] [address] [id number] Fartun Damon II, OD [address] [place] [address] Eye Exam (MMO / VSP through [id number]) Optometry Comment on above: Eye Exam (MMO / VSP through [id number]) Start: 05-25-2024 Influenza vaccination Influenza Vacc ine (#1) [facility] Start: 02-12-2024 End: 09-09-2024 CREATININE BLD CREATININE BLD Lab Routine Elevated serum creatinine Expected: 02/12/2024, Expires: 09/09/2024 [facility] Work Phone: Comment on above: Expected: 02/12/2024 , Expires: 09/09/2024 Start: 01-25-2024 DIABETES SCREEN DIABETES SCREEN [facility] Start: 01-23-2024 End: 01-23-2024 Patient encounter procedure 01/23/2024 4:30 PM EDT Appointment [facility] [address] [place] [id number] Encounter for screening mammogram for malignant neoplasm of breast [Z12.31] [facility] Comment on above: Encounter for screen ing mammogram for malignant neoplasm of breast [Z12.31] Start: 01-11-2024 Mammography MAMMOGRAM [facility] Start: 01-11-2024 Screening for malign ant neoplasm of breast Mammogram Screening [facility] Start: 01-09-2024 End: 04-09-2024 25-hydroxyvitamin D3 [Mass/volume] in Serum or Plasma VITAMIN D 25 HYDROXY Lab Routine Vitamin D deficiency Expected: 01/09/2024, Expires: 04/09/2024 [facility] Work Phone: Comment on above: Expected: 01/09/2024 , Expires: 04/09/2024 Start: 01-09-2024 End: 04-09-2024 CBC panel - Blood by Automated count COMPLETE BLOOD COUNT Lab Routine Screening for deficiency anemia Expected: 01/09/2024, Expires: 04/09/2024 [facility] Work Phone: Comment on above: Expected: 01/09/2024 , Expires: 04/09/2024 Start: 01-09-2024 End: 04-09-2024 Comprehensive metabolic 2000 panel - Serum or Plasma COMPREHENSIVE METABOLIC PANEL Lab Routine Encounter for screening for diabetes mellitus Expected: 01/09/2024, Expires: 04/09/2024 [facility] Work Phone: Comment on above: Expected: 01/09/2024 , Expires: 04/09/2024 Start: 01-09-2024 End: 04-09-2024 Lipid 1996 panel - Serum or Plasma LIPID PANEL BASIC Lab Routine Screening for lipid disorders Expected: 01/09/2024, Expires: 04/09/2024 [facility] Work Phone: Comment on above: Expected: 01/09/2024 , Expires: 04/09/2024 Start: 01-05-2024 Urine microalbumin profile DTAP,TDAP,TD (2 - Td or Tdap) [facility] Comment on above: Postponed from 10/01 (Declined at this time) Start: 12-21-2022 Mammography MAMMOGRAM [facility] Start: 12-21-2022 Screening for malign ant neoplasm of breast Mammogram [facility] Start: 12-15-2022 Adult depression screening assessment DEPRESSION SCREENING [facility] Start: 11-06-2022 End: 01-06-2023 25-hydroxyvitamin D3 [Mass/volume] in Serum or Plasma [facility] Work Phone: Comment on above: Expected: 11/06/2022 , Expires: 01/06/2023 Start: 11-03-2022 Diabetes mellitus screening Diabetes Screening [facility] Start: 08-24-2022 End: 08-24-2022 Patient encounter procedure 08/24/2022 Office Visit PodiatrIan Traylor DPM [address] [place] [address] [facility] Start: 06-29-2022 End: 06-29-2022 Patient encounter procedure 06/29/2022 Office Visit Podiatry Ian Morton DPM [address] [place] [address] [facility] Start: 05-25-2022 Influenza vaccination [facility] Start: 05-18-2022 End: 05-18-2022 Follow-up encounter 05/18/2022 Follow-Up Podiatry Ian Morton DPM [address] [place] [address] [facility] Start: 04-20-2022 End: 04-20-2022 Follow-up encounter 04/20/2022 Follow-Up Podiatry Ian Morton DPM [address] [place] [address] [facility] Start: 03-23-2022 End: 03-23-2022 Patient encounter procedure 03/23/2022 Office Visit PodiatrIan Traylor DPM [address] [place] [address] [facility] Start: 03-09-2022 End: 03-09-2022 Follow-up encounter 03/09/2022 Follow-Up Podiatry Ian Morton DPM [address] [place] [address] [facility] Start: 03-02-2022 End: 03-02-2022 Follow-up encounter 03/02/2022 Follow-Up Podiatry Ian Morton DPM [address] [place] [address] [facility] Start: 02-22-2022 End: 02-22-2022 Admission to [facility] 02/22/2022 Surgery Ian Morton DPM [address] [place] [address] REPAIR HAMMERTOE 2nd left foot [facility] Periop Comment on above: REPAIR HAMMERTOE 2nd left foot Start: 02-22-2022 End: 02-22-2022 REPAIR HAMMERTOE REPAIR HAMMERTOE Preop testing Hammertoe of left foot 02/22/2022 11:07 AM EDT [facility] [place] Start: 02-22-2022 Subsequent hospital visit by physician 02/22/2022 Hospital Encounter Ian Morton DPM [address] [place] [address] [facility] [facility] Start: 02-09-2022 End: 02-09-2022 Patient encounter procedure 02/09/2022 Office Visit Pre-Admission Testing Ian Morton DPM [address] [place] [address] [facility] Preadmission Testing Start: 01-24-2022 Urine microalbumin profile DTAP,TDAP,TD (2 - Td or Tdap) [facility] Comment on above: Postponed from 10/01 (Declined at this time) Start: 01-12-2022 End: 01-12-2022 Patient encounter procedure 01/12/2022 Office Visit Podiatry Ian Morton, BRIDGET [address] [place] [address] [facility] Start: 12-14-2021 COVID-19 Vaccine (4 - Booster for Moderna series) COVID-19 Vaccine (4 - Booster for Moderna series) [facility] Start: 12-08-2021 End: 12-08-2021 Patient encounter procedure 12/08/2021 Office Visit Podiatry Ian Morton DPM [address] [place] [address] [facility] Start: 10-11-2021 COVID-19 Vaccine (4 - Booster for Moderna series) COVID-19 Vaccine (4 - Booster for Moderna series) [facility] Start: 07-06-2021 Mammography MAMMOGRAM [facility] Start: 07-06-2021 Screening for malign ant neoplasm of breast Mammogram [facility] Start: 05-25-2021 Influenza vaccination Sequenti al Influenza Vaccine (#1) [facility] Start: 2019 Pneumococcal vaccination Pneumococcal Vaccine (1 of 1 - PCV) [facility] Start: 2019 Pneumococcal Vaccine : 50+ (1 of 1 - PCV) Pneumococcal Vaccine: 50+ (1 of 1 - PCV) [facility] Start: 2019 Screening for malign ant neoplasm of colon [facility] Start: 10-01-2017 DTaP/Tdap/Td Vaccine s (2 - Td or Tdap) DTaP/Tdap/Td Vaccines (2 - Td or Tdap) [facility] Start: 10-01-2017 Tetanus vaccination Tetanus: Every 1 0yrs [facility] Start: 10-01-2017 Urine microalbumin profile DTAP,TDAP,TD (2 - Td or Tdap) [facility] Start: 05-25-2017 SEQUENTIAL INFLUENZA VACCINE (#1) SEQUENTIAL INFLUENZA VACCINE (#1) [facility] Work Phone: Start: 2014 COLOGUARD (FIT-DNA) COLOGUARD (FIT-D NA) [facility] Start: [address] COLONOGRAPHY [facility] Start: 2014 FECAL OCCULT BLOOD FECAL OCCULT BLOO D [facility] Start: 2014 Screening for malign ant neoplasm of colon [facility] Start: 2014 SIGMOIDOSCOPY SIGMOIDOSCOPY [facility] Start: 2009 Screening for malign ant neoplasm of breast Mammogram [facility] Start: 1990 Screening for malign ant neoplasm of cervix [facility] Start: 1988 Hepatitis B Vaccine (1 of 3 - 19+ 3-dose series) Hepatitis B Vaccine (1 of 3 - 19+ 3-dose series) [facility] Start: 1988 Hepatitis B Vaccines (1 of 3 - 19+ 3-dose series) Hepatitis B Vaccines (1 of 3 - 19+ 3-dose series) [facility] Start: 1987 Diabetes mellitus screening Diabetes Screening [facility] Start: 1987 Hepatitis C screening Hepatitis C Sc reening [facility] Start: 1987 HIV SCREENING HIV SCREENING [facility] Start: 1984 HIV screening HIV Screening [facility] Start: 1981 Depression screening using PHQ-9 (Patient Health Questionnaire 9) score Depression Screening (PHQ-2/9) [facility] Start: 1972 History and physical examination, annual for health maintenance Wellness Visit [facility] Start: 1969 HEPATITIS B (1 of 3 - 3-dose series) HEPATITIS B (1 of 3 - 3-dose series) [facility] Start: 1969 HIV screening HIV Screening [facility] Start: 1969 Lipid panel Lipid Panel [facility] Start: 1969 Microscopic observat ion Cyto stain Nom (Cvx) PAP SMEAR [facility] Work Phone: Start: 1969 Screening for malign ant neoplasm of cervix Pap Smear [facility] Start: 1969 Screening for malign ant neoplasm of colon [facility] Start: 1969 TETANUS EVERY 10 YR TETANUS EVERY 10 YR [facility] Work Phone: Start: 1969 Yearly Adult Physical Yearly Adult P [facility] Bacteria identified in Urine by Culture Urine Culture Microbiology Routine Acute cystitis with hematuria Ordered: 04/04/2025 [facility] Service Area Work Phone: Comment on above: Ordered: 04/04/2025 End: 01-23-2024 DBT Breast - bilateral screening [facility] Work Phone: Comment on above: ONCE for 1 Occurrenc es starting 01/23/2024 until 01/23/2024 End: 02-28-2026 DBT Breast - bilateral screening NANCY SCREENING W GINGER Radiology Routine Encounter for screening mammogram for malignant neoplasm of breast 1 Occurrences starting 01/29/2025 until 02/28/2026 [facility] Comment on above: 1 Occurrences starti ng 01/29/2025 until 02/28/2026 DBT Breast - bilater al screening NANCY SCREENING W GINGER Radiology Routine Encounter for screening mammogram for malignant neoplasm of breast 02/25/2025 4:45 PM EDT [facility] Work Phone: End: 02-28-2026 DXA Skeletal system.axial Views for bone density DXA-AXIAL SKELETON Radiology Routine Osteopenia, unspecified location Post-menopausal 1 Occurrences starting 01/29/2025 until 02/28/2026 [facility] Comment on above: 1 Occurrences starti ng 01/29/2025 until 02/28/2026 DXA Skeletal system.axial Views for bone density DXA-AXIAL SKELETON Radiology Routine Osteopenia, unspecified location Post-menopausal 02/25/2025 4:48 PM EDT [facility] Work Phone: End: 02-03-2024 DXA-AXIAL SKELETON DXA-AXIAL SKELETON Radiology Routine Post-menopausal 1 Occurrences starting 01/04/2023 until 02/03/2024 [facility] Work Phone: Comment on above: 1 Occurrences starti ng 01/04/2023 until 02/03/2024 DXA-AXIAL SKELETON DXA-AXIAL SKE LETON Radiology Routine Post-menopausal 01/10/2023 4:56 PM EDT [facility] Work Phone: End: 02-07-2025 MG Breast Screening NANCY SCREENING Radiology Routine Encounter for screening mammogram for malignant neoplasm of breast 1 Occurrences starting 01/09/2024 until 02/07/2025 [facility] Work Phone: Comment on above: 1 Occurrences starti ng 01/09/2024 until 02/07/2025 End: 01-14-2023 Screening mammography bi 2-view breast inc cad NANCY SCREENING Radiology Routine Encounter for screening mammogram for malignant neoplasm of breast 1 Occurrences starting 12/15/2021 until 01/14/2023 [facility] Work Phone: Comment on above: 1 Occurrences starti ng 12/15/2021 until 01/14/2023 US Kidney - bilatera l and Urinary bladder [facility] End: 02-07-2025 XR HIP BILATERAL 5V PEL/AP/LAT EACH HIP XR HIP BILATERAL 5V PEL/AP/LAT EACH HIP Radiology Routine Bilateral hip pain 1 Occurrences starting 01/09/2024 until 02/07/2025 [facility] Work Phone: Comment on above: 1 Occurrences starti ng 01/09/2024 until 02/07/2025 XR HIP BILATERAL 5V PEL/AP/LAT EACH HIP XR HIP BILATERAL 5V PEL/AP/LAT EACH HIP Radiology Routine Bilateral hip pain 01/09/2024 10:46 AM EDT [facility] Work Phone: [facility] Immunizations Immunization Date Immunization Notes Care Provider Fa timbo 06-20-2024 influenza, injectabl e, madin alexandria canine kidney, preservative free Angy Francis SPOT WELDER LINE.BREAD WRAPPING MACHINE FEEDER Work Phone: [facility] 06-20-2024 influenza virus vaccine, unspecified formulation Rico Eaton SPOT WELDER LINE-BREAD WRAPPING MACHINE FEEDER Work Phone: [facility] Work Phone: 07-13-2023 influenza virus vaccine, unspecified formulation Angy Francis SPOT WELDER LINE.BREAD WRAPPING MACHINE FEEDER Work Phone: [facility] 07-06-2023 Seasonal, quadrivalent, recombinant, injectable influenza vaccine, preservative free Angy Tito SPOT WELDER LINE.BREAD WRAPPING MACHINE FEEDER Work Phone: [facility] 06-30-2022 Influenza, injectabl e, Madin [place] Canine Kidney, preservative free, quadrivalent Angy Tito SPOT WELDER LINE.BREAD WRAPPING MACHINE FEEDER Work Phone: [facility] 10-01-2021 zoster vaccine recombinant Angy Tito SPOT WELDER LINE.BREAD WRAPPING MACHINE FEEDER Work Phone: [facility] 08-29-2021 measles, mumps and rubella virus vaccine Angy Tito SPOT WELDER LINE.BREAD WRAPPING MACHINE FEEDER Work Phone: [facility] 07-29-2021 measles, mumps and rubella virus vaccine Angy Tito SPOT WELDER LINE.BREAD WRAPPING MACHINE FEEDER Work Phone: [facility] 07-01-2021 zoster vaccine recombinant Angy Tito SPOT WELDER LINE.BREAD WRAPPING MACHINE FEEDER Work Phone: [facility] 06-22-2021 influenza virus vaccine, unspecified formulation Angy Tito SPOT WELDER LINE.BREAD WRAPPING MACHINE FEEDER Work Phone: [facility] 11-01-2020 COVID-19 vaccine, fu ll dose (MODERNA) Angy Tito SPOT WELDER LINE.BREAD WRAPPING MACHINE FEEDER Work Phone: [facility] 10-04-2020 COVID-19 vaccine, fu ll dose (MODERNA) Angy Tito SPOT WELDER LINE.BREAD WRAPPING MACHINE FEEDER Work Phone: [facility] 06-24-2019 influenza virus vaccine, unspecified formulation Angy Tito SPOT WELDER LINE.BREAD WRAPPING MACHINE FEEDER Work Phone: [facility] 11-06-2018 Seasonal, quadrivalent, recombinant, injectable influenza vaccine, preservative free Angy Tito SPOT WELDER LINE.BREAD WRAPPING MACHINE FEEDER Work Phone: [facility] 07-05-2015 influenza virus vaccine, unspecified formulation Angy Tito SPOT WELDER LINE.BREAD WRAPPING MACHINE FEEDER Work Phone: [facility] 03-31-2008 hepatitis B vaccine, pediatric or pediatric/adolescent dosage Angy Tito SPOT WELDER LINE.BREAD WRAPPING MACHINE FEEDER Work Phone: [facility] 03-31-2008 hepatitis B vaccine, unspecified formulation Fartun Damon II, OD Work Phone: [facility] 10-29-2007 hepatitis B vaccine, pediatric or pediatric/adolescent dosage Angy Tito SPOT WELDER LINE.BREAD WRAPPING MACHINE FEEDER Work Phone: [facility] 10-01-2007 hepatitis B vaccine, pediatric or pediatric/adolescent dosage Angy Tito SPOT WELDER LINE.BREAD WRAPPING MACHINE FEEDER Work Phone: [facility] 10-01-2007 tetanus toxoid, reduced diphtheria toxoid, and acellular pertussis vaccine, adsorbed Angy Tito SPOT WELDER LINE.BREAD WRAPPING MACHINE FEEDER Work Phone: [facility] Payers Date Payer Category Payer Self-pay 2024 Managed Care ([facility]) [facility] [id number] 2020 Unknown MMO MMO [employer] [id number] 2020-Present [phone] [address] [place] [address] PPO [id number] 2020 Unknown [id number] 2012 Private Health Insurance 2012 Unknown [id number] [id number]. [id number] 2012 Unknown [id number] 1969 Unknown [id number] 2.16.840.1.872195.3.579. 2 1969 Unknown [id number] ..840.1.059983.3.579. 1969 Unknown [id number] ..840.1.171177.3.579. 2 1969 Unknown [id number] .840.1.943246.3.579. 2 1969 Unknown [id number] 2..840.1.485173.3.579. 1969 Unknown [id number] .840.1.941602.3.579. 1969 Unknown [id number] .840.1.984738.3.579. 1969 Unknown [id number] 840.1.588135.3.579. 1969 Unknown [id number] .840.1.475753.3.579. 1969 Unknown [id number] 840.1.972669.3.579. 1969 Unknown [id number] 840.1.763775.3.579. 1969 Unknown [id number] 840.1.439883.3.579. 1969 Unknown [id number] .840.1.458594.3.579. 1969 Unknown [id number] .840.1.918039.3.579. 1969 Unknown [id number] 840.1.117292.3.579. 2 1969 Unknown [id number] 840.1.065280.3.579. 1969 Unknown [id number] 2.16.840.1.104465.3.579. 2 1969 Unknown [id number] 2.16.840.1.973743.3.579. 2 1969 Unknown [id number] 2.16.840.1.638163.3.579. 2 1969 Unknown [id number] 2.16.840.1.605833.3.579. 2 1969 Unknown [id number] 2.16.840.1.245798.3.579. 2 1969 Unknown [id number] ..840.1.034473.3.579. 1969 Unknown [id number] 2..840.1.340233.3.579. 1969 Unknown [id number] 840.1.730396.3.579. 1969 Unknown [id number] .840.1.058582.3.579. 1969 Unknown [id number] ..840.1.530892.3.579. 1969 Unknown [id number] .840.1.091700.3.579. 2 1969 Unknown [id number] 11.09.840.1.130178.3.579. 1969 Unknown [id number] ..840.1.882584.3.579. 2 1969 Unknown [id number] .16.840.1.331648.3.579. 2 1969 Unknown [id number] .16.840.1.961667.3.579. 2 1969 Unknown [id number] 16.840.1.189400.3.579. 2.1243 1969 Unknown [id number] 2.16.840.1.360249.3.579. 2.1243 Private Health Insurance [id number] Unknown [id number] 2.16.840.1.861439.3.579. 2.462 Unknown [id number] 2.16.840.1.627639.3.579. 2.462 Social History Date Type Detail Facility Start: 04-30-2017 End: 03-03-2025 Tobacco smoking status NHIS Former smoker [facility] Work Phone: Start: 04-30-2017 End: 05-04-2023 Cigarettes smoked current (pack per day) - Reported [facility] Work Phone: Start: 1970 Sex Assigned At Not on file [facility] Work Phone: Start: 11-24-2021 End: 03-03-2025 Tobacco use and exposure Smokeless tobacco non-user [facility] Start: 11-24-2021 End: 01-29-2025 Alcohol intake Current non-drinker of alcohol (finding) [facility] Start: 11-12-2021 End: 02-21-2025 Exposure to SARS-CoV-2 (event) Not sure [facility] End: 04-29-2006 History of tobacco use Current smoker [facility] Start: 12-14-2011 End: 03-03-2025 Tobacco Comment quit 2006 [facility] Start: 1970 Sex Assigned At Female [facility] End: 04-29-2006 History of tobacco use Cigarette Smoker [facility] Start: 05-04-2023 End: 01-09-2024 Tobacco use panel [facility] Work Phone: Start: 08-25-2012 Adult Depression Screening Assessment 0 [facility] Work Phone: Start: 04-13-2020 Gender identity Identifies as female gender (finding) [facility] Start: 04-13-2020 Sexual orientation Heterosexual (finding) [facility] Start: 02-21-2025 Tobacco smoking status NHIS Never smoked tobacco [facility] Work Phone: Start: 03-03-2025 End: 03-22-2025 Alcoholic beverage intake Ex-drinker (finding) [facility] Tobacco smoking stat us MTIS Unknown if ever smoked [facility] Work Phone: Medical Equipment Procedure Code Equipment Code Equipment Origin al Text Equipment Identifier Dates Benny K 0.062in Smooth Dbl End - [id number] Start: 02-22-2022 Comment on above: Description: 2nd toe left foot Will be taken out in the office Clinical Notes 11-24-2021 to 04-04-2025 LUCRECIA Bolton - 04/04/2025 9:40 AM EDTTelephone Encounter - Miloneil MckennaDEBRA - 03/09/2025 8:27 AM EDTTelephone Encounter - Mckenna Rivers MA - 03/09/2025 8:27 AM EDTPatient Instructions Note Date & Type Note Facility 04-04-2025 History of Present illness Narrative 54 y.o. female presents for evaluation of urinary frequency, bladder spasms and dysuria for the past week. Recently treated with Macrobid 1 month ago for UTI which resolved symptoms. Few weeks prior to that she was treated Augmentin for UTI which relieved her symptoms but they then returned shortly after completing course. States that she had intercourse 2 days prior to onset of current symptoms. States she has a history of UTI postcoitally. Denies fever, flank pain, vaginal discharge, vaginal itching, nausea, vomiting, diarrhea or any other associated similar complaint. No concerns for STDs today. Vitals: 04/04/25 0941 BP: (!) 142/92 Pulse: 73 Resp: 14 Temp: 36.3 C (97.4 F) SpO2: 99% RX Allergies[1] Medication Documentation Review Audit Reviewed by LUCRECIA Bolton (Nurse Practitioner) on 04/04/25 at 0947 Medication Order Taking? Sig Documenting Provider Last Dose Status No Medications to Display Medical History[2] Surgical History[3] ROS See HPI Physical Exam Vitals and nursing note reviewed. Constitutional: General: She is not in acute distress. Appearance: Normal appearance. She is not ill-appearing or toxic-appearing. Cardiovascular: Rate and Rhythm: Normal rate and regular rhythm. Abdominal: General: There is no distension. Palpations: Abdomen is soft. Tenderness: There is no abdominal tenderness. There is no right CVA tenderness, left CVA tenderness, guarding or rebound. Genitourinary: General: Normal vulva. Vagina: No vaginal discharge. Comments: Per patient report Skin: General: Skin is warm and dry. Neurological: General: No focal deficit present. Mental Status: She is alert and oriented to person, place, and time. Psychiatric: Mood and Affect: Mood normal. Behavior: Behavior normal. Recent Results (from the past hour) POCT UA (nonautomated w/o microscopy) manually resulted Collection Time: 04/04/25 10:02 AM Result Value Ref Range POC Color, Urine Light-Yellow Straw, Yellow, Light-Yellow POC Appearance, Urine Cloudy (A) Clear POC Glucose, Urine NEGATIVE NEGATIVE mg/dl POC Bilirubin, Urine NEGATIVE NEGATIVE POC Ketones, Urine NEGATIVE NEGATIVE mg/dl POC Specific Otto, Urine <=1.005 1.005 - 1.035 POC Blood, Urine SMALL (1+) (A) NEGATIVE POC PH, Urine 6.0 No Reference Range Established PH POC Protein, Urine NEGATIVE NEGATIVE mg/dl POC Urobilinogen, Urine 0.2 0.2, 1.0 EU/DL Poc Nitrite, Urine NEGATIVE NEGATIVE POC Leukocytes, Urine SMALL (1+) (A) NEGATIVE Assessment/Plan/MDM Nan was seen today for urinary urgency. Diagnoses and all orders for this visit: Acute cystitis with hematuria (Primary) - nitrofurantoin, macrocrystal-monohydrate, (Macrobid) 100 mg capsule; Take 1 capsule (100 mg) by mouth 2 times a day for 7 days. - Urine Culture Urinary frequency - POCT UA (nonautomated w/o microscopy) manually resulted I did offer Cipro today but patient states she prefers not to take it due to side effects and would like to try Macrobid today. Urine sent for culture. Encouraged patient to continue probiotics. Encouraged patient increase water intake, avoid caffeine/energy drinks, void after intercourse, wipe front to back after voiding and bowel movements, avoid baths/hot tubs/pools, avoid tight fitting garments, empty bladder frequently. Patient's clinical presentation is otherwise unremarkable at this time. Patient is discharged with instructions to follow-up with primary care or seek emergency medical attention for worsening symptoms or any new concerns. I did personally review Nan's past medical history, surgical history, social history, as well as family history (when relevant). In this case, I also oversaw the her drug management by reviewing her medication list, allergy list, as well as the medications that I prescribed during the UC course and/or recommended as an out-patient (including possible OTC medications such as acetaminophen, NSAIDs , etc). After reviewing the items above, I did look at previous medical documentation, such as recent hospitalizations, office visits, and/or recent consultations with PCP/specialist. SDOH: Another factor that I considered in Nan's care was her Social Determinants of Health (SDOH). During this UC encounter, she did not have social determinants of health. Those SDOH influencing Nan's care are: none Rico Eaton CNP [facility] [1] No Known Allergies [2] Past Medical History: Diagnosis Date Benign paroxysmal vertigo, unspecified ear BPPV (benign paroxysmal positional vertigo) Cervicalgia Chronic neck pain Other specified abnormal findings of blood chemistry Elevated LFTs Radiculopathy, cervical region Cervical radiculopathy, chronic [3] Past Surgical History: Procedure Laterality Date SECTION, CLASSIC 12/28/2016 Section CHOLECYSTECTOMY 12/28/2016 Cholecystectomy HYSTERECTOMY 12/28/2016 Hysterectomy TONSILLECTOMY 01/01/2017 Tonsillectomy documented in this encounter [facility] Work Phone: 03-09-2025 Telephone encounter Note ----- Message from Lisa Conrad APRN.CNP sent at 03/07/2025 6:21 PM EDT ----- Urine culture was negative. Lisa Conrad APRN.CNP [facility] 03-09-2025 Miscellaneous Notes ----- Message from Lisa Conrad APRN.CNP sent at 03/07/2025 6:21 PM EDT ----- Urine culture was negative. Lisa Conrad APRN.BREAD WRAPPING MACHINE FEEDER documented in this encounter [facility] 03-03-2025 Note HNO ID: [id number] Author: LISA CONRAD APRN.DYANA Service: ? Author Type: Nurse Practitioner Type: Progress Notes Filed: 03/22/2025 20:59 Note Text: Subjective The patient consented to the use of ambient K121 software for draft documentation of the visit consistent with [facility]?s Notice of Privacy Practices. UTI Nan Frey is a 54-year-old female presenting with dysuria and urinary frequency. Nan was diagnosed with a UTI at Urgent Care in [place] approximately 10 days ago and was prescribed Augmentin for 7 days, which she completed. She reports feeling well until this morning when she experienced dysuria and urinary frequency. She describes the pain as occurring towards the end of micturition and notes a sensation of bladder pressure. She denies hematuria, abdominal pain, nausea, or emesis. She reports chronic lower back pain and constipation, with no recent changes in these symptoms. She has a history of recurrent UTIs, with the last episode occurring in March of the previous year. She also reports pelvic pressure and dyspareunia, which she attributes to a hysterectomy performed 25 years ago. She has an upcoming appointment with a urogynecologist in April to address these concerns. She denies current use of prophylactic antibiotics post-coitus, a regimen she found effective in the past. She recently underwent a colonoscopy in August, which was reportedly normal. She occasionally uses Miralax for constipation but does not take it regularly. She also reports sporadic episodes of postprandial cramping and diarrhea, occurring 3-4 times after eating certain foods, but denies consistent symptoms. I reviewed past medical, surgical, social, and family histories today and updated chart. Allergies, chronic medications, and supplements were also reviewed. PAST MEDICAL HISTORY Diagnosis Date Anxiety state NEGATIVE HISTORY OF No TB, DM, CA, heart dis, pnuemonia PAST SURGICAL HISTORY Procedure Laterality Date CHOLECYSTECTOMY HYSTEROSCOPY, DIAGNOSTIC (SEPARATE 1998 Hysteroscopy PAST SURGICAL HISTORY OF 1995, 1999 C-Sect x 2 TONSILLECTOMY HX Bilateral 09/24/2003 TOTAL ABDOMINAL HYSTERECT W/WO RMVL TUBE OVARY 2001 Hysterectomy, LEVI ALLERGIES Mobic [Meloxicam] MEDICATIONS No prescriptions on file. FAMILY HISTORY Problem Relation Age of Onset Hypertension Mother Hypertension Father Lipids Father other (stomach cancer) Father Esoph Ca (?) other (barretts es) Father Tremor Father other (memory probl) Father Hypertension Brother Dementia Paternal Grandmother 90s Heart Attack Paternal Grandfather 58 Social History Tobacco Use Smoking status: Former Current packs/day: 0.00 Types: Cigarettes Quit date: 04/29/2006 Years since quittin.9 Smokeless tobacco: Never Tobacco comments: quit 2006 Vaping Use Vaping status: Never Used Substance Use Topics Alcohol use: Not Currently Comment: very rarely Drug use: Never Review of Systems Genitourinary: Positive for dysuria. Gastrointestinal: (+) constipation, (+) abdominal cramping, (+) diarrhea, (-) abdominal pain, (-) nausea, (-) vomiting Genitourinary: (+) dysuria, (+) urinary frequency, (+) suprapubic pressure, (+) postcoital discomfort, (-) gross hematuria Musculoskeletal: (+) low back pain Objective BP 122/68 Pulse 65 Temp (Src) 97.4 (Oral) Resp 19 Ht 5' 7 (1.70m) Wt 235 lb (106.6kg) SpO2 96% BMI 36.80 kg/(m2). Physical Exam Constitutional: Appearance: Normal appearance. She is not toxic-appearing. HENT: Mouth/Throat: Lips: [place]. Mouth: Mucous membranes are moist. Pharynx: Oropharynx is clear. Eyes: General: No scleral icterus. Cardiovascular: Rate and Rhythm: Normal rate and regular rhythm. Heart sounds: Normal heart sounds. No murmur heard. Pulmonary: Effort: Pulmonary effort is normal. Breath sounds: Normal breath sounds. No wheezing or rales. Abdominal: General: Bowel sounds are normal. There is no distension or abdominal bruit. Palpations: Abdomen is soft. There is no hepatomegaly, splenomegaly or mass. Tenderness: There is no abdominal tenderness. There is no right CVA tenderness or left CVA tenderness. Musculoskeletal: Right lower leg: No edema. Left lower leg: No edema. Skin: General: Skin is warm and dry. Findings: No bruising or rash. Neurological: General: No focal deficit present. Mental Status: She is alert and oriented to person, place, and time. Sensory: Sensation is intact. Motor: Motor function is intact. Coordination: Coordination is intact. Psychiatric: Attention and Perception: Attention and perception normal. Mood and Affect: Mood and affect normal. Speech: Speech normal. Behavior: Behavior normal. Behavior is cooperative. Thought Content: Thought content normal. Labs: (Today) UA: - Blood: Large amount - WBC: Small amount UA ( [facility]): - Leukocytes: Large amou (more content not included)... [facility] 03-03-2025 History of Present illness Narrative Subjective The patient consented to the use of ambient AI software for draft documentation of the visit consistent with [facility] s Notice of Privacy Practices. UTI Nan Frey is a 54-year-old female presenting with dysuria and urinary frequency. Nan was diagnosed with a UTI at Urgent Care in [place] approximately 10 days ago and was prescribed Augmentin for 7 days, which she completed. She reports feeling well until this morning when she experienced dysuria and urinary frequency. She describes the pain as occurring towards the end of micturition and notes a sensation of bladder pressure. She denies hematuria, abdominal pain, nausea, or emesis. She reports chronic lower back pain and constipation, with no recent changes in these symptoms. She has a history of recurrent UTIs, with the last episode occurring in March of the previous year. She also reports pelvic pressure and dyspareunia, which she attributes to a hysterectomy performed 25 years ago. She has an upcoming appointment with a urogynecologist in April to address these concerns. She denies current use of prophylactic antibiotics post-coitus, a regimen she found effective in the past. She recently underwent a colonoscopy in August, which was reportedly normal. She occasionally uses Miralax for constipation but does not take it regularly. She also reports sporadic episodes of postprandial cramping and diarrhea, occurring 3-4 times after eating certain foods, but denies consistent symptoms. I reviewed past medical, surgical, social, and family histories today and updated chart. Allergies, chronic medications, and supplements were also reviewed. PAST MEDICAL HISTORY Diagnosis Date Anxiety state NEGATIVE HISTORY OF No TB, DM, CA, heart dis, pnuemonia PAST SURGICAL HISTORY Procedure Laterality Date CHOLECYSTECTOMY HYSTEROSCOPY, DIAGNOSTIC (SEPARATE 1998 Hysteroscopy PAST SURGICAL HISTORY OF 1995, 1999 C-Sect x 2 TONSILLECTOMY HX Bilateral 09/24/2003 TOTAL ABDOMINAL HYSTERECT W/WO RMVL TUBE OVARY 2001 Hysterectomy, LEVI ALLERGIES Mobic [Meloxicam] MEDICATIONS No prescriptions on file. FAMILY HISTORY Problem Relation Age of Onset Hypertension Mother Hypertension Father Lipids Father other (stomach cancer) Father Esoph Ca (?) other (barretts es) Father Tremor Father other (memory probl) Father Hypertension Brother Dementia Paternal Grandmother 90s Heart Attack Paternal Grandfather 58 Social History Tobacco Use Smoking status: Former Current packs/day: 0.00 Types: Cigarettes Quit date: 04/29/2006 Years since quittin.9 Smokeless tobacco: Never Tobacco comments: quit 2006 Vaping Use Vaping status: Never Used Substance Use Topics Alcohol use: Not Currently Comment: very rarely Drug use: Never Review of Systems Genitourinary: Positive for dysuria. Gastrointestinal: (+) constipation, (+) abdominal cramping, (+) diarrhea, (-) abdominal pain, (-) nausea, (-) vomiting Genitourinary: (+) dysuria, (+) urinary frequency, (+) suprapubic pressure, (+) postcoital discomfort, (-) gross hematuria Musculoskeletal: (+) low back pain Objective BP 122/68 Pulse 65 Temp (Src) 97.4 (Oral) Resp 19 Ht 5' 7 (1.70m) Wt 235 lb (106.6kg) SpO2 96% BMI 36.80 kg/(m^2). Physical Exam Constitutional: Appearance: Normal appearance. She is not toxic-appearing. HENT: Mouth/Throat: Lips: [place]. Mouth: Mucous membranes are moist. Pharynx: Oropharynx is clear. Eyes: General: No scleral icterus. Cardiovascular: Rate and Rhythm: Normal rate and regular rhythm. Heart sounds: Normal heart sounds. No murmur heard. Pulmonary: Effort: Pulmonary effort is normal. Breath sounds: Normal breath sounds. No wheezing or rales. Abdominal: General: Bowel sounds are normal. There is no distension or abdominal bruit. Palpations: Abdomen is soft. There is no hepatomegaly, splenomegaly or mass. Tenderness: There is no abdominal tenderness. There is no right CVA tenderness or left CVA tenderness. Musculoskeletal: Right lower leg: No edema. Left lower leg: No edema. Skin: General: Skin is warm and dry. Findings: No bruising or rash. Neurological: General: No focal deficit present. Mental Status: She is alert and oriented to person, place, and time. Sensory: Sensation is intact. Motor: Motor function is intact. Coordination: Coordination is intact. Psychiatric: Attention and Perception: Attention and perception normal. Mood and Affect: Mood and affect normal. Speech: Speech normal. Behavior: Behavior normal. Behavior is cooperative. Thought Content: Thought content normal. Labs: (Today) UA: - Blood: Large amount - WBC: Small amount UA ([facility]): - Leukocytes: Large amount - Nitrites: Negative - Blood: 3+ Assessment/Plan: 1. Acute cystitis with hematuria (N30.01) Dysuria (R30.0) Recent UTI treated with Augmentin for 7 days; symptoms of dysuria and urinary frequency have recurred. Previous UA from [facility] showed large leukocytes, no nitrites, and 3+ blood. Current UA shows large blood and small leukocytes. - Ordered urine culture. - Initiated Macrobid. - Follow-up with Dr. Carroll in April for further evaluation. 2. Chronic constipation (K59.09) Chronic constipation with intermittent episodes of cramping and diarrhea postprandially. Recent colonoscopy in August was normal. - Discussed potential benefits of daily fiber supplement and probiotic to maintain regular bowel movements. 3. S/P hysterectomy (Z90.710) Complete hysterectomy performed 25 years ago; potential contributing factor to recurrent UTIs due to hormonal changes and possible pelvic organ prolapse. - Continue monitoring for recurrent UTIs. Lisa Conrad APRN.BREAD WRAPPING MACHINE FEEDER documented in this encounter [facility] 03-03-2025 Telephone encounter Note Reason for call: UTI symptoms Outcome: Conferenced to the Appointment Center for scheduling. Express Care/Urgent Care advised if no appointments available. ER if worse. Reason for Disposition Age > 50 years Answer Assessment - Initial Assessment Questions 1. SEVERITY: discomfort at the end of urination, cramping; 5/10 2. FREQUENCY: increased 4. ONSET: this morning 5. FEVER: denies 6. PAST UTI: yes, one week ago. She was seen at a non-[facility] Urgent Care and given a prescription for Augmentin. She took the last dose several days ago and was feeling better until this morning 7. CAUSE: UTI suspected Protocols used: Urination Pain - [id number] [facility] 03-03-2025 Miscellaneous Notes Reason for call: UTI symptoms Outcome: Conferenced to the Appointment Center for scheduling. Express Care/Urgent Care advised if no appointments available. ER if worse. Reason for Disposition Age > 50 years Answer Assessment - Initial Assessment Questions 1. SEVERITY: discomfort at the end of urination, cramping; 01/31 2. FREQUENCY: increased 4. ONSET: this morning 5. FEVER: denies 6. PAST UTI: yes, one week ago. [facility] given a [facility] for Augmentin. She took the last dose several days ago and was feeling better until this morning 7. CAUSE: UTI suspected Protocols used: Urination Pain - [id number] documented in this encounter [facility] 02-25-2025 History of Present illness Narrative Radiology Service Progress Note PATIENT NAME: Nan Frey DATE OF SERVICE: February 25, 2025 TIME: 4:09 PM PATIENT IDENTITY VERIFICATION COMPLETED USING TWO (2) IDENTIFIERS: Name and Date of confirmed by patient verbally. FALL SCREENING: Has the patient had 2 falls in the last year or 1 fall with injury or currently using an Ambulatory Assistive Device (Walker, Cane, Wheelchair, Crutches, etc.)? No PATIENT GENDER DATA: Assigned female at . status: : No status: NO. PATIENT RELEVANT IMPLANT DATA REVIEWED: Not Applicable PATIENT PRESENTS WITH AN IMPLANTABLE OR ATTACHED HYSTER MACHINE OPERATOR: No RADIOLOGY DEPARTMENT: Bone Density PERIPHERAL IV DATA: Not applicable SIGNED BY: RT Flakita(R) February 25, 2025 4:09 PM documented in this encounter [facility] 02-25-2025 Note HNO ID: [id number] Author: EMILY OLIVAREZ RT (R) Service: Radiology Author Type: Technologist Type: Progress Notes Filed: 02/25/2025 16:09 Note Text: Radiology Service Progress Note PATIENT NAME: Nan Frey DATE OF SERVICE: February 25, 2025 TIME: 4:09 PM PATIENT IDENTITY VERIFICATION COMPLETED USING TWO (2) IDENTIFIERS: Name and Date of confirmed by patient verbally. FALL SCREENING: Has the patient had 2 falls in the last year or 1 fall with injury or currently using an Ambulatory Assistive Device (Walker, Cane, Wheelchair, Crutches, etc.)? No PATIENT GENDER DATA: Assigned female at . status: : No status: NO. PATIENT RELEVANT IMPLANT DATA REVIEWED: Not Applicable PATIENT PRESENTS WITH AN IMPLANTABLE OR ATTACHED HYSTER MACHINE OPERATOR: No RADIOLOGY DEPARTMENT: Bone Density PERIPHERAL IV DATA: Not applicable SIGNED BY: JAK Boggs) February 25, 2025 4:09 PM [facility] 02-25-2025 History of Present illness Narrative Radiology Service Progress Note PATIENT NAME: Nan Frey DATE OF SERVICE: February 25, 2025 TIME: 4:09 PM PATIENT IDENTITY VERIFICATION COMPLETED USING TWO (2) IDENTIFIERS: Name and Date of confirmed by patient verbally. FALL SCREENING: Has the patient had 2 falls in the last year or 1 fall with injury or currently using an Ambulatory Assistive Device (Walker, Cane, Wheelchair, Crutches, etc.)? No PATIENT GENDER DATA: Assigned female at . status: : No status: N/A PATIENT RELEVANT IMPLANT DATA REVIEWED: Not Applicable PATIENT PRESENTS WITH AN IMPLANTABLE OR ATTACHED HYSTER MACHINE OPERATOR: No RADIOLOGY DEPARTMENT: Mammography PERIPHERAL IV DATA: Not applicable SIGNED BY: JAK Boggs) February 25, 2025 4:09 PM documented in this encounter [facility] 02-25-2025 Note HNO ID: [id number] Author: OLIVAREZ, EMILY, RT(R) Service: Radiology Author Type: Technologist Type: Progress Notes Filed: 02/25/2025 16:09 Note Text: Radiology Service Progress Note PATIENT NAME: Nan Frey DATE OF SERVICE: February 25, 2025 TIME: 4:09 PM PATIENT IDENTITY VERIFICATION COMPLETED USING TWO (2) IDENTIFIERS: Name and Date of confirmed by patient verbally. FALL SCREENING: Has the patient had 2 falls in the last year or 1 fall with injury or currently using an Ambulatory Assistive Device (Walker, Cane, Wheelchair, Crutches, etc.)? No PATIENT GENDER DATA: Assigned female at . status: : No status: N/A PATIENT RELEVANT IMPLANT DATA REVIEWED: Not Applicable PATIENT PRESENTS WITH AN IMPLANTABLE OR ATTACHED HYSTER MACHINE OPERATOR: No RADIOLOGY DEPARTMENT: Mammography PERIPHERAL IV DATA: Not applicable SIGNED BY: RT Flakita(R) February 25, 2025 4:09 PM [facility] 02-21-2025 History of Present illness Narrative 54 y.o. female presents for evaluation of pelvic pressure and painful urination that began 4 days ago. Patient denies fever, nausea, vomiting, flank pains, vaginal discharge/itching/lesions or other constitutional signs and symptoms. No concerns for or STD today. Patient reports similar episodes in the past diagnosed as urinary tract infections. No other complaints. Vitals: 02/21/25 0917 BP: (!) 150/91 Pulse: 93 Resp: 15 Temp: 36.9 C (98.4 F) SpO2: 100% RX Allergies[1] Medication Documentation Review Audit Reviewed by Margareth Graham MA (Medical Secretary Teacher) on 02/21/25 at 0917 Medication Order Taking? Sig Documenting Provider Last Dose Status No Medications to Display Medical History[2] Surgical History[3] ROS See HPI Physical Exam Vitals and nursing note reviewed. Constitutional: General: She is not in acute distress. Appearance: Normal appearance. She is not ill-appearing or toxic-appearing. Cardiovascular: Rate and Rhythm: Normal rate and regular rhythm. Abdominal: General: There is no distension. Palpations: Abdomen is soft. Tenderness: There is abdominal tenderness in the suprapubic area. There is no right CVA tenderness, left CVA tenderness, guarding or rebound. Genitourinary: General: Normal vulva. Vagina: No vaginal discharge. Comments: Per pt report Skin: General: Skin is warm and dry. Neurological: General: No focal deficit present. Mental Status: She is alert and oriented to person, place, and time. Psychiatric: Mood and Affect: Mood normal. Behavior: Behavior normal. Recent Results (from the past hour) POCT UA (nonautomated w/o microscopy) manually resulted Collection Time: 02/21/25 9:51 AM Result Value Ref Range POC Color, Urine Yellow Straw, Yellow, Light-Yellow POC Appearance, Urine Cloudy (A) Clear POC Glucose, Urine NEGATIVE NEGATIVE mg/dl POC Bilirubin, Urine NEGATIVE NEGATIVE POC Ketones, Urine NEGATIVE NEGATIVE mg/dl POC Specific [place], Urine 1.010 1.005 - 1.035 POC Blood, Urine LARGE (3+) (A) NEGATIVE POC PH, Urine 5.5 No Reference Range Established PH POC Protein, Urine 30 (1+) (A) NEGATIVE mg/dl POC Urobilinogen, Urine 0.2 0.2, 1.0 EU/DL Poc Nitrite, Urine NEGATIVE NEGATIVE POC Leukocytes, Urine LARGE (3+) (A) NEGATIVE Assessment/Plan/MDM Nan was seen today for urinary frequency. Diagnoses and all orders for this visit: Acute cystitis with hematuria (Primary) - POCT UA (nonautomated w/o microscopy) manually resulted - amoxicillin-clavulanate (Augmentin) 875-125 mg tablet; Take 1 tablet by mouth 2 times a day for 7 days. Encouraged patient increase water intake, avoid caffeine/energy drinks, void after intercourse, wipe front to back after voiding and bowel movements, avoid baths/hot tubs/pools, avoid tight fitting garments, empty bladder frequently. Patient's clinical presentation is otherwise unremarkable at this time. Patient is discharged with instructions to follow-up with primary care or seek emergency medical attention for worsening symptoms or any new concerns. I did personally review Nan's past medical history, surgical history, social history, as well as family history (when relevant). In this case, I also oversaw the her drug management by reviewing her medication list, allergy list, as well as the medications that I prescribed during the UC course and/or recommended as an out-patient (including possible OTC medications such as acetaminophen, NSAIDs , etc). After reviewing the items above, I did look at previous medical documentation, such as recent hospitalizations, office visits, and/or recent consultations with PCP/specialist. SDOH: Another factor that I considered in Nan's care was her Social Determinants of Health (SDOH). During this UC encounter, she did not have social determinants of health. Those SDOH influencing Nan's care are: none Rico Eaton CNP [facility] [phone] [1] No Known Allergies [2] Past Medical History: Diagnosis Date Benign paroxysmal vertigo, unspecified ear BPPV (benign paroxysmal positional vertigo) Cervicalgia Chronic neck pain Other specified abnormal findings of blood chemistry Elevated LFTs Radiculopathy, cervical region Cervical radiculopathy, chronic [3] Past Surgical History: Procedure Laterality Date SECTION, CLASSIC 12/28/2016 Section CHOLECYSTECTOMY 12/28/2016 Cholecystectomy HYSTERECTOMY 12/28/2016 Hysterectomy TONSILLECTOMY 01/01/2017 Tonsillectomy documented in this encounter [facility] Work Phone: 02-09-2025 Telephone encounter Note Patient is informed Fatoumata Palomares MA [facility] 02-09-2025 Telephone encounter Note ----- Message from Angy Francis APRN.CNP sent at 02/09/2025 10:49 AM EDT ----- Lipids look good Vit d wnl CBC and CMP normal [facility] 02-09-2025 Miscellaneous Notes Patient is informed Fatoumata Palomares MA ----- Message from Angy Francis APRN.CNP sent at 02/09/2025 10:49 AM EDT ----- Lipids look good Vit d wnl CBC and CMP normal documented in this encounter [facility] 01-29-2025 Instructions Angy Francis APRN.DYANA - 01/29/2025 3:57 PM EDT BONE MINERAL DENSITY PATIENT INSTRUCTIONS ======== Bone mineral density testing measures the amount of calcium in certain parts of your bones. This information determines how strong your bones are. The test is used to detect osteoporosis, a disease in which the bone's mineral content and density are low, increasing a person's risk of fractures. The lumbar spine (lower back) and the hip are the skeletal sites usually examined. For the test, remember that: 1. You cannot take this test if you are . 2. Eat a normal diet on the day of the test. 3. Take your medications as you normally would. 4. DO NOT take calcium supplements (such as Tums) for 24 hours before the test. 5. On the day of the test, leave valuables (jewelry or credit cards) at home. 6. The test should be performed prior to oral, rectal or IV contrast studies, or at least 7 days after any of these studies. For the test, you may be asked to wear a hospital gown. You will lie on your back, on a padded table, in a comfortable position. Generally, you can resume your usual activities immediately. documented in this encounter [facility] 01-29-2025 History of Present illness Narrative This note was created using Animated Dynamicsriter. Subjective Nan Frey is a 54 year old female here today for WAE. Patient denies changes in health since last office visit. Reports feeling well. Denies concerns or complaints today. I reviewed patients past medical, surgical, social, and family histories today and updated chart. Allergies, chronic medications, and supplements were also reviewed and list is now up to date. Annual Wellness Exam: - No changes in health since last visit. - Recent trip to [place]. - Plans to visit [place] and [place] in June. - Denies fevers, chills, cough, dyspnea, chest pain, palpitations, edema, headaches, dizziness, skin lesions, bruising, bleeding, nausea, emesis, diarrhea, hematochezia, hematuria, abdominal pain, dysphagia, heartburn, sore throat, voice changes, or night sweats. - Denies varicose veins. - No longer taking multivitamin or omega-3 fish oil. - Takes ibuprofen PRN. Allergies: - Takes Xyzal daily for sneezing and pruritus oculi. Colonoscopy: - Last colonoscopy in August; polyps removed by Dr. Neely. Skin Cancer Screening: - Last screening was last year; needs to reschedule upcoming appointment. DEXA Scan: - Last DEXA scan in December 2022 showed osteopenia. Hysterectomy: - Total hysterectomy at age 30 due to endometriosis; ovaries removed. Weight Management: - Weight: 233 lbs. - Gained back 60 lbs of the 80 lbs lost 7-8 years ago. - Previously ran 15 miles/week; no longer running due to joint pain in feet and hips. - Increased steps and monitored diet in September; lost 5 lbs in 3 months but became discouraged. - Currently not exercising regularly; only walking and doing house cleaning and mowing. Neck Pain: - Chronic neck pain managed with animal care worker and monthly massage therapy. - Occasional numbness and tingling associated with neck pain. Hip Pain: - Persistent hip pain; previous X-ray showed no abnormalities. - No significant changes in health status since last visit. - No fevers, chills, cough, shortness of breath, chest pain, palpitations, or edema. - No headaches, dizziness, or unusual skin lesions. - No bruising, bleeding, nausea, vomiting, diarrhea, or hematuria. - No dysphagia, heartburn, sore throat, or voice changes. - No night sweats. - No significant joint pain; managed with chiropractic and massage therapy. - No significant edema; advised use of compression socks if needed. Preventative; she is due for her mammogram. She is not exercising. She reports she is trying to walk. Colonoscopy 08/29/24, follow up [address] Neely. ALLERGIES Allergen Reactions Mobic [Meloxicam] Swelling legs Current Outpatient Medications Medication Sig Dispense Refill polymyxin B-trimethoprim (POLYTRIM) 10,000 unit- 1 mg/mL ophthalmic solution Use 1 Drop in the right eye four times daily. (Patient not taking: Reported on 12/17/2024) 10 mL 0 multivitamin tablet Take 1 tablet by mouth. (Patient not taking: Reported on 05/30/2024) omega-3 fatty acids/fish oil (FISH OIL-OMEGA-3 FATTY ACIDS) 300-1,000 mg cap Take 2 capsules by mouth. (Patient not taking: Reported on 05/30/2024) ibuprofen (MOTRIN) 200 mg tablet Take 200 mg by mouth every 6 hours as needed. (Patient not taking: Reported on 05/30/2024) No current facility-administered medications for this visit. ACTIVE PROBLEM LIST Regular Astigmatism Presbyopia Hypermetropia Anxiety Spasm of Muscle PAST MEDICAL HISTORY Diagnosis Date Anxiety state NEGATIVE HISTORY OF No TB, DM, CA, heart dis, pnuemonia PAST SURGICAL HISTORY Procedure Laterality Date CHOLECYSTECTOMY HYSTEROSCOPY, DIAGNOSTIC (SEPARATE 1998 Hysteroscopy PAST SURGICAL HISTORY OF 1995, 1999 C-Sect x 2 TONSILLECTOMY HX Bilateral 09/24/2003 TOTAL ABDOMINAL HYSTERECT W/WO RMVL TUBE OVARY 2001 Hysterectomy, LEVI Social History Tobacco Use Smoking status: Former Current packs/day: 0.00 Types: Cigarettes Quit date: 04/29/2006 Years since quittin.7 Smokeless tobacco: Never Tobacco comments: quit 2006 Vaping Use Vaping status: Never Used Substance Use Topics Alcohol use: No Comment: very rarely Drug use: No Family History Problem Relation Age of Onset Hypertension Mother Hypertension Father Lipids Father other (stomach cancer) Father Esoph Ca (?) other (barretts es) Father Tremor Father other (memory probl) Father Hypertension Brother Dementia Paternal Grandmother 90s Heart Attack Paternal Grandfather 58 . Review of Systems Constitutional: Negative for activity change, appetite change, chills, diaphoresis, fatigue, fever and unexpected weight change. HENT: Positive for sneezing. Negative for congestion, dental problem, ear pain, postnasal drip, rhinorrhea, sinus pressure, sinus pain, sore throat and trouble swallowing. Eyes: Positive for itching. Negative for photophobia and visual disturbance. Respiratory: Negative for cough, chest tightness, shortness of breath and wheezing. Cardiovascular: Negative for chest pain, palpitations and leg swelling. Gastrointestinal: Negative for abdominal pain, blood in stool, constipation, diarrhea, nausea and vomiting. Endocrine: Negative. Genitourinary: Negative for difficulty urinating, dysuria and hematuria. Musculoskeletal: Positive for arthralgias and neck pain. Negative for back pain and myalgias. Chronic stable Left hip pain stable Skin: Negative. Allergic/Immunologic: Negative for environmental allergies and food allergies. Neurological: Negative for dizziness, weakness and headaches. Hematological: Negative. Negative for adenopathy. Does not bruise/bleed easily. Psychiatric/Behavioral: Negative for decreased concentration, dysphoric mood and sleep disturbance. The patient is not nervous/anxious. Objective 01/29/25 1513 BP: 118/78 Pulse: 73 Temp: 36.6 C (97.9 F) SpO2: 99% Weight: 105.9 kg (233 lb 6.4 oz) Height: 170.2 cm (5' 7) There were no vitals taken for this visit. Physical Exam Vitals and nursing note reviewed. Constitutional: General: She is not in acute distress. Appearance: Normal appearance. She is not ill-appearing or diaphoretic. HENT: Head: Normocephalic and atraumatic. Right Ear: External ear normal. Left Ear: External ear normal. Nose: Nose normal. No congestion or rhinorrhea. Mouth/Throat: Pharynx: No oropharyngeal exudate. Eyes: General: Lids are normal. No scleral icterus. Right eye: No discharge. Left eye: No discharge. Conjunctiva/sclera: Conjunctivae normal. Pupils: Pupils are equal, round, and reactive to light. Neck: Vascular: Normal carotid pulses. No carotid bruit. Cardiovascular: Rate and Rhythm: Normal rate and regular rhythm. Pulses: Normal pulses. Heart sounds: Normal heart sounds, S1 normal and S2 normal. No murmur heard. No friction rub. No gallop. Pulmonary: Effort: Pulmonary effort is normal. No accessory muscle usage or respiratory distress. Breath sounds: Normal breath sounds. No decreased breath sounds, wheezing, rhonchi or rales. Chest: Chest wall: No tenderness. Abdominal: General: Bowel sounds are normal. There is no distension. Palpations: Abdomen is soft. Tenderness: There is no abdominal tenderness. Musculoskeletal: General: No tenderness. Normal range of motion. Cervical back: Normal range of motion and neck supple. Right lower leg: No edema. Left lower leg: No edema. Skin: General: Skin is warm and dry. Coloration: Skin is not pale. Findings: No erythema or rash. Nails: There is no clubbing. Neurological: General: No focal deficit present. Mental Status: She is alert and oriented to person, place, and time. Motor: No abnormal muscle tone. Coordination: Coordination normal. Deep Tendon Reflexes: Reflexes are normal and symmetric. Psychiatric: Attention and Perception: Attention and perception normal. Mood and Affect: Mood normal. Speech: Speech normal. Behavior: Behavior normal. Behavior is cooperative. Thought Content: Thought content normal. Cognition and Memory: Cognition and memory normal. Judgment: Judgment normal. Assessment and Plan ASSESSMENT/PLAN: 1. Wellness examination - ICD9: V70.0, ICD10: Z00.00 (primary diagnosis) - Counseled on healthy diet and regular exercise - Discussed need and benefit for weight loss. BMI 36.56 kg/(m^2) - Breast cancer screening - ordered mammogram - Bone mineral density ordered - Counseled on alcohol intake and health risks - Follow up for annual exam in one year - Ordered CBC, CMP, lipid panel, and vitamin D level. - Removed thyroid screening from lab orders due to insurance coverage issues. - Patient to follow up as needed. 2. Osteopenia, unspecified location - ICD9: 733.90, ICD10: M85.80 - Last DEXA scan in December 2022 showed osteopenia. - Ordered repeat DEXA scan. - Advised on importance of weight-bearing exercise and adequate calcium and vitamin D intake. - set up for BMD AP Spine and Hip Unilateral - Reviewed the need for Calcium and Vitamin D supplements and weight bearing exercise as tolerated - DXA-AXIAL SKELETON 3. Post-menopausal - ICD9: V49.81, ICD10: Z78.0 - Status post total hysterectomy with bilateral oophorectomy for endometriosis 25 years ago. - Discussed importance of bone health and regular screenings. - DXA-AXIAL SKELETON 4. Vitamin D deficiency - ICD9: 268.9, ICD10: E55.9 - Previously on vitamin D supplementation; currently discontinued. - Ordered vitamin D level to assess current status. - Will resume supplementation based on lab results. - VITAMIN D 25 HYDROXY 5. Encounter for screening for diabetes mellitus - ICD9: V77.1, ICD10: Z13.1 - COMPREHENSIVE METABOLIC PANEL 6. Screening for deficiency anemia - ICD9: V78.1, ICD10: Z13.0 - COMPLETE BLOOD COUNT 7. Screening for lipid disorders - ICD9: V77.91, ICD10: Z13.220 - LIPID PANEL, FASTING 8. Encounter for screening mammogram for malignant neoplasm of breast - ICD9: V76.12, ICD10: Z12.31 - NANCY SCREENING W GINGER 9. Class 2 obesity without serious comorbidity with body mass index (BMI) of 36.0 to 36.9 in adult, unspecified obesity type - ICD9: 278.00, V85.36, ICD10: E66.812, Z68.36 - Current weight 233 lbs; BMI 36.3. - Discussed importance of regular physical activity and dietary modifications. - Encouraged to increase daily walking and monitor dietary intake. - Patient expressed frustration with weight gain; provided support and resources for weight management. Stable Angy Francis APRN.BREAD WRAPPING MACHINE FEEDER documented in this encounter [facility] 01-29-2025 Note HNO ID: [id number] Author: ANGY FRANCIS APRN.BREAD WRAPPING MACHINE FEEDER Service: ? Author Type: Nurse Practitioner Type: Progress Notes Filed: 01/29/2025 16:16 Note Text: This note was created using NoteWriter. Subjective Nan Frey is a 54 year old female here today for WAE. Patient denies changes in health since last office visit. Reports feeling well. Denies concerns or complaints today. I reviewed patients past medical, surgical, social, and family histories today and updated chart. Allergies, chronic medications, and supplements were also reviewed and list is now up to date. Annual Wellness Exam: - No changes in health since last visit. - Recent trip to [place]. - Plans to visit [place] and [place] in June. - Denies fevers, chills, cough, dyspnea, chest pain, palpitations, edema, headaches, dizziness, skin lesions, bruising, bleeding, nausea, emesis, diarrhea, hematochezia, hematuria, abdominal pain, dysphagia, heartburn, sore throat, voice changes, or night sweats. - Denies varicose veins. - No longer taking multivitamin or omega-3 fish oil. - Takes ibuprofen PRN. Allergies: - Takes Xyzal daily for sneezing and pruritus oculi. Colonoscopy: - Last colonoscopy in August; polyps removed by Dr. Neely. Skin Cancer Screening: - Last screening was last year; needs to reschedule upcoming appointment. DEXA Scan: - Last DEXA scan in December 2022 showed osteopenia. Hysterectomy: - Total hysterectomy at age 30 due to endometriosis; ovaries removed. Weight Management: - Weight: 233 lbs. - Gained back 60 lbs of the 80 lbs lost 7-8 years ago. - Previously ran 15 miles/week; no longer running due to joint pain in feet and hips. - Increased steps and monitored diet in September; lost 5 lbs in 3 months but became discouraged. - Currently not exercising regularly; only walking and doing house cleaning and mowing. Neck Pain: - Chronic neck pain managed with animal care worker and monthly massage therapy. - Occasional numbness and tingling associated with neck pain. Hip Pain: - Persistent hip pain; previous X-ray showed no abnormalities. - No significant changes in health status since last visit. - No fevers, chills, cough, shortness of breath, chest pain, palpitations, or edema. - No headaches, dizziness, or unusual skin lesions. - No bruising, bleeding, nausea, vomiting, diarrhea, or hematuria. - No dysphagia, heartburn, sore throat, or voice changes. - No night sweats. - No significant joint pain; managed with chiropractic and massage therapy. - No significant edema; advised use of compression socks if needed. Preventative; she is due for her mammogram. She is not exercising. She reports she is trying to walk. Colonoscopy 08/29/24, follow up [address] Neely. ALLERGIES Allergen Reactions Mobic [Meloxicam] Swelling legs Current Outpatient Medications Medication Sig Dispense Refill polymyxin B-trimethoprim (POLYTRIM) 10,000 unit- 1 mg/mL ophthalmic solution Use 1 Drop in the right eye four times daily. (Patient not taking: Reported on 12/17/2024) 10 mL 0 multivitamin tablet Take 1 tablet by mouth. (Patient not taking: Reported on 05/30/2024) omega-3 fatty acids/fish oil (FISH OIL-OMEGA-3 FATTY ACIDS) 300-1,000 mg cap Take 2 capsules by mouth. (Patient not taking: Reported on 05/30/2024) ibuprofen (MOTRIN) 200 mg tablet Take 200 mg by mouth every 6 hours as needed. (Patient not taking: Reported on 05/30/2024) No current facility-administered medications for this visit. ACTIVE PROBLEM LIST Regular Astigmatism Presbyopia Hypermetropia Anxiety Spasm of Muscle PAST MEDICAL HISTORY Diagnosis Date Anxiety state NEGATIVE HISTORY OF No TB, DM, CA, heart dis, pnuemonia PAST SURGICAL HISTORY Procedure Laterality Date CHOLECYSTECTOMY HYSTEROSCOPY, DIAGNOSTIC (SEPARATE 1998 Hysteroscopy PAST SURGICAL HISTORY OF 1995, 1999 C-Sect x 2 TONSILLECTOMY HX Bilateral 09/24/2003 TOTAL ABDOMINAL HYSTERECT W/WO RMVL TUBE OVARY 2000 Hysterectomy, LEVI Social History Tobacco Use Smoking status: Former Current packs/day: 0.00 Types: Cigarettes Quit date: 04/29/2006 Years since quittin.7 Smokeless tobacco: Never Tobacco comments: quit 2006 Vaping Use Vaping status: Never Used Substance Use Topics Alcohol use: No Comment: very rarely Drug use: No Family History Problem Relation Age of Onset Hypertension Mother Hypertension Father Lipids Father other (stomach cancer) Father Esoph Ca (?) other (barretts es) Father Tremor Father other (memory probl) Father Hypertension Brother Dementia Paternal Grandmother 90s Heart Attack Paternal Grandfather 58 . Review of Systems Constitutional: Negative for activity change, appetite change, chills, diaphoresis, fatigue, fever and unexpected weight change. HENT: Positive for sneezing. Negative for congestion, dental problem, ear pain, postnasal drip, rhinorrhea, sinus (more content not included)... [facility] 12-17-2024 History of Present illness Narrative This note was created using Animated Dynamicsriter. Subjective Nan Frey is a 54 year old female here today for acute visit for requesting medication for upcoming flight. In the past she was given ativan that she takes prior to flying. She will be flying to [place] which is a 11 hours. She is leaving 12/25/24. She reports getting very anxious when flying. States she is normally anxious but worsens when flying. ALLERGIES Allergen Reactions Mobic [Meloxicam] Swelling legs Current Outpatient Medications Medication Sig Dispense Refill polymyxin B-trimethoprim (POLYTRIM) 10,000 unit- 1 mg/mL ophthalmic solution Use 1 Drop in the right eye four times daily. 10 mL 0 multivitamin tablet Take 1 tablet by mouth. (Patient not taking: Reported on 05/30/2024) omega-3 fatty acids/fish oil (FISH OIL-OMEGA-3 FATTY ACIDS) 300-1,000 mg cap Take 2 capsules by mouth. (Patient not taking: Reported on 05/30/2024) ibuprofen (MOTRIN) 200 mg tablet Take 200 mg by mouth every 6 hours as needed. (Patient not taking: Reported on 05/30/2024) No current facility-administered medications for this visit. ACTIVE PROBLEM LIST Regular Astigmatism Presbyopia Hypermetropia Anxiety Spasm of Muscle PAST MEDICAL HISTORY Diagnosis Date Anxiety state NEGATIVE HISTORY OF No TB, DM, CA, heart dis, pnuemonia PAST SURGICAL HISTORY Procedure Laterality Date CHOLECYSTECTOMY HYSTEROSCOPY, DIAGNOSTIC (SEPARATE 1998 Hysteroscopy PAST SURGICAL HISTORY OF 1995, 1999 C-Sect x 2 TONSILLECTOMY HX Bilateral 09/24/2003 TOTAL ABDOMINAL HYSTERECT W/WO RMVL TUBE OVARY 2001 Hysterectomy, LEVI Social History Tobacco Use Smoking status: Former Current packs/day: 0.00 Types: Cigarettes Quit date: 04/29/2006 Years since quittin.6 Smokeless tobacco: Never Tobacco comments: quit 2006 Vaping Use Vaping status: Never Used Substance Use Topics Alcohol use: No Comment: very rarely Drug use: No Family History Problem Relation Age of Onset Hypertension Mother Hypertension Father Lipids Father other (stomach cancer) Father Esoph Ca (?) other (barretts es) Father Tremor Father other (memory probl) Father Hypertension Brother Dementia Paternal Grandmother 90s Heart Attack Paternal Grandfather 58 Review of Systems Constitutional: Negative for chills, fatigue and fever. Respiratory: Negative for cough, shortness of breath and wheezing. Cardiovascular: Negative for chest pain, palpitations and leg swelling. Neurological: Negative for dizziness and headaches. Psychiatric/Behavioral: Negative for dysphoric mood. The patient is nervous/anxious. Objective 12/17/24 1416 BP: 124/78 Pulse: 83 Resp: 18 SpO2: 100% Weight: 106.3 kg (234 lb 6.4 oz) Height: 174 cm (5' 8.5) There were no vitals taken for this visit. Physical Exam Vitals and nursing note reviewed. Constitutional: General: She is not in acute distress. Appearance: She is not ill-appearing. HENT: Head: Normocephalic and atraumatic. Cardiovascular: Rate and Rhythm: Normal rate and regular rhythm. Pulses: Normal pulses. Heart sounds: Normal heart sounds. No murmur heard. Pulmonary: Effort: Pulmonary effort is normal. No respiratory distress. Breath sounds: Normal breath sounds. No wheezing or rhonchi. Skin: General: Skin is warm and dry. Neurological: Mental Status: She is alert and oriented to person, place, and time. Psychiatric: Mood and Affect: Mood normal. Behavior: Behavior normal. Thought Content: Thought content normal. Judgment: Judgment normal. Assessment and Plan ASSESSMENT/PLAN: 1. 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 Will given ativan for flight - PDMP website checked and validated. All prescriptions have been APPROPRIATELY filled. No suspicious activity was identified. 12/17/2024 by Angy Francis APRN.BREAD WRAPPING MACHINE FEEDER - LORAZEPAM 0.5 MG TABLET Angy Francis APRN.BREAD WRAPPING MACHINE FEEDER documented in this encounter [facility] 12-17-2024 Note HNO ID: [id number] Author: ANGY FRANCIS APRN.BREAD WRAPPING MACHINE FEEDER Service: ? Author Type: Nurse Practitioner Type: Progress Notes Filed: 12/17/2024 14:43 Note Text: This note was created using NoteWriter. Subjective Nan Frey is a 54 year old female here today for acute visit for requesting medication for upcoming flight. In the past she was given ativan that she takes prior to flying. She will be flying to [place] which is a 11 hours. She is leaving 12/25/24. She reports getting very anxious when flying. States she is normally anxious but worsens when flying. ALLERGIES Allergen Reactions Mobic [Meloxicam] Swelling legs Current Outpatient Medications Medication Sig Dispense Refill polymyxin B-trimethoprim (POLYTRIM) 10,000 unit- 1 mg/mL ophthalmic solution Use 1 Drop in the right eye four times daily. 10 mL 0 multivitamin tablet Take 1 tablet by mouth. (Patient not taking: Reported on 05/30/2024) omega-3 fatty acids/fish oil (FISH OIL-OMEGA-3 FATTY ACIDS) 300-1,000 mg cap Take 2 capsules by mouth. (Patient not taking: Reported on 05/30/2024) ibuprofen (MOTRIN) 200 mg tablet Take 200 mg by mouth every 6 hours as needed. (Patient not taking: Reported on 05/30/2024) No current facility-administered medications for this visit. ACTIVE PROBLEM LIST Regular Astigmatism Presbyopia Hypermetropia Anxiety Spasm of Muscle PAST MEDICAL HISTORY Diagnosis Date Anxiety state NEGATIVE HISTORY OF No TB, DM, CA, heart dis, pnuemonia PAST SURGICAL HISTORY Procedure Laterality Date CHOLECYSTECTOMY HYSTEROSCOPY, DIAGNOSTIC (SEPARATE 1998 Hysteroscopy PAST SURGICAL HISTORY OF 1995, 1999 C-Sect x 2 TONSILLECTOMY HX Bilateral 09/24/2003 TOTAL ABDOMINAL HYSTERECT W/WO RMVL TUBE OVARY 2000 Hysterectomy, LEVI Social History Tobacco Use Smoking status: Former Current packs/day: 0.00 Types: Cigarettes Quit date: 04/29/2006 Years since quittin.6 Smokeless tobacco: Never Tobacco comments: quit 2006 Vaping Use Vaping status: Never Used Substance Use Topics Alcohol use: No Comment: very rarely Drug use: No Family History Problem Relation Age of Onset Hypertension Mother Hypertension Father Lipids Father other (stomach cancer) Father Esoph Ca (?) other (barretts es) Father Tremor Father other (memory probl) Father Hypertension Brother Dementia Paternal Grandmother 90s Heart Attack Paternal Grandfather 58 Review of Systems Constitutional: Negative for chills, fatigue and fever. Respiratory: Negative for cough, shortness of breath and wheezing. Cardiovascular: Negative for chest pain, palpitations and leg swelling. Neurological: Negative for dizziness and headaches. Psychiatric/Behavioral: Negative for dysphoric mood. The patient is nervous/anxious. Objective 12/17/24 1416 BP: 124/78 Pulse: 83 Resp: 18 SpO2: 100% Weight: 106.3 kg (234 lb 6.4 oz) Height: 174 cm (5' 8.5) There were no vitals taken for this visit. Physical Exam Vitals and nursing note reviewed. Constitutional: General: She is not in acute distress. Appearance: She is not ill-appearing. HENT: Head: Normocephalic and atraumatic. Cardiovascular: Rate and Rhythm: Normal rate and regular rhythm. Pulses: Normal pulses. Heart sounds: Normal heart sounds. No murmur heard. Pulmonary: Effort: Pulmonary effort is normal. No respiratory distress. Breath sounds: Normal breath sounds. No wheezing or rhonchi. Skin: General: Skin is warm and dry. Neurological: Mental Status: She is alert and oriented to person, place, and time. Psychiatric: Mood and Affect: Mood normal. Behavior: Behavior normal. Thought Content: Thought content normal. Judgment: Judgment normal. Assessment and Plan ASSESSMENT/PLAN: 1. 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 Will given ativan for flight - PDMP website checked and validated. All prescriptions have been APPROPRIATELY filled. No suspicious activity was identified. 12/17/2024 by Angy Francis APRN.BREAD WRAPPING MACHINE FEEDER - LORAZEPAM 0.5 MG TABLET Angy Francis APRN.BREAD WRAPPING MACHINE FEEDER [facility] 12-15-2024 Telephone encounter Note Call placed to pt, offered appointment for 12/17/2024. Per Angy Francis CNP okay to hold appointment for pt. Appointment scheduled for 12/17/2024 at 220PM. Pt aware and agrees to appointment date and time. Mervat Lama LPN [facility] 12-15-2024 Miscellaneous Notes Call placed to pt, offered appointment for 12/17/2024. Per Angy Francis CNP okay to hold appointment for pt. Appointment scheduled for 12/17/2024 at 220PM. Pt aware and agrees to appointment date and time. Mervat Lama LPN documented in this encounter [facility] 11-21-2024 Instructions Clyde Blanco MD - 11/21/2024 4:38 PM EST Current Ophthalmic Meds polymyxin B-trimethoprim (POLYTRIM) 10,000 unit- 1 mg/mL ophthalmic solution Use 1 Drop in the right eye four times daily for four days Ice packs four times daily right eye If you have any questions please contact our office at [phone]. After office hours or on the weekend, please call Dr. Blanco on his cell phone at [phone]. documented in this encounter [facility] 11-21-2024 Note HNO ID: [id number] Author: CLYDE BLANCO MD Service: ? Author Type: Physician Type: Progress Notes Filed: 11/21/2024 16:39 Note Text: ASSESSMENT/PLAN: 1. Posterior vitreous detachment of right eye - ICD9: 379.21, ICD10: H43.811 (primary diagnosis) 2. Vitreous floaters of both eyes - ICD9: 379.24, ICD10: H43.393 Patient was given both written and verbal information on flashes and floaters. Patient was instructed to call the office ([phone]) immediately upon noticing flashes of light, increase in floaters, or changes in vision. 3. Acute bacterial conjunctivitis of right eye - ICD9: 372.03, ICD10: H10.31 - PROBABLY VIRAL If condition does not improve, patient is to see Dr. Fartun Damon Current Ophthalmic Meds polymyxin B-trimethoprim (POLYTRIM) 10,000 unit- 1 mg/mL ophthalmic solution Use 1 Drop in the right eye 4 times a day for 4 days. Ice Packs four times daily right eye I have confirmed and edited as necessary the relevant HPI, ophthalmic history, ROS, and the neuro exam findings as obtained by others. I have seen and examined Nan Frey. I have discussed the case and the management of this patient's care with the Resident/Fellow, if applicable. I also have reviewed and agree with the assessment and plan as stated above and agree with all of its relevant components. [facility] 11-21-2024 History of Present illness Narrative ASSESSMENT/PLAN: 1. Posterior vitreous detachment of right eye - ICD9: 379.21, ICD10: H43.811 (primary diagnosis) 2. Vitreous floaters of both eyes - ICD9: 379.24, ICD10: H43.393 Patient was given both written and verbal information on flashes and floaters. Patient was instructed to call the office ([phone]) immediately upon noticing flashes of light, increase in floaters, or changes in vision. 3. Acute bacterial conjunctivitis of right eye - ICD9: 372.03, ICD10: H10.31 - PROBABLY VIRAL If condition does not improve, patient is to see Dr. Fartun Damon Current Ophthalmic Meds polymyxin B-trimethoprim (POLYTRIM) 10,000 unit- 1 mg/mL ophthalmic solution Use 1 Drop in the right eye 4 times a day for 4 days. Ice Packs four times daily right eye I have confirmed and edited as necessary the relevant HPI, ophthalmic history, ROS, and the neuro exam findings as obtained by others. I have seen and examined Nan Cathi Whaleny. I have discussed the case and the management of this patient's care with the Resident/Fellow, if applicable. I also have reviewed and agree with the assessment and plan as stated above and agree with all of its relevant components. documented in this encounter [facility] 11-20-2024 Note Date of Procedure 11/20/2024. OCT Macula Interpretation Right Eye Normal without fluid. Findings include PVD. Left Eye Normal without fluid. Findings include PVD. Interval Change Right Eye Initial. Left Eye Initial. [facility] 11-20-2024 Note HNO ID: [id number] Author: CLYDE BLANCO MD Service: ? Author Type: Physician Type: Progress Notes Filed: 11/20/2024 15:42 Note Text: ASSESSMENT/PLAN: 1. Posterior vitreous detachment of right eye - ICD9: 379.21, ICD10: H43.811 (primary diagnosis) 2. Vitreous floaters of both eyes - ICD9: 379.24, ICD10: H43.393 Patient was given both written and verbal information on flashes and floaters. Patient was instructed to call the office ([phone]) immediately upon noticing flashes of light, increase in floaters, or changes in vision. 3. Acute bacterial conjunctivitis of right eye - ICD9: 372.03, ICD10: H10.31 Current Ophthalmic Meds polymyxin B-trimethoprim (POLYTRIM) 10,000 unit- 1 mg/mL ophthalmic solution Use 1 Drop in the right eye every 2 hours. I have confirmed and edited as necessary the relevant HPI, ophthalmic history, ROS, and the neuro exam findings as obtained by others. I have seen and examined Nan Frey. I have discussed the case and the management of this patient's care with the Resident/Fellow, if applicable. I also have reviewed and agree with the assessment and plan as stated above and agree with all of its relevant components. Clyde Blanco MD [facility] 11-20-2024 History of Present illness Narrative ASSESSMENT/PLAN: 1. Posterior vitreous detachment of right eye - ICD9: 379.21, ICD10: H43.811 (primary diagnosis) 2. Vitreous floaters of both eyes - ICD9: 379.24, ICD10: H43.393 Patient was given both written and verbal information on flashes and floaters. Patient was instructed to call the office ([phone]) immediately upon noticing flashes of light, increase in floaters, or changes in vision. 3. Acute bacterial conjunctivitis of right eye - ICD9: 372.03, ICD10: H10.31 Current Ophthalmic Meds polymyxin B-trimethoprim (POLYTRIM) 10,000 unit- 1 mg/mL ophthalmic solution Use 1 Drop in the right eye every 2 hours. I have confirmed and edited as necessary the relevant HPI, ophthalmic history, ROS, and the neuro exam findings as obtained by others. I have seen and examined Nan Frey. I have discussed the case and the management of this patient's care with the Resident/Fellow, if applicable. I also have reviewed and agree with the assessment and plan as stated above and agree with all of its relevant components. Clyde Blanco MD documented in this encounter [facility] 11-20-2024 Instructions Clyde Blanco MD - 11/20/2024 3:40 PM EST Current Ophthalmic Meds polymyxin B-trimethoprim (POLYTRIM) 10,000 unit- 1 mg/mL ophthalmic solution Use 1 Drop in the right eye every 2 hours. If you have any questions please contact our office at [phone]. After office hours or on the weekend, please call Dr. Blanco on his cell phone at [phone]. documented in this encounter [facility] 11-15-2024 Instructions Fartun Damon II, ERIC - 11/15/2024 10:34 AM EST Assessment and Plan H43.811 Posterior vitreous detachment of right eye (primary encounter diagnosis) Comment: Posterior vitreal detachment causing new vitreal floaters and photopsia. No retinal hemorrhage. Retina flat and intact with no apparent retinal tear or traction. Discussed expected course of healing. Discussed symptoms of retinal tear/detachment and if seen patient will return to clinic without delay. Otherwise recheck at annual exam. I have confirmed and edited as necessary the relevant HPI, ophthalmic history, ROS, and the neuro exam findings as obtained by others. I have seen and examined Nan Cathi Whaleny. I have discussed the case and the management of this patient's care with the Resident/Fellow, if applicable. I also have reviewed and agree with the assessment and plan as stated above and agree with all of its relevant components. documented in this encounter [facility] 11-15-2024 Note HNO ID: [id number] Author: FARTUN DAMON II, OD Service: ? Author Type: ROADWAY DESIGNER Type: Progress Notes Filed: 11/15/2024 10:35 Note Text: Assessment and Plan H43.811 Posterior vitreous detachment of right eye (primary encounter diagnosis) Comment: Posterior vitreal detachment causing new vitreal floaters and photopsia. No retinal hemorrhage. Retina flat and intact with no apparent retinal tear or traction. Discussed expected course of healing. Discussed symptoms of retinal tear/detachment and if seen patient will return to clinic without delay. Otherwise recheck at annual exam. I have confirmed and edited as necessary the relevant HPI, ophthalmic history, ROS, and the neuro exam findings as obtained by others. I have seen and examined Nan Frey. I have discussed the case and the management of this patient's care with the Resident/Fellow, if applicable. I also have reviewed and agree with the assessment and plan as stated above and agree with all of its relevant components. [facility] 11-15-2024 History of Present illness Narrative Assessment and Plan H43.811 Posterior vitreous detachment of right eye (primary encounter diagnosis) Comment: Posterior vitreal detachment causing new vitreal floaters and photopsia. No retinal hemorrhage. Retina flat and intact with no apparent retinal tear or traction. Discussed expected course of healing. Discussed symptoms of retinal tear/detachment and if seen patient will return to clinic without delay. Otherwise recheck at annual exam. I have confirmed and edited as necessary the relevant HPI, ophthalmic history, ROS, and the neuro exam findings as obtained by others. I have seen and examined Nan Frey. I have discussed the case and the management of this patient's care with the Resident/Fellow, if applicable. I also have reviewed and agree with the assessment and plan as stated above and agree with all of its relevant components. documented in this encounter [facility] 05-30-2024 Instructions Fartun Damon II, OD - 05/30/2024 4:52 PM EDT Assessment and Plan H52.03 Hyperopia of both eyes (primary encounter diagnosis) H52.4 Presbyopia Comment: Stable glasses power. Update glasses as desired. H04.123 Chronic dryness of both eyes Comment: Patient tolerates for now. Artificial tears as needed. I have confirmed and edited as necessary the relevant HPI, ophthalmic history, ROS, and the neuro exam findings as obtained by others. I have seen and examined Nan Winkler Rahul. I have discussed the case and the management of this patient's care with the Resident/Fellow, if applicable. I also have reviewed and agree with the assessment and plan as stated above and agree with all of its relevant components. documented in this encounter [facility] 05-30-2024 Note HNO ID: [id number] Author: FARTUN DAMON II, OD Service: ? Author Type: ROADWAY DESIGNER Type: Progress Notes Filed: 05/30/2024 16:52 Note Text: Assessment and Plan H52.03 Hyperopia of both eyes (primary encounter diagnosis) H52.4 Presbyopia Comment: Stable glasses power. Update glasses as desired. H04.123 Chronic dryness of both eyes Comment: Patient tolerates for now. Artificial tears as needed. I have confirmed and edited as necessary the relevant HPI, ophthalmic history, ROS, and the neuro exam findings as obtained by others. I have seen and examined Nan Winkler Rahul. I have discussed the case and the management of this patient's care with the Resident/Fellow, if applicable. I also have reviewed and agree with the assessment and plan as stated above and agree with all of its relevant components. [facility] 05-30-2024 History of Present illness Narrative Assessment and Plan H52.03 Hyperopia of both eyes (primary encounter diagnosis) H52.4 Presbyopia Comment: Stable glasses power. Update glasses as desired. H04.123 Chronic dryness of both eyes Comment: Patient tolerates for now. Artificial tears as needed. I have confirmed and edited as necessary the relevant HPI, ophthalmic history, ROS, and the neuro exam findings as obtained by others. I have seen and examined Nan Frey. I have discussed the case and the management of this patient's care with the Resident/Fellow, if applicable. I also have reviewed and agree with the assessment and plan as stated above and agree with all of its relevant components. documented in this encounter [facility] 05-29-2024 Telephone encounter Note Patient is informed Fatoumata Palomares MA [facility] 05-29-2024 Miscellaneous Notes Patient is informed Fatoumata Palomares MA ----- Message from Angy Francis APRN.BREAD WRAPPING MACHINE FEEDER sent at 05/26/2024 9:06 AM EDT ----- Creatinine continues to improve. Recommend we continue to monitor. She soul continue to avoid NSAIDS. Tylenol products only for QIU, pain etc. We recheck again with routine labs in Oct documented in this encounter [facility] 05-29-2024 Telephone encounter Note ----- Message from Angy Francis APRN.BREAD WRAPPING MACHINE FEEDER sent at 05/26/2024 9:06 AM EDT ----- Creatinine continues to improve. Recommend we continue to monitor. She soul continue to avoid NSAIDS. Tylenol products only for QIU, pain etc. We recheck again with routine labs in Oct [facility] 05-16-2024 Telephone encounter Note ----- Message from Katie Vieyra MA sent at 02/14/2024 3:10 PM EDT ----- Kidneys stable. Recheck in 3 months. Katie Kaplan MA [facility] 05-16-2024 Miscellaneous Notes ----- Message from Katie Vieyra MA sent at 02/14/2024 3:10 PM EDT ----- Kidneys stable. Recheck in 3 months. Katie Kaplan MA documented in this encounter [facility] 02-14-2024 Telephone encounter Note Called pt left VM with results and for pt to call the office with any questions reminder placed to recheck labs Katie Kaplan MA [facility] 02-14-2024 Telephone encounter Note ----- Message from Angy Francis APRN.BREAD WRAPPING MACHINE FEEDER sent at 02/13/2024 3:48 PM EDT ----- Kidneys stable. Normal GFR but her creatinine remains elevated. Avoid all NSAIDS. No ibuprofen(tylenol only) Make sure increase water., will continue to monitor. Recheck in 3 months. [facility] 02-14-2024 Miscellaneous Notes Called pt left VM with results and for pt to call the office with any questions reminder placed to recheck labs Katie Kaplan MA ----- Message from Angy Francis APRN.BREAD WRAPPING MACHINE FEEDER sent at 02/13/2024 3:48 PM EDT ----- Kidneys stable. Normal GFR but her creatinine remains elevated. Avoid all NSAIDS. No ibuprofen(tylenol only) Make sure increase water., will continue to monitor. Recheck in 3 months. documented in this encounter [facility] 02-12-2024 Telephone encounter Note Called pt let her know she is due for labs Katie Kaplan MA [facility] 02-12-2024 Miscellaneous Notes Called pt let her know she is due for labs Katie Kaplan MA ----- Message from Katie Kaplan MA sent at 01/15/2024 4:04 PM EDT ----- Recheck in 4 wks. Creatinine documented in this encounter [facility] 02-12-2024 Telephone encounter Note ----- Message from Katie Kaplan MA sent at 01/15/2024 4:04 PM EDT ----- Recheck in 4 wks. Creatinine [facility] 01-28-2024 Telephone encounter Note Called pt let her know the results Katie Kaplan MA [facility] 01-28-2024 Telephone encounter Note ----- Message from nAgy Francis APRN.BREAD WRAPPING MACHINE FEEDER sent at 01/24/2024 7:08 PM EDT ----- Mammogram normal. Follow up routine yearly screening Angy Francis APRN.BREAD WRAPPING MACHINE FEEDER [facility] 01-28-2024 Miscellaneous Notes Called pt let her know the results Katie Kaplan MA ----- Message from Angy Francis APRN.BREAD WRAPPING MACHINE FEEDER sent at 01/24/2024 7:08 PM EDT ----- Mammogram normal. Follow up routine yearly screening Angy Francis APRN.BREAD WRAPPING MACHINE FEEDER documented in this encounter [facility] 01-24-2024 Note Formatting of this n ote might be different from the original. [address] [address] January 24, 2024 PID: [id number] Nan Frey [address] [place] [address] Dear Ms. Frey, We are pleased to inform you that the results of your recent breast imaging exam on 01/23/2024 are normal. Early detection of cancer is very important. We also understand recommendations regarding breast cancer screening are controversial. Please discuss with your primary care provider which strategy is best for you and whether a mammogram is right for you. Your imaging studies and report will be kept on file at [facility] as part of your permanent medical record and are available for your continuing care. Thank you for allowing us to help in meeting your health care needs. Sincerely, Dr. Jean-Baptiste Interpreting Radiologist [facility] (Normal over 40) [facility] 01-24-2024 Miscellaneous Notes [address] [address] January 24, 2024 PID: [id number] Nan Frey [address] [place] [address] Dear Ms. Frey, We are pleased to inform you that the results of your recent breast imaging exam on 01/23/2024 are normal. Early detection of cancer is very important. We also understand recommendations regarding breast cancer screening are controversial. Please discuss with your primary care provider which strategy is best for you and whether a mammogram is right for you. Your imaging studies and report will be kept on file at [facility] as part of your permanent medical record and are available for your continuing care. Thank you for allowing us to help in meeting your health care needs. Sincerely, Dr. Jean-Baptiste Interpreting Radiologist [facility] (Normal over 40) documented in this encounter [facility] 01-23-2024 History of Present illness Narrative Radiology Service Progress Note PATIENT NAME: Nan Frey DATE OF SERVICE: January 23, 2024 TIME: 4:32 PM PATIENT IDENTITY VERIFICATION COMPLETED USING TWO (2) IDENTIFIERS: Name and Date of confirmed by patient verbally. FALL SCREENING: Has the patient had 2 falls in the last year or 1 fall with injury or currently using an Ambulatory Assistive Device (Walker, Cane, Wheelchair, Crutches, etc.)? No PATIENT GENDER DATA: Female. status: : No status: N/A PATIENT RELEVANT IMPLANT DATA REVIEWED: Not Applicable PATIENT PRESENTS WITH AN IMPLANTABLE OR ATTACHED HYSTER MACHINE OPERATOR: No RADIOLOGY DEPARTMENT: Mammography PERIPHERAL IV DATA: Not applicable SIGNED BY: RT Flakita(Cathi) January 23, 2024 4:32 PM documented in this encounter [facility] 01-15-2024 Telephone encounter Note Called pt let her know the results pt was taking NSAIDS prior to labs Katie Kaplan MA [facility] 01-15-2024 Miscellaneous Notes Called pt let her know the results pt was taking NSAIDS prior to labs Katie Kaplan MA ----- Message from Angy Francis APRN.BREAD WRAPPING MACHINE FEEDER sent at 01/14/2024 4:21 PM EDT ----- Labs unremarkable except creatinine is mildly elevated. Recheck in 4 wks. Creatinine avoid all nsaids ----- Message from Angy Francis APRN.BREAD WRAPPING MACHINE FEEDER sent at 01/14/2024 4:22 PM EDT ----- Let pt know her hip xrays are normal documented in this encounter [facility] 01-15-2024 Telephone encounter Note ----- Message from Angy Francis APRN.BREAD WRAPPING MACHINE FEEDER sent at 01/14/2024 4:21 PM EDT ----- Labs unremarkable except creatinine is mildly elevated. Recheck in 4 wks. Creatinine avoid all nsaids [facility] 01-15-2024 Telephone encounter Note ----- Message from Angy Francis APRN.CNP sent at 01/14/2024 4:22 PM EDT ----- Let pt know her hip xrays are normal [facility] 01-09-2024 Instructions Angy Francis APRN.CNP - 01/09/2024 9:58 AM EDT ASSESSMENT/PLAN: 1. Wellness examination - ICD9: V70.0, ICD10: Z00.00 (primary diagnosis) - Counseled on healthy diet and regular exercise - Discussed need and benefit for weight loss. BMI 34.61 kg/(m^2) - Mammogram ordered - exam recommended once yearly - Bone mineral density ordered - Counseled patient on limiting alcohol intake to 1 drink per day - Follow up for annual exam in one year 2. Bilateral hip pain - ICD9: 719.45, ICD10: M25.551, M25.552 - XR HIP BILATERAL 5V PEL/AP/LAT EACH HIP 3. Encounter for screening mammogram for malignant neoplasm of breast - ICD9: V76.12, ICD10: Z12.31 - NANCY SCREENING 4. Vitamin D deficiency - ICD9: 268.9, ICD10: E55.9 - VITAMIN D 25 HYDROXY 5. Encounter for screening for diabetes mellitus - ICD9: V77.1, ICD10: Z13.1 - COMPREHENSIVE METABOLIC PANEL 6. Screening for deficiency anemia - ICD9: V78.1, ICD10: Z13.0 - COMPLETE BLOOD COUNT 7. Screening for lipid disorders - ICD9: V77.91, ICD10: Z13.220 - LIPID PANEL BASIC Angy Francis APRN.BREAD WRAPPING MACHINE FEEDER documented in this encounter [facility] 01-09-2024 History of Present illness Narrative This note was created using [employer]. Subjective Nan Frey is a 53 year old female here today for [facility] anxiety. Patient denies changes in health since last office visit. Reports feeling well. Denies concerns or complaints today. I reviewed patients past medical, surgical, social, and family histories today and updated chart. Allergies, chronic medications, and supplements were also reviewed and list is now up to date. She reports having skin cancer screening with Dr Lopez. No concerns found. Preventative: she is mammogram. Colonoscopy 07/2019, 5 yr follow up she is due in the fall with Dr Neely ALLERGIES Allergen Reactions Mobic [Meloxicam] Swelling legs Current Outpatient Medications Medication Sig Dispense Refill multivitamin tablet Take 1 tablet by mouth. omega-3 fatty acids/fish oil (FISH OIL-OMEGA-3 FATTY ACIDS) 300-1,000 mg cap Take 2 capsules by mouth. ibuprofen (MOTRIN) 200 mg tablet Take 200 mg by mouth every 6 hours as needed. diclofenac sodium (VOLTAREN) 1 % topical gel APPLY 2 GRAMS TO AFFECTED AREA FOUR TIMES DAILY. (Patient not taking: Reported on 05/04/2023) 200 g 0 naproxen (NAPROSYN) 500 mg tablet Take 1 tablet by mouth twice daily as needed (FOR PAIN - TAKE WITH FOOD.). (Patient not taking: Reported on 01/23/2022) 60 tablet 1 No current facility-administered medications for this visit. ACTIVE PROBLEM LIST Regular Astigmatism Presbyopia Hypermetropia Anxiety Spasm of Muscle PAST MEDICAL HISTORY Diagnosis Date Anxiety state NEGATIVE HISTORY OF No TB, DM, CA, heart dis, pnuemonia PAST SURGICAL HISTORY Procedure Laterality Date CHOLECYSTECTOMY HYSTEROSCOPY, DIAGNOSTIC (SEPARATE 1998 Hysteroscopy PAST SURGICAL HISTORY OF 1995, 1999 C-Sect x 2 TONSILLECTOMY HX Bilateral 09/24/2003 TOTAL ABDOMINAL HYSTERECT W/WO RMVL TUBE OVARY 2001 Hysterectomy, LEVI Social History Tobacco Use Smoking status: Former Types: Cigarettes Quit date: 04/29/2006 Years since quittin.7 Smokeless tobacco: Never Tobacco comments: quit 2006 Vaping Use Vaping Use: Never used Substance Use Topics Alcohol use: No Comment: very rarely Drug use: No Family History Problem Relation Age of Onset Hypertension Mother Hypertension Father Lipids Father other (stomach cancer) Father Esoph Ca (?) other (barretts es) Father Tremor Father other (memory probl) Father Hypertension Brother Dementia Paternal Grandmother 90s Heart Attack Paternal Grandfather 58 Review of Systems Constitutional: Negative for activity change, appetite change, chills, diaphoresis, fatigue, fever and unexpected weight change. HENT: Negative for sore throat and trouble swallowing. Eyes: Negative for photophobia and visual disturbance. Respiratory: Negative for cough, chest tightness, shortness of breath and wheezing. Cardiovascular: Negative for chest pain, palpitations and leg swelling. Gastrointestinal: Negative for abdominal pain, blood in stool, constipation, diarrhea, nausea and vomiting. Endocrine: Negative. Genitourinary: Negative for difficulty urinating, dysuria, frequency, hematuria, pelvic pain and urgency. Musculoskeletal: Positive for arthralgias. Negative for back pain, myalgias and neck pain. Left hip pain Skin: Negative. Neurological: Negative for dizziness, weakness, light-headedness, numbness and headaches. Hematological: Negative. Negative for adenopathy. Does not bruise/bleed easily. Psychiatric/Behavioral: Negative for dysphoric mood and sleep disturbance. The patient is not nervous/anxious. Objective BP 128/78 (BP Site: Left Arm, BP Position: Sitting, BP Cuff Size: Large Adult) Pulse 79 Temp 36.6 C (97.8 F) (Oral) Resp 18 Ht 174 cm (5' 8.5) Wt 104.8 kg (231 lb) SpO2 100% BMI 34.61 kg/m Physical Exam Vitals and nursing note reviewed. Constitutional: General: She is not in acute distress. Appearance: Normal appearance. She is not ill-appearing or diaphoretic. HENT: Head: Normocephalic and atraumatic. Right Ear: External ear normal. Left Ear: External ear normal. Nose: Nose normal. No congestion or rhinorrhea. Mouth/Throat: Pharynx: No oropharyngeal exudate. Eyes: General: Lids are normal. No scleral icterus. Right eye: No discharge. Left eye: No discharge. Conjunctiva/sclera: Conjunctivae normal. Pupils: Pupils are equal, round, and reactive to light. Neck: Vascular: Normal carotid pulses. No carotid bruit. Cardiovascular: Rate and Rhythm: Normal rate and regular rhythm. Pulses: Normal pulses. Heart sounds: Normal heart sounds, S1 normal and S2 normal. No murmur heard. No friction rub. No gallop. Pulmonary: Effort: Pulmonary effort is normal. No accessory muscle usage or respiratory distress. Breath sounds: Normal breath sounds. No decreased breath sounds, wheezing, rhonchi or rales. Chest: Chest wall: No tenderness. Abdominal: General: Bowel sounds are normal. There is no distension. Palpations: Abdomen is soft. Tenderness: There is no abdominal tenderness. Musculoskeletal: General: No tenderness. Normal range of motion. Cervical back: Normal range of motion and neck supple. Thoracic back: Normal. Lumbar back: Normal. Right hip: Normal. Left hip: Normal. Right lower leg: No edema. Left lower leg: No edema. Skin: General: Skin is warm and dry. Coloration: Skin is not pale. Findings: No erythema or rash. Nails: There is no clubbing. Neurological: General: No focal deficit present. Mental Status: She is alert and oriented to person, place, and time. Motor: No abnormal muscle tone. Coordination: Coordination normal. Deep Tendon Reflexes: Reflexes are normal and symmetric. Psychiatric: Attention and Perception: Attention and perception normal. Mood and Affect: Mood normal. Speech: Speech normal. Behavior: Behavior normal. Behavior is cooperative. Thought Content: Thought content normal. Cognition and Memory: Cognition and memory normal. Judgment: Judgment normal. ASSESSMENT/PLAN: 1. Wellness examination - ICD9: V70.0, ICD10: Z00.00 (primary diagnosis) - Counseled on healthy diet and regular exercise - Discussed need and benefit for weight loss. BMI 34.61 kg/(m^2) - Mammogram ordered - exam recommended once yearly - Bone mineral density ordered - Counseled patient on limiting alcohol intake to 1 drink per day - Follow up for annual exam in one year 2. Bilateral hip pain - ICD9: 719.45, ICD10: M25.551, M25.552 - pt reports ongoing hip pain. Exam unremarkable. Will check xrays - XR HIP BILATERAL 5V PEL/AP/LAT EACH HIP 3. Encounter for screening mammogram for malignant neoplasm of breast - ICD9: V76.12, ICD10: Z12.31 - NANCY SCREENING 4. Vitamin D deficiency - ICD9: 268.9, ICD10: E55.9 - VITAMIN D 25 HYDROXY 5. Encounter for screening for diabetes mellitus - ICD9: V77.1, ICD10: Z13.1 - COMPREHENSIVE METABOLIC PANEL 6. Screening for deficiency anemia - ICD9: V78.1, ICD10: Z13.0 - COMPLETE BLOOD COUNT 7. Screening for lipid disorders - ICD9: V77.91, ICD10: Z13.220 - LIPID PANEL BASIC Angy Francis APRN.BREAD WRAPPING MACHINE FEEDER documented in this encounter [facility] 01-11-2023 Miscellaneous Notes Called let her know the results Katie Kaplan MA ----- Message from Angy Francis APRN.BREAD WRAPPING MACHINE FEEDER sent at 01/11/2023 1:18 PM EDT ----- Mammogram negative IMPRESSION IMPRESSION: NEGATIVE There is no mammographic evidence of malignancy. A 1 year screening mammogram is recommended. documented in this encounter [facility] 01-11-2023 Miscellaneous Notes [address] [address] January 11, 2023 PID: [id number] Nan Frey [address] [place] [id number] Dear Ms. Rahul, We are pleased to inform you that the results of your recent breast imaging exam on 01/10/2023 are normal. Early detection of cancer is very important. We also understand recommendations regarding breast cancer screening are controversial. Please discuss with your primary care provider which strategy is best for you and whether a mammogram is right for you. Your imaging studies and report will be kept on file at [facility] as part of your permanent medical record and are available for your continuing care. Thank you for allowing us to help in meeting your health care needs. Sincerely, Dr. Driver Interpreting Radiologist [facility] (Normal over 40) documented in this encounter [facility] 01-10-2023 History of Present illness Narrative Radiology Service Progress Note PATIENT NAME: Nan Frey DATE OF SERVICE: January 10, 2023 TIME: 4:58 PM PATIENT IDENTITY VERIFICATION COMPLETED USING TWO (2) IDENTIFIERS: Name and Date of confirmed by patient verbally. FALL SCREENING: Has the patient had 2 falls in the last year or 1 fall with injury or currently using an Ambulatory Assistive Device (Walker, Cane, Wheelchair, Crutches, etc.)? No PATIENT GENDER DATA: Female. status: : No status: N/A PATIENT RELEVANT IMPLANT DATA REVIEWED: Not Applicable RADIOLOGY DEPARTMENT: Bone Density PERIPHERAL IV DATA: Not applicable SIGNED BY: RT Flakita(Cathi) January 10, 2023 4:58 PM documented in this encounter [facility] 01-10-2023 History of Present illness Narrative Radiology Service Progress Note PATIENT NAME: Nan Frey DATE OF SERVICE: January 10, 2023 TIME: 4:58 PM PATIENT IDENTITY VERIFICATION COMPLETED USING TWO (2) IDENTIFIERS: Name and Date of confirmed by patient verbally. FALL SCREENING: Has the patient had 2 falls in the last year or 1 fall with injury or currently using an Ambulatory Assistive Device (Walker, Cane, Wheelchair, Crutches, etc.)? No PATIENT GENDER DATA: Female. status: : No status: N/A PATIENT RELEVANT IMPLANT DATA REVIEWED: Not Applicable RADIOLOGY DEPARTMENT: Mammography PERIPHERAL IV DATA: Not applicable SIGNED BY: RT Flakita(R) January 10, 2023 4:58 PM documented in this encounter [facility] 11-07-2022 Miscellaneous Notes Pt notified Katie Kaplan MA ----- Message from Angy Francis APRN.BREAD WRAPPING MACHINE FEEDER sent at 11/07/2022 6:37 AM EST ----- Delano rinaldi wnl documented in this encounter [facility] 11-06-2022 History of Present illness Narrative This note was created using Animated Dynamicsriter. Subjective Nan Frey is a 52 year old female here today for concerns for intermittent heart racing since having COVID 08/15. No significant PMH. Patient denies changes in health since last office visit. I reviewed her past medical, surgical, social, and family histories today and updated chart. Allergies, chronic medications, and supplements were also reviewed and her list is now up to date. She reports after foot surgery in February she noticed in the evening she would feel her heart beating and her fitbit would show HR 80s. She reports her usual resting HR is 60s-70s according to her fitbit. States she would get very anxious over this. Denied having any SOB or CP associated with this. Then she notice after having COVID in 08/15. States her Resting HR increased to 80-85. She reports she had a few episodes where her HR would go up into 110-120s when she would get up from sitting to standing. Again denies CP, SOB, QIU, dizziness. Reports it occurred more frequent right after COVID but now it is happening much less frequent and HR returning back to her baseline. Reports she exercised yesterday and while walking her HR max was 115 with 102 average. Reports she can walk and exercise, go up a flight of stairs without SOB or dizziness, or CP. Only thing she noticed since having COVID is increased fatigue which has been improving as well. She does admit to being inactive last year after having her foot surgery in February. She was not able to exercise or even weight bear for months. ALLERGIES Allergen Reactions Mobic [Meloxicam] Swelling legs Current Outpatient Medications Medication Sig Dispense Refill ibuprofen (MOTRIN) 200 mg tablet Take 200 mg by mouth every 6 hours as needed. diclofenac sodium (VOLTAREN) 1 % topical gel APPLY 2 GRAMS TO AFFECTED AREA FOUR TIMES DAILY. (Patient not taking: Reported on 05/12/2022) 200 g 0 naproxen (NAPROSYN) 500 mg tablet Take 1 tablet by mouth twice daily as needed (FOR PAIN - TAKE WITH FOOD.). (Patient not taking: No sig reported) 60 tablet 1 No current facility-administered medications for this visit. ACTIVE PROBLEM LIST Regular Astigmatism Presbyopia Hypermetropia Anxiety Spasm of Muscle PAST MEDICAL HISTORY Diagnosis Date Anxiety state NEGATIVE HISTORY OF No TB, DM, CA, heart dis, pnuemonia PAST SURGICAL HISTORY Procedure Laterality Date CHOLECYSTECTOMY HYSTEROSCOPY, DIAGNOSTIC (SEPARATE 1998 Hysteroscopy PAST SURGICAL HISTORY OF 1995, 1999 C-Sect x 2 TONSILLECTOMY HX Bilateral 09/24/2003 TOTAL ABDOMINAL HYSTERECT W/WO RMVL TUBE OVARY 2001 Hysterectomy, LEVI Social History Tobacco Use Smoking status: Former Types: Cigarettes Quit date: 04/29/2006 Years since quittin.5 Smokeless tobacco: Never Tobacco comments: quit 2006 Vaping Use Vaping Use: Never used Substance Use Topics Alcohol use: No Comment: very rarely Drug use: No Family History Problem Relation Age of Onset Hypertension Mother Hypertension Father Lipids Father other (stomach cancer) Father Esoph Ca (?) other (barretts es) Father Tremor Father other (memory probl) Father Hypertension Brother Dementia Paternal Grandmother 90s Heart Attack Paternal Grandfather 58 . Review of Systems Constitutional: Positive for fatigue. Negative for activity change, appetite change, chills and fever. Respiratory: Negative for cough, chest tightness, shortness of breath and wheezing. Denies snoring Cardiovascular: Negative for chest pain, palpitations and leg swelling. Gastrointestinal: Negative. Neurological: Negative for dizziness, syncope, weakness, light-headedness, numbness and headaches. Psychiatric/Behavioral: Negative for agitation and dysphoric mood. The patient is nervous/anxious. Reports increase anxiety at times Objective 11/06/22 0742 BP: 128/78 BP Site: Right Arm BP Position: Sitting BP Cuff Size: Large Adult Pulse: 87 Resp: 18 Temp: 36.4 C (97.6 F) TempSrc: Oral SpO2: 98% Weight: 102 kg (224 lb 12.8 oz) Height: 174 cm (5' 8.5) Physical Exam Vitals and nursing note reviewed. Constitutional: General: She is not in acute distress. Appearance: Normal appearance. She is obese. She is not ill-appearing. HENT: Head: Normocephalic and atraumatic. Cardiovascular: Rate and Rhythm: Normal rate and regular rhythm. Pulses: Normal pulses. Heart sounds: Normal heart sounds, S1 normal and S2 normal. No murmur heard. Pulmonary: Effort: Pulmonary effort is normal. No respiratory distress. Breath sounds: Normal breath sounds. No decreased breath sounds, wheezing, rhonchi or rales. Musculoskeletal: Right lower leg: No edema. Left lower leg: No edema. Skin: General: Skin is warm and dry. Neurological: Mental Status: She is alert and oriented to person, place, and time. Psychiatric: Mood and Affect: Mood normal. Behavior: Behavior normal. Thought Content: Thought content normal. Judgment: Judgment normal. EKG Interpretation: RHYTHM: Normal sinus rhythm at 81 beats per minute AXIS: Normal axis INTERVALS: Normal RI interval QRS COMPLEX: Normal ST SEGMENT: Normal ST-T segments QT INTERVAL: Normal ASSESSMENT/PLAN: 1. Other fatigue - ICD9: 780.79, ICD10: R53.83 (primary diagnosis) - chronic, since having COVID in July. Will check labs. - TSH BLD 2. Abnormal heart rate - ICD9: 785.3, ICD10: R00.9 - HR today WNR. Her ECG was unremarkable. NSR, normal ECG. HR of 81 - she does not endorse feelings of palpitations. States she only goes by her fitbit readings and states they are improving. She is asymptomatic. 3. Vitamin D deficiency - ICD9: 268.9, ICD10: E55.9 - VITAMIN D 25 HYDROXY 4. Screening for deficiency anemia - ICD9: V78.1, ICD10: Z13.0 - CBC 5. Encounter for screening for diabetes mellitus - ICD9: V77.1, ICD10: Z13.1 - COMP METABOLIC PANEL 6. Screening for lipid disorders - ICD9: V77.91, ICD10: Z13.220 - LIPID PANEL BASIC Angy Francis APRN.BREAD WRAPPING MACHINE FEEDER documented in this encounter [facility] 08-24-2022 History of Present illness Narrative Patient: Nan Frey Date of : 1970 (52 y.o.) PCP: Angy Francis CNP Procedures ASSESSMENT/PLAN: Nan Frey 52 y.o. female with history of status post second toe arthrodesis of the left foot doing well. Plan: Patient was told she can return back to most of her activities for exercise. I did family life counselor patient that the toe will continue to remodel improve for up to a year. Patient to call me if she has any further problems. Assessment & plan notes cannot be loaded without a specified hospital service. SUBJECTIVE: History Since Last Visit: Patient is a 52-year-old female status post second toe arthrodesis of the left foot. Patient relates she is doing well without complaint. Patient's been taping the toe with improvement in the swelling Review of Systems: Unremarked OBJECTIVE: Physical Examination: Integument-skin is warm dry and supple left foot Neuro-no numbness tingling or burning in the second toe left Musculoskeletal-patient has a fusion of the second proximal interphalangeal joint on the left foot. Patient had no pain on the plantar aspect the second metatarsal head. Vascular-DP and PT pulses are palpable on the left BP 138/89 (BP Location: Left arm, Patient Position: Sitting, BP Cuff Size: Adult) Pulse 83 Temp 97.7 F (36.5 C) (Infrared) Laboratory and Additional Data Reviewed: Reviewed:[id number]} XR Foot Left 3+ Views (Standard) Xray 3 views left - There is arthrodesis of the 2nd proximal interphalangeal joint that has occured documented in this encounter [facility] 06-29-2022 History of Present illness Narrative Patient: Nan Frey Date of : 1970 (52 y.o.) PCP: Angy Francis CNP Procedures ASSESSMENT/PLAN: Nan Frey 52 y.o. female with history of second toe arthrodesis left foot healing nicely. Plan: Continue with taping the second toe. Patient was told to wear good stiff soled shoes. Patient to reappoint in 6 to 8 weeks. Assessment & plan notes cannot be loaded without a specified hospital service. SUBJECTIVE: History Since Last Visit: Patient is a 52-year-old female seen at the office for second toe arthrodesis of the left foot. Patient relates it every month gets better and she is pleased with her progress she is making. Patient did not feel cortisone shot was necessary Review of Systems: Under OBJECTIVE: Physical Examination: [id number]-[id number] skin incision the dorsum of the second toe left foot Neuro-intact Musculoskeletal-decreased pain and swelling of the second metatarsal phalange joint of the left foot. Patient second proximal interphalangeal joint appears to be fused. Vascular-DP and PT pulses are palpable left foot BP 138/85 (BP Location: Left arm, Patient Position: Sitting, BP Cuff Size: X-large Adult) Pulse 76 Temp 98.4 F (36.9 C) (Infrared) Laboratory and Additional Data Reviewed: Reviewed:[id number]} XR Foot Left 3+ Views (Standard) Xray 3 view - the 2nd toe proximal phalangeal joint is 60 % fused documented in this encounter [facility] 05-18-2022 History of Present illness Narrative Patient: Nan Frey Date of : 1970 (52 y.o.) PCP: Angy Francis CNP Procedures ASSESSMENT/PLAN: Nan Frey 52 y.o. female with history of status post second toe arthrodesis left foot improving Plan: I told patient the eschar on the tip of the second toe left foot will continue to remodel. Did debride some of it off with a #15 blade handle. Patient has a deep suture that may be coming to the surface from the second toe, she has been instructed to soak in Epson salts and lukewarm water, remove if possible. Patient can return if she is unsuccessful before her next visit in 1 month. Assessment & plan notes cannot be loaded without a specified hospital service. SUBJECTIVE: History Since Last Visit: Patient is a 52-year-old female who is status post second toe proximal interphalange joint arthrodesis of the left foot. Patient relates the ball the foot is been doing pretty good however the toe joint still feels somewhat swollen. Patient was concerned about a possible deep stitch come to the surface of the second proximal interphalangeal joint Review of Systems: Unremarked OBJECTIVE: Physical Examination: Integument-the dorsal aspect of the second toe left foot appears to be well-healed. There is a raised nodule of scar tissue possible deep Vicryl stitch coming to the surface. There is also a dry eschar on the tip of the second toe. Neuro-intact Musculoskeletal-rectus second toe left foot with some swelling. There is no pain on the plantar aspect the second metatarsal phalange joint. Vascular-DP PT pulses are palpable left foot BP 130/87 (BP Location: Right arm, Patient Position: Sitting, BP Cuff Size: Adult) Pulse 73 Temp 98.2 F (36.8 C) (Infrared) Laboratory and Additional Data Reviewed: Reviewed:[id number]} XR Foot Left 3+ Views (Standard) Xray 3 views left - There is partially fused 2nd proximal interphalangeal joint . documented in this encounter [facility] 05-12-2022 Instructions Fartun Damon II, OD - 05/12/2022 12:00 PM EDT Assessment and Plan H52.03 Hyperopia of both eyes (primary encounter diagnosis) H52.4 Presbyopia Comment: Small increase in glasses power. Update glasses as desired. 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 Family history of glaucoma? Monitor yearly. I have confirmed and edited as necessary the relevant ophthalmic history, ROS, and the neuro exam findings as obtained by others. I have seen and examined Nan Frey. I have discussed the case and the management of this patient's care with the Resident/Fellow, if applicable. I also have reviewed and agree with the assessment and plan as stated above and agree with all of its relevant components. Fartun Damon II, OD documented in this encounter [facility] 05-12-2022 History of Present illness Narrative Assessment and Plan H52.03 Hyperopia of both eyes (primary encounter diagnosis) H52.4 Presbyopia Comment: Small increase in glasses power. Update glasses as desired. 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 Family history of glaucoma? Monitor yearly. I have confirmed and edited as necessary the relevant ophthalmic history, ROS, and the neuro exam findings as obtained by others. I have seen and examined Nan Frey. I have discussed the case and the management of this patient's care with the Resident/Fellow, if applicable. I also have reviewed and agree with the assessment and plan as stated above and agree with all of its relevant components. Fartun Damon II, OD documented in this encounter [facility] 04-20-2022 History of Present illness Narrative Patient: Nan Frey Date of : 1970 (52 y.o.) PCP: Angy Francis, BREAD WRAPPING MACHINE FEEDER Procedures ASSESSMENT/PLAN: Nan Frey 52 y.o. female with history of status post arthrodesis second toe left foot doing fairly well. Plan: I advised patient to continue with taping the second toe to hold down the swelling. Patient was told she needs to continue with stiff soled tennis shoes or close sandal. Patient to reappoint in 1 month. Assessment & plan notes cannot be loaded without a specified hospital service. SUBJECTIVE: History Since Last Visit: Patient is a 52-year-old female seen at the office status post second toe arthrodesis of the left foot. Patient relates in the morning it does fine but by the end the day she feels like it is swelling and tender. Patient denies any injury however she relates she has not been diligent about taping the toe all the time Review of Systems: Unremarked OBJECTIVE: Physical Examination: Integument-incision is well-healed on the dorsum of the second toe left foot. No redness no signs of infection noted. Neuro-intact left foot Musculoskeletal-rectus second toe on the left foot. No pain of the second metatarsal phalangeal joint. Patient has a stiff second proximal interphalangeal joint Vascular-DP PT pulses are palpable left BP 136/86 (BP Location: Left arm, Patient Position: Sitting, BP Cuff Size: Adult) Pulse 79 Temp 97.1 F (36.2 C) (Infrared) Laboratory and Additional Data Reviewed: Reviewed:[id number]} XR Foot Left 3+ Views (Standard) Xray 3 views - The 2nd PIPJ fusion is partial healed documented in this encounter [facility] 03-23-2022 History of Present illness Narrative Patient: Nan Frey Date of : 1970 (51 y.o.) PCP: Angy Francis CNP Procedures ASSESSMENT/PLAN: Nan Frey 51 y.o. female with history of status post arthrodesis second toe left foot with pin fixation x4 weeks doing well. Plan: I pulled the pin, applied Coban to keep swelling down. Patient was told she needs to wear good stiff soled shoes even around the house. Patient was told if she has a bad day to take an anti-inflammatory or reapply the boot. Reappoint in 1 month. Assessment & plan notes cannot be loaded without a specified hospital service. SUBJECTIVE: History Since Last Visit: Patient is a 51-year-old female status post second toe arthrodesis of the left foot. Patient is 4 weeks postop and doing well. Review of Systems: Unremarkable OBJECTIVE: Physical Examination: Integument-the incision is well-healed on the dorsum of second toe left foot. No signs of infection around the pin. Neuro-intact left foot Musculoskeletal-swelling of the second toe left foot. Decreased pain underneath the plantar aspect of second metatarsal at Vascular-DP PT pulse are palpable left foot BP 137/84 (BP Location: Right arm, Patient Position: Sitting, BP Cuff Size: X-large Adult) Pulse 87 Temp 97.9 F (36.6 C) (Oral) Laboratory and Additional Data Reviewed: Reviewed:[id number]} XR Foot Left 3+ Views (Standard) X-rays 3 views left foot: There is a second proximal interphalangeal joint fusion with pin fixation healing. documented in this encounter [facility] 03-09-2022 History of Present illness Narrative Patient: Nan Frey Date of : 1970 (51 y.o.) PCP: Angy Francis CNP Procedures ASSESSMENT/PLAN: Nan Frey 51 y.o. female with history of status post second toe arthrodesis left foot 2 weeks postop doing well Plan: Pulled the stitches from the second toe on the left foot. Applied an Jonathan bandage and Cam walker boot for continued ambulation. Reappoint 2 weeks to pull pin and x-rays. Assessment & plan notes cannot be loaded without a specified hospital service. SUBJECTIVE: History Since Last Visit: Patient is a 51-year-old female status post second toe arthrodesis of the left foot 2 weeks since surgery. Patient relates the toes been doing great without complaint Review of Systems: Unremarked OBJECTIVE: Physical Examination: Integument-skin is warm dry and supple on the left foot that incision was well coapted with no signs of infection noted Neuro-intact left foot Musculoskeletal-rectus second toe left foot with K wire fixation Vascular-DP and PT pulses are palpable on the left BP 133/82 (BP Location: Left arm, Patient Position: Sitting, BP Cuff Size: X-large Adult) Pulse 76 Temp 98.4 F (36.9 C) (Oral) Laboratory and Additional Data Reviewed: Reviewed:[id number]} XR Foot Left 3+ Views (Standard) Xray 3 views left foot- there has been a 2nd toe arthrodesis with k wire fixation documented in this encounter [facility] 03-02-2022 History of Present illness Narrative Patient: Nan Frey Date of : 1970 (51 y.o.) PCP: Angy Francis CNP Procedures ASSESSMENT/PLAN: Nan Frey 51 y.o. female with history of status post second toe arthrodesis of the left foot 1 week postop doing well. Plan: Clean the incision with alcohol apply bacitracin and a bandage. Patient is told to keep it dry clean and intact and reappoint in 1 week to have stitches removed. Assessment & plan notes cannot be loaded without a specified hospital service. SUBJECTIVE: History Since Last Visit: Patient is a 51-year-old female comes in status post second toe arthrodesis of the left foot postop 1 week. Patient relates the foot is been doing great wearing her cam walker boot. Review of Systems: Unremarked OBJECTIVE: Physical Examination: Integument-incision on the dorsal aspect of second toe left foot is dry clean and intact. Neuro-intact left foot Musculoskeletal-rectus second toe left foot with K wire fixation. Vascular-DP PT pulses are palpable left foot capillary refill time being less than 3 seconds in the foot being warm to the BP (!) 141/81 Pulse 76 Temp 98.2 F (36.8 C) (Temporal) Laboratory and Additional Data Reviewed: Reviewed:[id number]} XR Foot Left 3+ Views (Standard) Xray 3 views left foot- there has been a 2nd toe arthrodesis with k wire fixation documented in this encounter [facility] 02-09-2022 History of Present illness Narrative Podiatry Outpatient H&P 02/09/2022 Ian Morton DPM @[email or web address]@ Patient: Nan Frey Date of : 1970 (51 y.o.) PCP: Angy Francis CNP @[email or web address]@ ASSESSMENT/PLAN: Nan Frey 51 y.o. female with history of second hammertoe deformity of the left foot with metatarsalgia. Plan: Patient scheduled for second toe arthrodesis of the left foot to realign the metatarsal phalangeal joint. Patient be in a surgical shoe or boot for 30 days of the pin. Patient is explained risks and complications of all surgeries include infection, bleeding, numbness, delayed healing, swelling, scar, DVT and reoccurrence. After all questions were answered patient like to proceed with surgery at this time. Consent form signed preoperatively. Assessment & plan notes cannot be loaded without a specified hospital service. SUBJECTIVE: Chief Complaint/Reason for Visit: Patient complains of painful second hammertoe of the left foot with underlying metatarsalgia. History of Present Illness: Nan Frey is a 51 y.o. female presenting from home with complaint Of painful metatarsalgia of the corresponding second toe on the left foot. Patient is tried orthotics, shoes and anti-inflammatories which have failed to provide her with relief. Review of Systems: Integumentary:No skin rash All other systems reviewed and negative other than HPI No past medical history on file. Past Surgical History: Procedure Laterality Date SECTION, CLASSIC CHOLECYSTECTOMY HYSTERECTOMY TONSILLECTOMY No family history on file. Social History Tobacco Use Smoking Status Former Packs/day: 1.00 Years: 20.00 Pack years: 20.00 Types: Cigarettes Smokeless Tobacco Never Additional History Comments: None Allergies: Meloxicam Current HOME Medications: Outpatient Medications Marked as Taking for the 02/09/22 encounter (Office Visit) with Ian Morton DPM: ascorbic acid, vitamin C, (VITAMIN C) 500 MG tablet, Take 500 mg by mouth daily . cholecalciferol, vitamin D3, 1,000 unit tablet, Take 1,000 Units by mouth daily . cholecalciferol, vitamin D3, 400 unit Tab, Take by mouth daily . collagen/biotin/ascorbic acid (COLLAGEN 1500 PLUS C ORAL), Take by mouth . multivitamin (THERAGRAN) per tablet, Take 1 tablet by mouth daily . omega-3 fatty acids/fish oil (fish oil-omega-3 fatty acids) 300-1,000 mg capsule, Take 2 g by mouth daily . OBJECTIVE: Physical Examination: Integument-skin is warm dry and supple on the left foot. Neuro-intact left Musculoskeletal-pain on the plantar aspect of the second metatarsal head, contracted second proximal interphalangeal joint of the left foot that is semifixed Vascular-DP and PT pulses are palpable left foot BP 131/84 (BP Location: Right arm) Pulse 86 Temp 99.2 F (37.3 C) (Infrared) Laboratory and Additional Data Reviewed: Reviewed 02/09/22 11:08 AM: Medications documented in this encounter [facility] 02-09-2022 History of Present illness Narrative Podiatry Outpatient H&P 02/09/2022 Ian Morton DPM @[email or web address]@ Patient: Nan Frey Date of : 1970 (51 y.o.) PCP: Angy Francis, BREAD WRAPPING MACHINE FEEDER @[email or web address]@ ASSESSMENT/PLAN: Nan Frey 51 y.o. female with history of second hammertoe deformity of the left foot with metatarsalgia. Plan: Patient scheduled for second toe arthrodesis of the left foot to realign the metatarsal phalangeal joint. Patient be in a surgical shoe or boot for 30 days of the pin. Patient is explained risks and complications of all surgeries include infection, bleeding, numbness, delayed healing, swelling, scar, DVT and reoccurrence. After all questions were answered patient like to proceed with surgery at this time. Consent form signed preoperatively. Assessment & plan notes cannot be loaded without a specified hospital service. SUBJECTIVE: Chief Complaint/Reason for Visit: Patient complains of painful second hammertoe of the left foot with underlying metatarsalgia. History of Present Illness: Nan Frey is a 51 y.o. female presenting from home with complaint Of painful metatarsalgia of the corresponding second toe on the left foot. Patient is tried orthotics, shoes and anti-inflammatories which have failed to provide her with relief. Review of Systems: Integumentary:No skin rash All other systems reviewed and negative other than HPI No past medical history on file. Past Surgical History: Procedure Laterality Date SECTION, CLASSIC CHOLECYSTECTOMY HYSTERECTOMY TONSILLECTOMY No family history on file. Social History Tobacco Use Smoking Status Former Packs/day: 1.00 Years: 20.00 Pack years: 20.00 Types: Cigarettes Smokeless Tobacco Never Additional History Comments: None Allergies: Meloxicam Current HOME Medications: Outpatient Medications Marked as Taking for the 02/09/22 encounter (Office Visit) with Ian Morton DPM: ascorbic acid, vitamin C, (VITAMIN C) 500 MG tablet, Take 500 mg by mouth daily . cholecalciferol, vitamin D3, 1,000 unit tablet, Take 1,000 Units by mouth daily . cholecalciferol, vitamin D3, 400 unit Tab, Take by mouth daily . collagen/biotin/ascorbic acid (COLLAGEN 1500 PLUS C ORAL), Take by mouth . multivitamin (THERAGRAN) per tablet, Take 1 tablet by mouth daily . omega-3 fatty acids/fish oil (fish oil-omega-3 fatty acids) 300-1,000 mg capsule, Take 2 g by mouth daily . OBJECTIVE: Physical Examination: Integument-skin is warm dry and supple on the left foot. Neuro-intact left Musculoskeletal-pain on the plantar aspect of the second metatarsal head, contracted second proximal interphalangeal joint of the left foot that is semifixed Vascular-DP and PT pulses are palpable left foot BP 131/84 (BP Location: Right arm) Pulse 86 Temp 99.2 F (37.3 C) (Infrared) Laboratory and Additional Data Reviewed: Reviewed 02/09/22 11:08 AM: Medications documented in this encounter [facility] 01-23-2022 History of Present illness Narrative Consultation requested byKingsley Francis CNP for an opinion regarding large breasts and back/neck pain.. My final recommendations will be communicated back to the requesting physician by way of shared Medical record or letter to requesting physician via US mail. Family History: History of breast cancer: No Social History Smoking: No Marital Status: ROS: Mental status changes: No Chest pain difficulty breathing: No Bleeding problems: No Visual Disturbances Yes, glasses Weight change No Mood changes No Urine frequency No Joint pain Yes Skin changes No Hx of asthma, cough, wheezing No The documentation for this note was completed by Annalee Garza LPN acting as scribe for Makenzie Lawson MD. January 23, 2022 3:02 PM. I agree with the Chief Complaint, ROS, and Past Histories independently gathered by the clinical applications support specialist and the remaining scribed note accurately describes my personal service to the patient. Makenzie Lawson MD TONI Solis is a 51 year old female, whose complaint is her large breasts and the following musculoskeletal concerns: back pain, shoulder pain and neck pain. she is here (alone, with family) Duration: years Severity:increasing lately. she has 2 children, ages: 26, 22 yo- no more plans. Prior breast surgery No. Prior mammogram: Yes- 11/2021, reported negative Prior Treatment: Supportive brassier's: Yes Applications of heat and ice: Yes Exercise for pain relief: Yes Weight loss: No Over the counter medications/ NSAIDS: Yes Narcotics muscle relaxants: Yes Physical therapy: Yes Chiropractic treatment: Yes PAST MEDICAL HISTORY Diagnosis Date Anxiety state NEGATIVE HISTORY OF No TB, DM, CA, heart dis, pnuemonia PAST SURGICAL HISTORY Procedure Laterality Date CHOLECYSTECTOMY HYSTEROSCOPY, DIAGNOSTIC (SEPARATE 1999 Hysteroscopy PAST SURGICAL HISTORY OF 1995, 1999 C-Sect x 2 TONSILLECTOMY HX Bilateral 09/24/2003 TOTAL ABDOMINAL HYSTERECT W/WO RMVL TUBE OVARY 2000 Hysterectomy, LEVI Exam: Ht 174 cm (5' 8.5) Wt 103.9 kg (229 lb) BMI 34.31 kg/m . Body mass index is 34.31 kg/m . BMI-34 General appearance: healthy appearing female, no acute distress Self Perception: appropriate Mental Status a/o x 3 Musculo-Skeletal: Shoulder grooving: No Labored Breathing: No Extremity Edema: No Breast exam: Bilateral breast ptosis Palpable mass: No. Skin changes consistent with chronic irritation: No. Right Left Sternal notch - Nipple Areola 32cm 34cm IMF- Nipple Areola 05/05 05/05 Others: Asymmetry noted Impression: Bilateral Sever Breast ptosis back pain chronic I discussed with her the procedure of breast reduction and how this is different from a breast lift- she is more of a candidate for a lift. I discussed the difference between a nipple graft and the inferior pedicle technique. I discussed the incisions to be used and outlined this on. I outline the extensive skin scarring that will result from breast reduction surgery. I discussed the procedural details. I outlined the risks and complications. I discussed potential for wound healing complications and potential for nipple-areola complex loss. I told her I can not guarantee post-surgery cup size, I told her that she may or may not have a favorable cosmetic result. I discussed the anticipated postoperative course and the postoperative limitations. Advised her to think about this, she will let us know if she wants to move forward with Breast Lift surgery. Makenzei Lawson MD documented in this encounter [facility] 12-22-2021 Miscellaneous Notes Left message informing patient. Fatoumata Palomares MA ----- Message from Angy Francis APRN.BREAD WRAPPING MACHINE FEEDER sent at 12/22/2021 12:01 PM EDT ----- Mammogram negative IMPRESSION IMPRESSION: NEGATIVE There is no mammographic evidence of malignancy. A 1 year screening mammogram is recommended. documented in this encounter [facility] 12-22-2021 Miscellaneous Notes [address] [address] December 22, 2021 PID: [id number] Nan Frey [address] [place] [id number] Dear Ms. Frey, We are pleased to inform you that the results of your recent breast imaging exam on 12/21/2021 are normal. Early detection of cancer is very important. We also understand recommendations regarding breast cancer screening are controversial. Please discuss with your primary care provider which strategy is best for you and whether a mammogram is right for you. Your imaging studies and report will be kept on file at [facility] as part of your permanent medical record and are available for your continuing care. Thank you for allowing us to help in meeting your health care needs. Sincerely, Dr. Driver Interpreting Radiologist [facility] (Normal over 40) documented in this encounter [facility] 12-21-2021 Instructions Angy Francis APRN.BREAD WRAPPING MACHINE FEEDER - 12/21/2021 3:19 PM EDT ASSESSMENT/PLAN: 1. Wellness examination - ICD9: V70.0, ICD10: Z00.00 (primary diagnosis) - Counseled on healthy diet and regular exercise - Calcium intake with supplements or by diet of 1000 mg/day for under 50, 7738-0309 mg/day for 50+ - Discussed need and benefit for weight loss. BMI 34.31 kg/(m^2) - Counseled patient on limiting alcohol intake to 1 drink per day - Discussed safe sex practices and avoidance of STIs - Depression screening tool completed and reviewed with patient. Based on score and interview, patient is not at risk for depression and recommended no further intervention at this time. - Follow up for annual exam in one year 2. Encounter for screening for diabetes mellitus - ICD9: V77.1, ICD10: Z13.1 - COMP METABOLIC PANEL 3. Screening for deficiency anemia - ICD9: V78.1, ICD10: Z13.0 - CBC 4. Screening for lipid disorders - ICD9: V77.91, ICD10: Z13.220 - LIPID PANEL BASIC 5. Screening for thyroid disorder - ICD9: V77.0, ICD10: Z13.29 - TSH BLD 6. Screening for HIV (human immunodeficiency virus) - ICD9: V73.89, ICD10: Z11.4 - HIV 1 2 COMBO(AG/AB),WITH REFLEX TO DIFFERENTIATION Angy Francis APRN.BREAD WRAPPING MACHINE FEEDER documented in this encounter [facility] 12-21-2021 History of Present illness Narrative This note was created using Animated Dynamicsriter. Subjective Nan Frey is a 51 year old female here today for for WAE. No significant PMH. Patient denies changes in health since last office visit. Reports feeling well. Denies concerns or complaints today. I reviewed her past medical, surgical, social, and family histories today and updated chart. Allergies, chronic medications, and supplements were also reviewed and her list is now up to date. Preventative: she is getting her mammogram today. Last colonoscopy 07/2019 due in 5 yrs. She has had her COVID vaccines. ALLERGIES Allergen Reactions Mobic [Meloxicam] Swelling legs Current Outpatient Medications Medication Sig Dispense Refill ibuprofen (MOTRIN) 200 mg tablet Take 200 mg by mouth every 6 hours as needed. diclofenac sodium (VOLTAREN) 1 % topical gel APPLY 2 GRAMS TO AFFECTED AREA FOUR TIMES DAILY. 200 g 0 naproxen (NAPROSYN) 500 mg tablet Take 1 tablet by mouth twice daily as needed (FOR PAIN - TAKE WITH FOOD.). 60 tablet 1 No current facility-administered medications for this visit. ACTIVE PROBLEM LIST Regular Astigmatism Presbyopia Hypermetropia Anxiety Spasm of Muscle PAST MEDICAL HISTORY Diagnosis Date Anxiety state NEGATIVE HISTORY OF No TB, DM, CA, heart dis, pnuemonia PAST SURGICAL HISTORY Procedure Laterality Date CHOLECYSTECTOMY HYSTEROSCOPY, DIAGNOSTIC (SEPARATE 1998 Hysteroscopy PAST SURGICAL HISTORY OF 1995, 1999 C-Sect x 2 TONSILLECTOMY HX Bilateral 09/24/2003 TOTAL ABDOMINAL HYSTERECT W/WO RMVL TUBE OVARY 2000 Hysterectomy, LEVI Social History Tobacco Use Smoking status: Former Smoker Quit date: 04/29/2006 Years since quittin.6 Smokeless tobacco: Never Used Tobacco comment: quit 2006 Vaping Use Vaping Use: Never used Substance Use Topics Alcohol use: No Comment: very rarely Drug use: No Family History Problem Relation Age of Onset Hypertension Mother Hypertension Father Lipids Father other (stomach cancer) Father Esoph Ca (?) other (barretts es) Father Tremor Father other (memory probl) Father Hypertension Brother Dementia Paternal Grandmother 90s Heart Attack Paternal Grandfather 58 Review of Systems Constitutional: Negative for activity change, appetite change, chills, diaphoresis, fatigue, fever and unexpected weight change. Denies night sweat HENT: Negative. Negative for congestion, sinus pressure, sinus pain and sore throat. Eyes: Negative. Negative for photophobia and discharge. Respiratory: Negative for cough, chest tightness, shortness of breath and wheezing. Cardiovascular: Negative for chest pain, palpitations and leg swelling. Gastrointestinal: Negative for abdominal distention, abdominal pain, blood in stool, constipation, diarrhea, nausea and vomiting. Endocrine: Negative. Negative for cold intolerance, heat intolerance, polydipsia and polyphagia. Genitourinary: Negative for decreased urine volume, difficulty urinating, dysuria, flank pain, pelvic pain, urgency, vaginal bleeding and vaginal pain. Complete hysterectomy age 30. She was on hormone therapy 1-2 yrs and has not had any since Musculoskeletal: Positive for arthralgias. Negative for back pain, myalgias and neck pain. Left second toe pain. Seeing garnetter. Skin: Negative for color change and rash. Neurological: Negative for dizziness, facial asymmetry, weakness, light-headedness, numbness and headaches. Hematological: Negative. Negative for adenopathy. Does not bruise/bleed easily. Psychiatric/Behavioral: Negative for agitation, decreased concentration, dysphoric mood and sleep disturbance. The patient is not nervous/anxious. Objective 12/21/21 1442 BP: 122/70 BP Site: Right Arm BP Position: Sitting BP Cuff Size: Large Adult Pulse: 71 Resp: 18 Temp: 36.7 C (98 F) TempSrc: Oral SpO2: 99% Weight: 103.9 kg (229 lb) Height: 174 cm (5' 8.5) Physical Exam Vitals and nursing note reviewed. Constitutional: General: She is not in acute distress. Appearance: Normal appearance. She is not diaphoretic. HENT: Head: Normocephalic and atraumatic. Right Ear: External ear normal. Left Ear: External ear normal. Nose: Nose normal. Mouth/Throat: Pharynx: No oropharyngeal exudate. Eyes: General: Lids are normal. No scleral icterus. Right eye: No discharge. Left eye: No discharge. Conjunctiva/sclera: Conjunctivae normal. Pupils: Pupils are equal, round, and reactive to light. Neck: Vascular: Normal carotid pulses. No carotid bruit. Cardiovascular: Rate and Rhythm: Normal rate and regular rhythm. Pulses: Normal pulses. Heart sounds: Normal heart sounds, S1 normal and S2 normal. No murmur heard. No friction rub. No gallop. Pulmonary: Effort: Pulmonary effort is normal. No accessory muscle usage or respiratory distress. Breath sounds: Normal breath sounds. No decreased breath sounds, wheezing, rhonchi or rales. Chest: Chest wall: No tenderness. Abdominal: General: Bowel sounds are normal. There is no distension. Palpations: Abdomen is soft. Tenderness: There is no abdominal tenderness. Musculoskeletal: General: No tenderness. Normal range of motion. Cervical back: Normal range of motion and neck supple. Skin: General: Skin is warm and dry. Coloration: Skin is not pale. Findings: No erythema or rash. Nails: There is no clubbing. Neurological: Mental Status: She is alert and oriented to person, place, and time. Motor: No abnormal muscle tone. Coordination: Coordination normal. Deep Tendon Reflexes: Reflexes are normal and symmetric. Psychiatric: Judgment: Judgment normal. Component Latest Ref Rng & Units 01/24/2021 Protein, Total 6.3 - 8.0 g/dL 6.8 Albumin 3.9 - 4.9 g/dL 4.2 Calcium 8.5 - 10.2 mg/dL 9.5 Bilirubin, Total 0.2 - 1.3 mg/dL 0.3 Alkaline Phosphatase 34 - 123 U/L 88 AST 13 - 35 U/L 24 ALT 7 - 38 U/L 24 Glucose 74 - 99 mg/dL 96 BUN 7 - 21 mg/dL 15 Creatinine 0.58 - 0.96 mg/dL 0.93 Sodium 136 - 144 mmol/L 143 Potassium 3.7 - 5.1 mmol/L 4.4 Chloride 97 - 105 mmol/L 108 (H) CO2 22 - 30 mmol/L 28 Anion Gap 9 - 18 mmol/L 7 (L) eGFR- >60 eGFR-All Other Races >60 WBC 3.70 - 11.00 k/uL 5.43 RBC 3.90 - 5.20 m/uL 4.39 Hemoglobin 11.5 - 15.5 g/dL 13.1 Hematocrit 36.0 - 46.0 % 38.8 MCV 80.0 - 100.0 fL 88.4 MCH 26.0 - 34.0 pg 29.8 MCHC 30.5 - 36.0 g/dL 33.8 RDW-CV 11.5 - 15.0 % 12.5 Platelet Count 150 - 400 k/uL 258 MPV 9.0 - 12.7 fL 9.8 Cholesterol, Total <200 mg/dL 172 Triglyceride <150 mg/dL 63 HDL Cholesterol >39 mg/dL 57 Non HDL Cholesterol <130 mg/dL 115 Fasting Time hrs 12 VLDL Cholesterol <30 mg/dL 13 TC:HDL Ratio <5.10 3.02 LDL Cholesterol <100 mg/dL 102 (H) LDL:HDL Ratio <2.54 1.79 TSH 0.270 - 4.200 uU/mL 2.010 Vitamin D 25 Hydroxy 30.0 - 100.0 ng/mL 27.3 (L) ASSESSMENT/PLAN: 1. Wellness examination - ICD9: V70.0, ICD10: Z00.00 (primary diagnosis) - Counseled on healthy diet and regular exercise - Calcium intake with supplements or by diet of 1000 mg/day for under 50, 4339-6923 mg/day for 50+ - Discussed need and benefit for weight loss. BMI 34.31 kg/(m^2) - Counseled patient on limiting alcohol intake to 1 drink per day - Discussed safe sex practices and avoidance of STIs - Depression screening tool completed and reviewed with patient. Based on score and interview, patient is not at risk for depression and recommended no further intervention at this time. - Follow up for annual exam in one year 2. Encounter for screening for diabetes mellitus - ICD9: V77.1, ICD10: Z13.1 - COMP METABOLIC PANEL 3. Screening for deficiency anemia - ICD9: V78.1, ICD10: Z13.0 - CBC 4. Screening for lipid disorders - ICD9: V77.91, ICD10: Z13.220 - LIPID PANEL BASIC 5. Screening for thyroid disorder - ICD9: V77.0, ICD10: Z13.29 - TSH BLD Angy Francis APRN.BREAD WRAPPING MACHINE FEEDER documented in this encounter [facility] 12-15-2021 History of Present illness Narrative This note was created using Animated Dynamicsriter. Subjective Nan Frey is a 51 year old female here today requesting order for mammogram. Also concern for her large breasts contributing to her chronic left shoulder pain. PMH anxiety. Concerns for large breast and associated left shoulder pain. She reports her left breast is noticeably larger than her right breasts. Reports she is concerned that this may be adding to her left shoulder pain. She would llike to see specialist to see if reduction or lift would be beneficial. Reports wearing 42 C bra size. Anxiety: she is no longer taking Zoloft. She reports this as being able to manage without medication. ALLERGIES Allergen Reactions Mobic [Meloxicam] Swelling legs Current Outpatient Medications Medication Sig Dispense Refill ibuprofen (MOTRIN) 200 mg tablet Take 200 mg by mouth every 6 hours as needed. diclofenac sodium (VOLTAREN) 1 % topical gel APPLY 2 GRAMS TO AFFECTED AREA FOUR TIMES DAILY. 200 g 0 naproxen (NAPROSYN) 500 mg tablet Take 1 tablet by mouth twice daily as needed (FOR PAIN - TAKE WITH FOOD.). 60 tablet 1 No current facility-administered medications for this visit. ACTIVE PROBLEM LIST Regular Astigmatism Presbyopia Hypermetropia Anxiety Spasm of Muscle PAST MEDICAL HISTORY Diagnosis Date Anxiety state NEGATIVE HISTORY OF No TB, DM, CA, heart dis, pnuemonia PAST SURGICAL HISTORY Procedure Laterality Date CHOLECYSTECTOMY HYSTEROSCOPY, DIAGNOSTIC (SEPARATE 1998 Hysteroscopy PAST SURGICAL HISTORY OF 1995, 1999 C-Sect x 2 TONSILLECTOMY HX Bilateral 09/24/2003 TOTAL ABDOMINAL HYSTERECT W/WO RMVL TUBE OVARY 2000 Hysterectomy, LEVI Social History Tobacco Use Smoking status: Former Smoker Quit date: 04/29/2006 Years since quittin.6 Smokeless tobacco: Never Used Tobacco comment: quit 2006 Vaping Use Vaping Use: Never used Substance Use Topics Alcohol use: No Comment: very rarely Drug use: No Family History Problem Relation Age of Onset Hypertension Mother Hypertension Father Lipids Father other (stomach cancer) Father Esoph Ca (?) other (barretts es) Father Tremor Father other (memory probl) Father Hypertension Brother Dementia Paternal Grandmother 90s Heart Attack Paternal Grandfather 58 ,h Review of Systems Constitutional: Negative for activity change, appetite change, chills, diaphoresis, fatigue, fever and unexpected weight change. Respiratory: Negative for chest tightness, shortness of breath and wheezing. Cardiovascular: Negative for chest pain, palpitations and leg swelling. Neurological: Negative for dizziness and headaches. Psychiatric/Behavioral: Negative for dysphoric mood. The patient is not nervous/anxious. Objective BP 132/72 (BP Site: Right Arm, BP Position: Sitting, BP Cuff Size: Large Adult) Pulse 72 Temp 36.8 C (98.2 F) (Oral) Resp 18 Ht 174 cm (5' 8.5) Wt 104.2 kg (229 lb 12.8 oz) SpO2 100% BMI 34.43 kg/m \ 12/15/21 1558 12/15/21 1610 BP: 132/72 124/74 BP Site: Right Arm BP Position: Sitting BP Cuff Size: Large Adult Pulse: 72 Resp: 18 Temp: 36.8 C (98.2 F) TempSrc: Oral SpO2: 100% Weight: 104.2 kg (229 lb 12.8 oz) Height: 174 cm (5' 8.5) Physical Exam Vitals and nursing note reviewed. Constitutional: Appearance: Normal appearance. Cardiovascular: Rate and Rhythm: Normal rate and regular rhythm. Pulses: Normal pulses. Heart sounds: Normal heart sounds. Pulmonary: Effort: Pulmonary effort is normal. Breath sounds: Normal breath sounds. Chest: Breasts: Breasts are asymmetrical. Right: Normal. Left: Normal. Comments: L breast larger than right Neurological: Mental Status: She is alert. Psychiatric: Mood and Affect: Mood normal. Thought Content: Thought content normal. Judgment: Judgment normal. ASSESSMENT/PLAN: 1. Large breasts - ICD9: 611.1, ICD10: N62 (primary diagnosis) - referral to plastics for evaluation and management. - CONSULT TO PLASTIC SURGERY 2. Anxiety - ICD9: 300.00, ICD10: F41.9 - chronic controlled without medications 3. Encounter for screening mammogram for malignant neoplasm of breast - ICD9: V76.12, ICD10: Z12.31 - Completed breast exam - Encouraged monthly BSE - Follow up for annual exam in one year. - NANCY SCREENING Angy Francis APRN.DYANA documented in this encounter [facility] 12-08-2021 History of Present illness Narrative Patient: Nan Frey Date of : 1970 (51 y.o.) PCP: Sam Atkins CNP Procedures ASSESSMENT/PLAN: Nan Frey 51 y.o. female with history of metatarsalgia of the second metatarsal head on the left foot with hammertoe deformity much improved. Plan: Prescribed 1 pair full-length functional orthotics with the second metatarsal cut out for the left foot. Patient had a new metatarsal pad built to use and was instructed on Motrin if having a bad day. Reappoint in 4 to 6 weeks. Assessment & plan notes cannot be loaded without a specified hospital service. SUBJECTIVE: History Since Last Visit: Patient a 51-year-old female seen at the office today for follow-up of her metatarsalgia of the second metatarsal head left foot. Patient likes the metatarsal pad and Medrol Dosepak helped amazingly well. Patient is much improved today. Review of Systems: Unremarkable OBJECTIVE: Physical Examination: Integument-there is some thickening of the plantar skin underneath the second metatarsal left foot Neuro-intact left foot Musculoskeletal-decreased pain and swelling of the second metatarsal head left foot. Patient's got a contracted second proximal interphalangeal joint.. Vascular-DP and PT pulses are palpable in the left BP 112/76 (BP Location: Right arm, Patient Position: Sitting, BP Cuff Size: Adult) Pulse 78 Temp 98.1 F (36.7 C) (Oral) Laboratory and Additional Data Reviewed: Reviewed:[id number]} XR Foot Left 3+ Views (Standard) X-rays 3 views left foot: Patient is got a contracted second metatarsal phalangeal joint and proximal interphalangeal joint consistent with hammertoe deformity. No signs of fracture or tumor or arthritis documented in this encounter [facility] 11-24-2021 History of Present illness Narrative Patient Name: Nan Frey MR #: [id number] : 1970 Gender: female. Date of Consultation: 11/24/2021. Author: IMANI Marx Physicians: Sam Atkins CNP (Family); No ref. provider found (Referring) History of Present Illness: Nan Frey is a 51 y.o. female who follows up with painful swelling on the plantar aspect the second toe joint left foot. Patient relates its been causing the toe to go numb when increasingly swollen. Patient's been trying to run and exercise which is aggravated the problem over the last several weeks. Assessment and Plan: 1. 1. Hammer toe of second toe of left foot 2. Metatarsalgia, left foot Plan: Patient was seen and evaluated. I discussed the findings with the patient. Patient was given opportunity to ask questions. Patient elects to have the following treatment as follows: Lower Extremity: Integumentary: SEE wound picture Musculoskeletal: Positive Timmy test of the second metatarsophalangeal joint left foot.. Swelling and pain when palpating the second metatarsal phalange joint left foot. Patient's got a contracted second proximal interphalangeal joint Neurological: sensation intact Vascular:dp palpable left * No LDAs found * BP 125/80 (BP Location: Right arm, Patient Position: Sitting, BP Cuff Size: Adult) Pulse 76 Temp 98.1 F (36.7 C) (Oral) Allergy Information: I have reviewed the patient's allergies. Meloxicam Home Medications: Current Outpatient Medications Medication Sig Dispense Refill diclofenac sodium 1 % Gel APPLY 2 GRAMS TO AFFECTED AREA FOUR TIMES DAILY. ibuprofen (ADVIL,MOTRIN) 200 MG tablet Take 200 mg by mouth as needed . methylPREDNISolone (MEDROL DOSEPACK) 4 mg tablet Follow package directions . 21 tablet 0 No current facility-administered medications for this visit. Review of Systems: The following system(s) were reviewed and pertinent findings noted: Pertinent positives and negatives as mentioned above, otherwise full review of systems is negative unless mentioned below: Patient currently denies Nausea/Vomiting/Fever/Chills/Shor tness of Breath/Chest Pain. Medical History: No past medical history on file.. Surgical History: Past Surgical History: Procedure Laterality Date SECTION, CLASSIC CHOLECYSTECTOMY HYSTERECTOMY TONSILLECTOMY . Social History: Social History Socioeconomic History Marital status: Tobacco Use Smoking status: Former Smoker Packs/day: 1.00 Years: 20.00 Pack years: 20.00 Smokeless tobacco: Never Used Vaping Use Vaping Use: Never used Substance and Sexual Activity Alcohol use: No Drug use: Never Family History: No family history on file. Electronically signed by the above physician 11/24/21 documented in this encounter [facility] 11-24-2021 History of Present illness Narrative Patient Name: Nan Frey MR #: [id number] : 1970 Gender: female. Date of Consultation: 11/24/2021. Author: IMANI Marx Physicians: Sam Atkins CNP (Family); No ref. provider found (Referring) History of Present Illness: Nan Frey is a 51 y.o. female who follows up with painful swelling on the plantar aspect the second toe joint left foot. Patient relates its been causing the toe to go numb when increasingly swollen. Patient's been trying to run and exercise which is aggravated the problem over the last several weeks. Assessment and Plan: 1. 1. Hammer toe of second toe of left foot 2. Metatarsalgia, left foot Plan: Patient was seen and evaluated. I discussed the findings with the patient. Patient was given opportunity to ask questions. Patient elects to have the following treatment as follows: 1. Applied a metatarsal pad with a toe sling to take pressure off the ball the foot 2. Placed patient on a Medrol Dosepak. 3. Reappoint in 2 weeks if doing better will prescribe custom-made orthotic Lower Extremity: Integumentary: SEE wound picture Musculoskeletal: Positive Timmy test of the second metatarsophalangeal joint left foot.. Swelling and pain when palpating the second metatarsal phalange joint left foot. Patient's got a contracted second proximal interphalangeal joint Neurological: sensation intact Vascular:dp palpable left * No LDAs found * BP 125/80 (BP Location: Right arm, Patient Position: Sitting, BP Cuff Size: Adult) Pulse 76 Temp 98.1 F (36.7 C) (Oral) Allergy Information: I have reviewed the patient's allergies. Meloxicam Home Medications: Current Outpatient Medications Medication Sig Dispense Refill diclofenac sodium 1 % Gel APPLY 2 GRAMS TO AFFECTED AREA FOUR TIMES DAILY. ibuprofen (ADVIL,MOTRIN) 200 MG tablet Take 200 mg by mouth as needed . methylPREDNISolone (MEDROL DOSEPACK) 4 mg tablet Follow package directions . 21 tablet 0 No current facility-administered medications for this visit. Review of Systems: The following system(s) were reviewed and pertinent findings noted: Pertinent positives and negatives as mentioned above, otherwise full review of systems is negative unless mentioned below: Patient currently denies Nausea/Vomiting/Fever/Chills/Shor tness of Breath/Chest Pain. Medical History: No past medical history on file.. Surgical History: Past Surgical History: Procedure Laterality Date SECTION, CLASSIC CHOLECYSTECTOMY HYSTERECTOMY TONSILLECTOMY . Social History: Social History Socioeconomic History Marital status: Tobacco Use Smoking status: Former Smoker Packs/day: 1.00 Years: 20.00 Pack years: 20.00 Smokeless tobacco: Never Used Vaping Use Vaping Use: Never used Substance and Sexual Activity Alcohol use: No Drug use: Never Family History: No family history on file. Electronically signed by the above physician 11/24/21 documented in this encounter [facility] Evaluation note Diagnosis Hammer toe of second toe of left foot- Primary Metatarsalgia, left foot [facility] Diagnosis Metatarsalgia, left foot- Primary Hammer toe of second toe of left foot [facility] Diagnosis Large breasts- Primary Hypertrophy of breast Anxiety Anxiety state, unspecified Encounter for screening mammogram for malignant neoplasm of breast Other screening mammogram documented in this encounter [facility] note* Diagnosis Wellness examination- Primary Encounter for screening for diabetes mellitus Screening for diabetes mellitus Screening for deficiency anemia Screening for other and unspecified deficiency anemia Screening for lipid disorders Screening for thyroid disorder Screening for HIV (human immunodeficiency virus) Special screening examination for other specified viral diseases [facility] Diagnosis Breast ptosis- Primary Ptosis of breast Back pain, unspecified back location, unspecified back pain laterality, unspecified chronicity [facility]* Diagnosis Preop testing Unspecified pre-operative examination Hammertoe of left foot Hammer toe of left foot- Primary Preop testing Unspecified pre-operative examination Hammertoe of left foot [facility] Diagnosis Preop testing Unspecified pre-operative examination Hammertoe of left foot Hammer toe of left foot- Primary Preop testing Unspecified pre-operative examination Hammertoe of left foot [facility] Diagnosis Left foot pain- Primary Pain in soft tissues of limb No post-op complications Hammer toe of second toe of left foot [facility] Diagnosis Left foot pain- Primary Pain in soft tissues of limb [facility] Diagnosis Left foot pain- Primary Pain in soft tissues of limb No post-op complications Hammertoe of left foot [facility] Diagnosis Left foot pain- Primary Pain in soft tissues of limb [facility] Diagnosis Hyperopia of both eyes- Primary Presbyopia Optic nerve cupping of both eyes documented in this encounter [facility] note* Diagnosis Anticipatory anxiety Anxiety state, unspecified documented in this encounter [facility] note* Diagnosis Hammer toe of left foot [M20.42 (ICD-10-CM)]- Primary documented in this encounter [facility] note* Diagnosis No post-op complications- Primary Hammer toe of second toe of left foot [M20.42 (ICD-10-CM)] documented in this encounter [facility] note* Diagnosis Other fatigue- Primary Abnormal heart rate Other abnormal heart sounds Vitamin D deficiency Unspecified vitamin D deficiency Screening for deficiency anemia Screening for other and unspecified deficiency anemia Encounter for screening for diabetes mellitus Screening for diabetes mellitus Screening for lipid disorders documented in this encounter [facility] note* Diagnosis Encounter for screening mammogram for malignant neoplasm of breast Other screening mammogram documented in this encounter [facility] note* Diagnosis Wellness examination- Primary Bilateral hip pain Pain in joint, pelvic region and thigh Encounter for screening mammogram for malignant neoplasm of breast Other screening mammogram Vitamin D deficiency Unspecified vitamin D deficiency Encounter for screening for diabetes mellitus Screening for diabetes mellitus Screening for deficiency anemia Screening for other and unspecified deficiency anemia Screening for lipid disorders documented in this encounter [facility] note* Diagnosis Bilateral hip pain Pain in joint, pelvic region and thigh documented in this encounter [facility] note* Diagnosis Encounter for screening mammogram for malignant neoplasm of breast Other screening mammogram [facility] Diagnosis Elevated serum creatinine- Primary Other nonspecific findings on examination of blood documented in this encounter [facility] note* Diagnosis Hyperopia of both eyes- Primary Presbyopia Chronic dryness of both eyes documented in this encounter [facility] note* Diagnosis Posterior vitreous detachment of right eye- Primary Vitreous degeneration [facility] Diagnosis Posterior vitreous detachment of right eye- Primary Vitreous degeneration Vitreous floaters of both eyes Acute bacterial conjunctivitis of right eye documented in this encounter [facility] note* Diagnosis Acute bacterial conjunctivitis of right eye- Primary Posterior vitreous detachment of right eye Vitreous degeneration Vitreous floaters of both eyes documented in this encounter [facility] note* Diagnosis Anticipatory anxiety Anxiety state, unspecified documented in this encounter [facility] note* Diagnosis Wellness examination- Primary Osteopenia, unspecified location Post-menopausal Asymptomatic postmenopausal status (age-related) (natural) Vitamin D deficiency Unspecified vitamin D deficiency Encounter for screening for diabetes mellitus Screening for diabetes mellitus Screening for deficiency anemia Screening for other and unspecified deficiency anemia Screening for lipid disorders Screening for thyroid disorder Encounter for screening mammogram for malignant neoplasm of breast Other screening mammogram Class 2 obesity without serious comorbidity with body mass index (BMI) of 36.0 to 36.9 in adult, unspecified obesity type [facility]* Diagnosis Acute cystitis with hematuria- Primary documented in this encounter [facility] Work Phone: Evaluation note* Diagnosis Osteopenia, unspecified location Post-menopausal Asymptomatic postmenopausal status (age-related) (natural) documented in this encounter [facility] note* Diagnosis Encounter for screening mammogram for malignant neoplasm of breast Other screening mammogram documented in this encounter [facility] note* Diagnosis Acute cystitis with hematuria- Primary Acute cystitis Dysuria Chronic constipation Unspecified constipation S/P hysterectomy Acquired absence of both cervix and uterus [facility] Diagnosis Acute cystitis with hematuria- Primary Urinary frequency documented in this encounter [facility] Work Phone: Evaluation note* Diagnosis Onset Date Resolution Status Admit Date Urinary tract infection acute A ugust 2024 10:47am [facility] Work Phone: Instructions* Attachments The following attachments cannot be sent through Care Everywhere. * Hammer Toe (Serbian) documented in [facility] encounter[facility] for referral (narrative)* Diagnostic Procedure Only (Routine) - Closed Specialty Diagnoses / Procedures Referred By Contac t Referred To Contact XR IMAGING Diagnoses Bilateral hip pain Procedures XR HIP BILATERAL 5V PEL/AP/LAT EACH HIP RADEX HIPS BILATERAL WITH PELVIS MINIMUM 5 VIEWS Angy Francis, SPOT WELDER LINE.BREAD WRAPPING MACHINE FEEDER [address] [place] [address] [place] [address] Referral ID Status Reason Start Date Expiration Date V isits Requested Visits Authorized [id number] Closed Auto-Generate d Referral 09/24/2023 09/23/2024 1 1 * Diagnostic Procedure Only (Routine) - Authorized Specialty Diagnoses / Procedures Referred By Contac t Referred To Contact BR IMAGING Diagnoses Encounter for screening mammogram for malignant neoplasm of breast Procedures NANCY SCREENING SCREENING MAMMOGRAPHY BI 2-VIEW BREAST INC CAD Angy Francis APRN.BREAD WRAPPING MACHINE FEEDER [address] [place] [address] [facility] [address] [place] [address] Referral ID Status Reason Start Date Expiration Date Visits Requested Visits Authorized [id number] Authorized Auto-Generat ed Referral 01/09/2024 02/07/2025 1 1 [facility] for referral (narrative)No reason for referral information [facility] Work [facility]: Reason for visit Narrative* Diagnostic Procedure Only (Routine) - Closed Specialty Diagnoses / Procedures Referred By Axel t Referred To Contact BR IMAGING Diagnoses Encounter for screening mammogram for malignant neoplasm of breast Procedures NANCY SCREENING SCREENING MAMMOGRAPHY BI 2-VIEW BREAST INC CAD Angy Francis APRN.BREAD WRAPPING MACHINE FEEDER [address] [place] [address] [facility] [address] [place] [address] Referral ID Status Reason Start Date Expiration Date V isits Requested Visits Authorized [id number] Closed Auto-Generate d Referral 01/04/2023 02/03/2024 1 1 [facility] for visit Narrative* Diagnostic Procedure Only (Routine) - Closed Specialty Diagnoses / Procedures Referred By Froylanac t Referred To Contact XR IMAGING Diagnoses Bilateral hip pain Procedures XR HIP BILATERAL 5V PEL/AP/LAT EACH HIP RADEX HIPS BILATERAL WITH PELVIS MINIMUM 5 VIEWS Angy Francis APRN.BREAD WRAPPING MACHINE FEEDER [address] [place] [address] [place] [address] Referral ID Status Reason Start Date Expiration Date V isits Requested Visits Authorized [id number] Closed Auto-Generate d Referral 09/24/2023 09/23/2024 1 1 [facility] for visit Narrative* Diagnostic Procedure Only (Routine) - Closed Specialty Diagnoses / Procedures Referred By Contac t Referred To Contact BR IMAGING Diagnoses Encounter for screening mammogram for malignant neoplasm of breast Procedures NANCY SCREENING SCREENING MAMMOGRAPHY BI 2-VIEW BREAST INC CAD Angy Francis, SPOT WELDER LINE.BREAD WRAPPING MACHINE FEEDER [address] [place] [address] [facility] [address] [place] [address] Referral ID Status Reason Start Date Expiration Date V isits Requested Visits Authorized [id number] Closed Auto-Generate d Referral 01/09/2024 02/07/2025 1 1 [facility] for visit Narrative* Diagnostic Procedure Only (Routine) - Closed Specialty Diagnoses / Procedures Referred By Contac t Referred To Contact XR IMAGING Diagnoses Osteopenia, unspecified location Post-menopausal Procedures DXA-AXIAL SKELETON DXA BONE DENSITY STUDY / SITES AXIAL SKAngy Winston, SPOT WELDER LINE.BREAD WRAPPING MACHINE FEEDER [address] [place] [address] Phone: tel: fax: [place] [address] Referral ID Status Reason Start Date Expiration Date V isits Requested Visits Authorized [id number] Closed Auto-Generate d Referral 01/29/2025 02/28/2026 1 1 [facility] for visit Narrative* Diagnostic Procedure Only (Routine) - Closed Specialty Diagnoses / Procedures Referred By Contac t Referred To Contact BR IMAGING Diagnoses Encounter for screening mammogram for malignant neoplasm of breast Procedures NANCY SCREENING W GINGER SCREENING DIGITAL BREAST TOMOSYNTHESIS BI SCREENING MAMMOGRAPHY BI 2-VIEW BREAST INC CAD Angy Francis, SPOT WELDER LINE.BREAD WRAPPING MACHINE FEEDER [address] [place] [address] Phone: tel: fax: BR IM[facility] [address] [place] [address] Referral ID Status Reason Start Date Expiration Date V isits Requested Visits Authorized [id number] Closed Auto-Generate d Referral 01/29/2025 02/28/2026 1 1 [facility] Summary Purpose Family History No Family History Records FoundNo Family History Records FoundNo Family History Records FoundNo Family History Records FoundNo Family History Records FoundNo Family History Records FoundNo Family History Records FoundNo Family History Records FoundNo Family History Records FoundNo Family History Records FoundNo Family History Records FoundNo Family History Records FoundNo Family History Records Found Advance Directives No Advanced Directives Records FoundDocuments on File Type Date Recorded 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 Advance Directives and Living Will Latest Code Status on File Code Status Date Activated Date Inactivated Comments Full Code 02/22/2022 12:43 PM 02/22/2022 3:34 PM Latest Code Status on File Date Activated Date Inactivated Comments 02/22/2022 12:43 PM 02/22/2022 3:34 PM Latest Code Status on File Code Status Date Activated Date Inactivated Comments Full Code 02/22/2022 12:43 PM 02/22/2022 3:34 PM Reason for Referral Status Reason Specialty Diagnoses / Procedures Referred By Contact Referred To Contact Authorized Patient Preference Physical Therapy Diagnoses Left shoulder pain, unspecified chronicity Shankar Howard MD [address] [place] [address] Status Reason Specialty Diagnoses / Procedures Referred By Contact Referred To Contact Closed Sports Medicine Diagnoses Right shoulder pain, unspecified chronicity Bud Dudley MD [address] [place], [place] [id number] Shankar Howard MD [address] [place] [id number] Specialty Diagnoses / Procedures Referred By Contac t Referred To Contact Plastic Surgery Diagnoses Large breasts Procedures CONSULT TO PLASTIC SURGERY OFFICE/OUTPATIENT [facility] 60-74 MINUTES Angy Francis, SPOT WELDER LINE.BREAD WRAPPING MACHINE FEEDER [address] [place] [address] Referral ID Status Reason Start Date Expiration Date Visits Requested Visits Authorized [id number] Authorized PCP Requested Referral 12/15/2021 12/15/2022 1 1 Specialty Diagnoses / Procedures Referred By Contac t Referred To Contact BR IMAGING Diagnoses Encounter for screening mammogram for malignant neoplasm of breast Procedures NANCY SCREENING SCREENING MAMMOGRAPHY BI 2-VIEW BREAST INC CAD Angy Francis, SPOT WELDER LINE.BREAD WRAPPING MACHINE FEEDER [address] [place] [address] Br Imaging [address] [place] [address] Referral ID Status Reason Start Date Expiration Date Visits Requested Visits Authorized [id number] Authorized Auto-Generat ed Referral 12/15/2021 01/14/2023 1 1 History of Present Illness * Shankar Howard MD - 04/30/2017 11:34 AM EDT Dictation on: 04/30/2017 11:36 AM by: SHANKAR HOWARD [[id number]] in this encounter Assessments Diagnosis Bursitis/tendonitis, shoulde r - Primary Unspecified disorders of bursae and tendons in shoulder region Right shoulder pain, unspeci fied chronicity Left shoulder pain, unspecif ied chronicity Cervical radiculopathy at C6 Brachial neuritis or radiculitis nos Medications Administered Section Active Administered Medications - up to 3 most recent administrations Medication Order MAR Action Action Date Dose Rate Site tropicamide 0.5 % 1 Drop (MYDRIACYL) 1 Drop, BOTH EYES, DIRECTED, Starting on Sun05/12/22 at 1200, Until Sun05/12/22 at 2359, Administer for dilation Given 05/12/2022 12:00 PM EDT 1 Drop Chief Complaint and Reason for Visit Chief Complaint Admit Date new- pressure and discomfort April 10:47am Reason for Visit Admit Date Urinary tract infection May 08 10:47am Additional Source Comments INFORMATION SOURCE (unrecogn ized section and content) DATE CREATED AUTHOR 03/18/2018 [facility] DATE CREATED AUTHOR AUTHOR'S ORGANIZ ATION 05/17/2018 [facility] DATE CREATED AUTHOR AUTHOR'S ORGANIZ ATION 09/26/2018 [facility] DATE CREATED AUTHOR AUTHOR'S ORGANIZ ATION 10/08/2019 [facility] DATE CREATED AUTHOR AUTHOR'S ORGANIZ ATION 11/02/2020 [facility] DATE CREATED AUTHOR AUTHOR'S ORGANIZ ATION 03/21/2021 [facility] DATE CREATED AUTHOR AUTHOR'S ORGANIZ ATION 03/02/2022 [facility] DATE CREATED AUTHOR AUTHOR'S ORGANIZ ATION 08/28/2022 [facility] DATE CREATED AUTHOR AUTHOR'S ORGANIZ ATION 11/22/2024 [facility] DATE CREATED AUTHOR AUTHOR'S ORGANIZ ATION 03/22/2025 [facility] DATE CREATED AUTHOR AUTHOR'S ORGANIZ ATION 2025 [facility] DATE CREATED AUTHOR AUTHOR'S ORGANIZ ATION 04/09/2025 [facility] DATE CREATED AUTHOR AUTHOR'S ORGANIZ ATION 05/13/2025 [facility] Reason for Visit (unrecogniz ed section and content) Reason Comments Pain Status Reason Specialty Diagnoses / Procedures Referred By Contact Referred To Contact Closed Sports Medicine Diagnoses Right shoulder pain, unspecified chronicity Bud Dudley MD [address] [place] [address] Shankar Howard MD [address] [place] [id number] Reason Comments Foot Pain Painful lump under 2 nd left toe. Pain radiating into toe and on top of foot. Foot will go numb and burn when she runs. Reason Comments Foot Pain Follow up left secon d hammertoe and metatarsal pain. Said it felt better with the metatarsal wrap, but it got stretched out. Reason Comments Wellness Reason Comments Results Reason Comments Consult Breast reduction Reason Comments Follow-up H&P Reason Comments Post-op Left ft 2nd toe vernell er repair- repeat x-rays- DOS 02-22-2022 Reason Comments Post-op Left foot, second to e arthrodesis, doing good, pain comes and goes, no complaints today Reason Comments Post-op L foot hammer toe re pair - pin being pulled today - pt is doing well Reason Comments Post-op Pt states the 2nd le ft toe still swells and the whole foot by the end of the day. Pt states she does not have pain but her does feels numb at times and by the end of the day the tip of her 2nd toe will be tender. Reason Comments Yearly Exam Reason Comments Post-op Post op left second toe arthrodesis. She has had something coming out of incision area. Reason Comments Follow-up L foot 2nd toe arthr odesis - pt is doing ok - pt states that she still has some pain in the toe and the top of the foot- pt has been keeping the toe taped Reason Comments Follow-up L 2nd toe - hammer t oe repair - repeat xrays - pt states she is doing ok- pt keeps the toe taped and has been wearing her tennis shoes Reason Comments Orders Reason Comments Lab Orders Reason Comments Flashes Right Eye Reason Comments Red Eye Right Eye Eye Burning Right Eye Foreign Body Sensation Right eye Posterior Vitreous Detachment Evaluation Right eye Flashes Right Eye Right eye - at night , starting to get better Reason Comments Conjunctivitis Follow Up Right eye Reason Comments Medication Request Pt here for Ativan f or flight Reason Comments Well Adult Reason Onset Date Comments Results 02/09/2025 Reason Comments Urinary Frequency Pelvic pressure, spa sm x 4 days Reason Comments UTI Reason Comments UTI Went to urgent care 2 days ago and was given an antibiotic but this morning she woke up this morning with pain again Reason Comments Urinary Urgency Frequency, bladder s pasms x 1 week Reason Onset Date Comments Results 03/04/2025 Care Teams (unrecognized sec tion and content) Report Programmer Relationship Specialty Start Date End Date Sam Atkins, BREAD WRAPPING MACHINE FEEDER [address] [place] [address] PCP - General Nurse Practitioner 04/30/17 Report Programmer Relationship Specialty Start Date End Date Sam Atkins, BREAD WRAPPING MACHINE FEEDER [address] [place] [address] PCP - General Nurse Practitioner 04/30/17 Report Programmer Relationship Specialty Start Date End Date Angy Francis, SPOT WELDER LINE.BREAD WRAPPING MACHINE FEEDER [address] [place] [address] PCP - General Internal Medicine 06/30/19 Report Programmer Relationship Specialty Start Date End Date Angy Francis, SPOT WELDER LINE.BREAD WRAPPING MACHINE FEEDER [address] [place] [address] PCP - General Internal Medicine 06/30/19 Report Programmer Relationship Specialty Start Date End Date Angy Francis, SPOT WELDER LINE.BREAD WRAPPING MACHINE FEEDER [address] [place] [address] PCP - General Internal Medicine 06/30/19 Report Programmer Relationship Specialty Start Date End Date Angy Francis SPOT WELDER LINE.BREAD WRAPPING MACHINE FEEDER [address] [place] [address] PCP - General Internal Medicine 06/30/19 Report Programmer Relationship Specialty Start Date End Date Angy Francis, SPOT WELDER LINE.BREAD WRAPPING MACHINE FEEDER [address] [place] [address] PCP - General Internal Medicine 06/30/19 Report Programmer Relationship Specialty Start Date End Date Angy Francis, BREAD WRAPPING MACHINE FEEDER [address] [place] [address] PCP - General Nurse Practitioner 02/01/22 Report Programmer Relationship Specialty Start Date End Date Angy Francis, BREAD WRAPPING MACHINE FEEDER [address] [place] [address] PCP - General Nurse Practitioner 02/01/22 Report Programmer Relationship Specialty Start Date End Date Angy Francis, BREAD WRAPPING MACHINE FEEDER [address] [place] [address] PCP - General Nurse Practitioner 02/01/22 Report Programmer Relationship Specialty Start Date End Date Angy Francis, BREAD WRAPPING MACHINE FEEDER [address] [place] [address] PCP - General Nurse Practitioner 02/01/22 Report Programmer Relationship Specialty Start Date End Date Angy Francis SPOT WELDER LINE.BREAD WRAPPING MACHINE FEEDER [address] [place] [address] PCP - General Internal Medicine 06/30/19 Report Programmer Relationship Specialty Start Date End Date Angy Francis SPOT WELDER LINE.BREAD WRAPPING MACHINE FEEDER [address] [place] [address] PCP - General Internal Medicine 06/30/19 Report Programmer Relationship Specialty Start Date End Date Angy Francis, BREAD WRAPPING MACHINE FEEDER [address] [place] [address] PCP - General Nurse Practitioner 02/01/22 Report Programmer Relationship Specialty Start Date End Date Angy Francis SPOT WELDER LINE.BREAD WRAPPING MACHINE FEEDER [address] [place] [address] PCP - General Internal Medicine 06/30/19 Report Programmer Relationship Specialty Start Date End Date Angy Francis SPOT WELDER LINE.BREAD WRAPPING MACHINE FEEDER [address] [place] [address] PCP - General Internal Medicine 06/30/19 Report Programmer Relationship Specialty Start Date End Date Angy Francis SPOT WELDER LINE.BREAD WRAPPING MACHINE FEEDER [address] [place] [address] PCP - General Internal Medicine 06/30/19 Report Programmer Relationship Specialty Start Date End Date Angy Francis SPOT WELDER LINE.BREAD WRAPPING MACHINE FEEDER [address] [place] [address] PCP - General Internal Medicine 06/30/19 Report Programmer Relationship Specialty Start Date End Date Angy Francis SPOT WELDER LINE.BREAD WRAPPING MACHINE FEEDER [address] [place] [address] PCP - General Internal Medicine 06/30/19 Report Programmer Relationship Specialty Start Date End Date Angy Francis SPOT WELDER LINE.BREAD WRAPPING MACHINE FEEDER [address] [place] [address] PCP - General Internal Medicine 06/30/19 Report Programmer Relationship Specialty Start Date End Date Angy Francis, SPOT WELDER LINE.BREAD WRAPPING MACHINE FEEDER [address] [place] [address] PCP - General Internal Medicine 06/30/19 Report Programmer Relationship Specialty Start Date End Date Angy Francis, SPOT WELDER LINE.BREAD WRAPPING MACHINE FEEDER [address] [place] [address] PCP - General Internal Medicine 06/30/19 Report Programmer Relationship Specialty Start Date End Date Angy Francis, SPOT WELDER LINE.BREAD WRAPPING MACHINE FEEDER [address] [place] [address] PCP - General Internal Medicine 06/30/19 Report Programmer Relationship Specialty Start Date End Date Angy Francis, SPOT WELDER LINE.BREAD WRAPPING MACHINE FEEDER [address] [place] [address] PCP - General Internal Medicine 06/30/19 Report Programmer Relationship Specialty Start Date End Date Angy Francis, SPOT WELDER LINE.BREAD WRAPPING MACHINE FEEDER [address] [place] [address] PCP - General Internal Medicine 06/30/19 Report Programmer Relationship Specialty Start Date End Date Angy Francis, SPOT WELDER LINE.BREAD WRAPPING MACHINE FEEDER [address] [place] [address] PCP - General Internal Medicine 06/30/19 Report Programmer Relationship Specialty Start Date End Date Angy Francis, SPOT WELDER LINE.BREAD WRAPPING MACHINE FEEDER [address] [place] [address] PCP - General Internal Medicine 06/30/19 Report Programmer Relationship Specialty Start Date End Date Angy Francis, SPOT WELDER LINE.BREAD WRAPPING MACHINE FEEDER [address] [place] [address] PCP - General Internal Medicine 06/30/19 Report Programmer Relationship Specialty Start Date End Date Angy Francis SPOT WELDER LINE.BREAD WRAPPING MACHINE FEEDER [address] [place] [address] PCP - General Internal Medicine 06/30/19 Report Programmer Relationship Specialty Start Date End Date Angy Francis, SPOT WELDER LINE.BREAD WRAPPING MACHINE FEEDER [address] [place] [address] PCP - General Internal Medicine 06/30/19 Report Programmer Relationship Specialty Start Date End Date Angy Francis, SPOT WELDER LINE.BREAD WRAPPING MACHINE FEEDER [address] [place] [address] PCP - General Internal Medicine 06/30/19 Report Programmer Relationship Specialty Start Date End Date Angy Francis, SPOT WELDER LINE.BREAD WRAPPING MACHINE FEEDER [address] [place] [address] PCP - General Internal Medicine 06/30/19 Report Programmer Relationship Specialty Start Date End Date Angy Francis, SPOT WELDER LINE-BREAD WRAPPING MACHINE FEEDER [address] [place] [address] PCP - General 09/24/18 Report Programmer Relationship Specialty Start Date End Date Angy Francis, SPOT WELDER LINE.BREAD WRAPPING MACHINE FEEDER [address] [place] [address] PCP - General Internal Medicine 06/30/19 Report Programmer Relationship Specialty Start Date End Date Angy Francis, SPOT WELDER LINE.BREAD WRAPPING MACHINE FEEDER [address] [place] [address] PCP - General Internal Medicine 06/30/19 Report Programmer Relationship Specialty Start Date End Date Angy Francis APRN.BREAD WRAPPING MACHINE FEEDER [address] [place] [address] PCP - General Internal Medicine 06/30/19 Report Programmer Relationship Specialty Start Date End Date Angy Francis, SPOT WELDER LINE-BREAD WRAPPING MACHINE FEEDER [address] [place] [address] PCP - General 09/24/18 Report Programmer Relationship Specialty Start Date End Date Angy Francis APRN.BREAD WRAPPING MACHINE FEEDER [address] [place], [place] [id number] PCP - General Internal Medicine 06/30/19 Team Status: Active Member Role/Relationship Status Dates Out of [facility] Doctor Family Provider Active Out of [facility] Doctor Primary Care Provider Active Team Status: Inactive Member Role/Relationship Status Dates Out of [facility] Doctor Primary Care Provider Active Start: May 08, 2025 End: May 08, 2025 Out of [facility] Doctor Referring Provider Active Sta rt: May 08, 2025 End: May 08, 2025 Dr. Carmita Encarnacion MD Attending Provider Active Start: May 08, 2025 End: May 08, 2025 Source Comments (unrecognize d section and content) In the event this informatio n is protected by the Federal Confidentiality of Alcohol and Drug Abuse Patient Records regulations: The Federal rules restrict any use of the information to criminally investigate or prosecute any alcohol or drug abuse patient.[facility] the event this information is protected by the Federal Confidentiality of Alcohol and Drug Abuse Patient Records regulations: The Federal rules restrict any use of the information to criminally investigate or prosecute any alcohol or drug abuse patient.[facility] the event this information is protected by the Federal Confidentiality of Alcohol and Drug Abuse Patient Records regulations: The Federal rules restrict any use of the information to criminally investigate or prosecute any alcohol or drug abuse patient.[facility] the event this information is protected by the Federal Confidentiality of Alcohol and Drug Abuse Patient Records regulations: The Federal rules restrict any use of the information to criminally investigate or prosecute any alcohol or drug abuse patient.[facility] the event this information is protected by the Federal Confidentiality of Alcohol and Drug Abuse Patient Records regulations: The Federal rules restrict any use of the information to criminally investigate or prosecute any alcohol or drug abuse patient.[facility] the event this information is protected by the Federal Confidentiality of Alcohol and Drug Abuse Patient Records regulations: The Federal rules restrict any use of the information to criminally investigate or prosecute any alcohol or drug abuse patient.[facility] the event this information is protected by the Federal Confidentiality of Alcohol and Drug Abuse Patient Records regulations: The Federal rules restrict any use of the information to criminally investigate or prosecute any alcohol or drug abuse patient.[facility] the event this information is protected by the Federal Confidentiality of Alcohol and Drug Abuse Patient Records regulations: The Federal rules restrict any use of the information to criminally investigate or prosecute any alcohol or drug abuse patient.[facility] the event this information is protected by the Federal Confidentiality of Alcohol and Drug Abuse Patient Records regulations: The Federal rules restrict any use of the information to criminally investigate or prosecute any alcohol or drug abuse patient.[facility] the event this information is protected by the Federal Confidentiality of Alcohol and Drug Abuse Patient Records regulations: The Federal rules restrict any use of the information to criminally investigate or prosecute any alcohol or drug abuse patient.[facility] the event this information is protected by the Federal Confidentiality of Alcohol and Drug Abuse Patient Records regulations: The Federal rules restrict any use of the information to criminally investigate or prosecute any alcohol or drug abuse patient.[facility] the event this information is protected by the Federal Confidentiality of Alcohol and Drug Abuse Patient Records regulations: The Federal rules restrict any use of the information to criminally investigate or prosecute any alcohol or drug abuse patient.[facility] the event this information is protected by the Federal Confidentiality of Alcohol and Drug Abuse Patient Records regulations: The Federal rules restrict any use of the information to criminally investigate or prosecute any alcohol or drug abuse patient.[facility] the event this information is protected by the Federal Confidentiality of Alcohol and Drug Abuse Patient Records regulations: The Federal rules restrict any use of the information to criminally investigate or prosecute any alcohol or drug abuse patient.[facility]In the event this information is protected by the Federal Confidentiality of Alcohol and Drug Abuse Patient Records regulations: The Federal rules restrict any use of the information to criminally investigate or prosecute any alcohol or drug abuse patient.[facility] the event this information is protected by the Federal Confidentiality of Alcohol and Drug Abuse Patient Records regulations: The Federal rules restrict any use of the information to criminally investigate or prosecute any alcohol or drug abuse patient.[facility]In the event this information is protected by the Federal Confidentiality of Alcohol and Drug Abuse Patient Records regulations: The Federal rules restrict any use of the information to criminally investigate or prosecute any alcohol or drug abuse patient.[facility] the event this information is protected by the Federal Confidentiality of Alcohol and Drug Abuse Patient Records regulations: The Federal rules restrict any use of the information to criminally investigate or prosecute any alcohol or drug abuse patient.[facility] HospitalIn the event this information is protected by the Federal Confidentiality of Alcohol and Drug Abuse Patient Records regulations: The Federal rules restrict any use of the information to criminally investigate or prosecute any alcohol or drug abuse patient.[facility]In the event this information is protected by the Federal Confidentiality of Alcohol and Drug Abuse Patient Records regulations: The Federal rules restrict any use of the information to criminally investigate or prosecute any alcohol or drug abuse patient.[facility]In the event this information is protected by the Federal Confidentiality of Alcohol and Drug Abuse Patient Records regulations: The Federal rules restrict any use of the information to criminally investigate or prosecute any alcohol or drug abuse patient.[facility]In the event this information is protected by the Federal Confidentiality of Alcohol and Drug Abuse Patient Records regulations: The Federal rules restrict any use of the information to criminally investigate or prosecute any alcohol or drug abuse patient.[facility]In the event this information is protected by the Federal Confidentiality of Alcohol and Drug Abuse Patient Records regulations: The Federal rules restrict any use of the information to criminally investigate or prosecute any alcohol or drug abuse patient.[facility]In the event this information is protected by the Federal Confidentiality of Alcohol and Drug Abuse Patient Records regulations: The Federal rules restrict any use of the information to criminally investigate or prosecute any alcohol or drug abuse patient.[facility]In the event this information is protected by the Federal Confidentiality of Alcohol and Drug Abuse Patient Records regulations: The Federal rules restrict any use of the information to criminally investigate or prosecute any alcohol or drug abuse patient.[facility] HospitalIn the event this information is protected by the Federal Confidentiality of Alcohol and Drug Abuse Patient Records regulations: The Federal rules restrict any use of the information to criminally investigate or prosecute any alcohol or drug abuse patient.[facility]In the event this information is protected by the Federal Confidentiality of Alcohol and Drug Abuse Patient Records regulations: The Federal rules restrict any use of the information to criminally investigate or prosecute any alcohol or drug abuse patient.[facility] HospitalIn the event this information is protected by the Federal Confidentiality of Alcohol and Drug Abuse Patient Records regulations: The Federal rules restrict any use of the information to criminally investigate or prosecute any alcohol or drug abuse patient.[facility]In the event this information is protected by the Federal Confidentiality of Alcohol and Drug Abuse Patient Records regulations: The Federal rules restrict any use of the information to criminally investigate or prosecute any alcohol or drug abuse patient.[facility]In the event this information is protected by the Federal Confidentiality of Alcohol and Drug Abuse Patient Records regulations: The Federal rules restrict any use of the information to criminally investigate or prosecute any alcohol or drug abuse patient.[facility] HospitalIn the event this information is protected by the Federal Confidentiality of Alcohol and Drug Abuse Patient Records regulations: The Federal rules restrict any use of the information to criminally investigate or prosecute any alcohol or drug abuse patient.[facility] HospitalIn the event this information is protected by the Federal Confidentiality of Alcohol and Drug Abuse Patient Records regulations: The Federal rules restrict any use of the information to criminally investigate or prosecute any alcohol or drug abuse patient.[facility] HospitalIn the event this information is protected by the Federal Confidentiality of Alcohol and Drug Abuse Patient Records regulations: The Federal rules restrict any use of the information to criminally investigate or prosecute any alcohol or drug abuse patient.[facility] HospitalIn the event this information is protected by the Federal Confidentiality of Alcohol and Drug Abuse Patient Records regulations: The Federal rules restrict any use of the information to criminally investigate or prosecute any alcohol or drug abuse patient.[facility] HospitalIn the event this information is protected by the Federal Confidentiality of Alcohol and Drug Abuse Patient Records regulations: The Federal rules restrict any use of the information to criminally investigate or prosecute any alcohol or drug abuse patient.[facility] HospitalIn the event this information is protected by the Federal Confidentiality of Alcohol and Drug Abuse Patient Records regulations: The Federal rules restrict any use of the information to criminally investigate or prosecute any alcohol or drug abuse patient.[facility] Goals (unrecognized section and content) Goals may be documented in a n alternate section FOR RECORDS PERTAINING TO PATIENTS WHO ARE OR HAVE BEEN ENROLLED IN A CHEMICAL DEPENDENCY/SUBSTANCEABUSE PROGRAM, SOME INFORMATION MAY BE OMITTED. This clinical summary was aggregated from multiple sources. Caution should be exercised in using it in the provision of clinical care. This summary normalizes information from multiple sources, and as a consequence, information in this document may materially change the coding, format and clinical context of patient data. In addition, data may be omitted in some cases. CLINICAL DECISIONS SHOULD BE BASED ON THE PRIMARY CLINICAL RECORDS. [facility] [employer] [facility]. provides no warranty or guarantee of the accuracy or completeness of information in this document.
== END | disposition home or self-care (01) ==
LOC: US 14:16
PROVIDERS: PCP Nurse Practitioner Adult Health; Referring Provider Urology; Visit Provider Urology
DX: N39.0 Urinary tract infection, site not specified (principal)
CPT/HCPCS: 76770